=== PATIENT | male | born 1970 | race Caucasian/White ===

== ENCOUNTER → 2018-07-08 | Outpatient (CLI) | payer MEDICAID ==
--- NOTE | 2018-07-08 12:04 | XR ---
EXAMINATION TYPE: XR knee complete bilateral DATE OF EXAM: 07/08/2018 COMPARISON: NONE HISTORY: Pain TECHNIQUE: Three views are submitted. FINDINGS: Joint spaces are preserved. Osseous structures are intact. No acute fracture seen. IMPRESSION: 1. No acute fracture or dislocation. If symptoms persist consider MRI.
== END ==
LOC: RADXRYALE 11:45
PROVIDERS: ATTEND Family Medicine
DX: M25.561 Pain in right knee (principal); M25.562 Pain in left knee

== ENCOUNTER → 2018-07-22 | Outpatient (CLI) | payer MEDICAID ==
--- NOTE | 2018-07-22 13:27 | US ---
EXAMINATION TYPE: US venous doppler duplex LE LT DATE OF EXAM: 07/22/2018 1:17 PM COMPARISON: NONE CLINICAL HISTORY: M25.562 Pain in left knee. bilat knee strain 2+ weeks ago, h/o varicose vein stripp ing, no h/o dvt SIDE PERFORMED: Left TECHNIQUE: The lower extremity deep venous system is examined utilizing real time linear array sonog alistair with graded compression, doppler sonography and color-flow sonography. VESSELS IMAGED: External Iliac Vein (EIV) Common Femoral Vein Deep Femoral Vein Greater Saphenous Vein * Femoral Vein Popliteal Vein Small Saphenous Vein * Proximal Calf Veins (* superficial vessels) Left Leg: Appears negative for DVT Grayscale, color doppler, spectral doppler imaging performed of the deep veins of the left lower extr emity. There is normal flow, compressibility, vascular waveforms. IMPRESSION: No ultrasound evidence for acute DVT in the left lower extremity.
== END ==
LOC: RADUSWWP 12:49
PROVIDERS: ATTEND Orthopaedic Surgery
DX: M79.662 Pain in left lower leg (principal)

== ENCOUNTER → 2018-08-09 | Outpatient (CLI) | payer MEDICAID ==
--- NOTE | 2018-08-09 14:31 | MR ---
EXAMINATION TYPE: MR knee LT wo con DATE OF EXAM: 08/09/2018 COMPARISON: Bilateral knee x-ray July 08, 2018 HISTORY: Left knee pain, primary osteoarthritis, and effusion all per order. Pain and swelling after running injury 6 weeks ago per patient TECHNIQUE: Multiplanar, multisequence images of the knee is performed without IV contrast. FINDINGS: MEDIAL MENISCUS: Some medial extrusion of medial meniscus is present on coronal images with increased signal not extending to articular surface. LATERAL MENISCUS: Anterior and posterior horns are intact without tear. CRUCIATE LIGAMENTS: The anterior and posterior cruciate ligaments are intact and unremarkable. COLLATERAL LIGAMENTS: The medial collateral ligament and lateral collateral ligament complex are inta ct . Mild to moderate fluid signal surrounds the distal aspect of medial collateral ligament complex paracoronal image 18. EXTENSOR MECHANISM: Visualized quadriceps and patellar tendons are intact. EFFUSION: No significant suprapatellar joint effusion. POPLITEAL CYST: No popliteal/wong cyst. TRICOMPARTMENT SPACES: There is mild tricompartment joint space loss most prominent medial tibiofemor al compartment and mild spurring most prominent patellofemoral compartment. CARTILAGE: Some thinning of articular cartilage along posterior patellar pole consistent with chondra l malacia patella is present. No full-thickness loss is seen. BONE MARROW SIGNAL: There is focal area of diminished T1 signal measuring 2.6 cm transversely by 2.6 cm AP diameter sagittal image 23 and coronal image 18 with surrounding T2 hyperintensity consistent w ith nondisplaced transverse fracture and associated edema centered in the medial tibial plateau. Surr ounding edema measures roughly 4 cm transversely. OTHER: No additional significant abnormality is appreciated. IMPRESSION: 1. Acute nondisplaced transverse or stress fracture proximal tibial epiphysis with surrounding osseou s contusion. 2. Suspect intrasubstance tear of medial meniscus, no full-thickness meniscal tear. 3. Mild to moderate distal MCL sprain injury. 4. Background mild to borderline moderate osteoarthritic changes.
== END ==
LOC: RADMRIMAIN 13:16
PROVIDERS: ATTEND Orthopaedic Surgery
DX: S83.412A Sprain of medial collateral ligament of left knee, initial encounter (principal); M17.12 Unilateral primary osteoarthritis, left knee

== ENCOUNTER 2019-02-19 16:15 | Inpatient (IN) | payer MEDICAID ==
[2019-02-19] MEDS ORDERED: SODIUM CHLORIDE 0.9% 1,000 ML IV STA (17:43)
--- NOTE | 2019-02-19 18:14 | ED ---
General Adult HPI - General Chief complaint: Extremity Problem,Nontraumatic Stated complaint: Leg infection Time Seen by Provider: 02/19/19 17:10 Source: patient, RN notes reviewed, old records reviewed Mode of arrival: ambulatory Limitations: no limitations - History of Present Illness Initial comments: 48-year-old male patient past medical history of lower extremity venous insufficiency, chronic venous incision and ulceration bilaterally, this ED for e valuation of possible infection of lower extremity. Patient reports that yesterday he had some redness extending into his left posterior calf as well as some pain in the region. Patient also reports that he had an episode where he felt feverish, nauseous, with a headache yesterday which lasted approximately 5 minutes. Patient does report that this does feel similar to his panic attacks he has had in the past. Patient presented to his primary care physician for evaluation of this today, was recommended, to the emergency room. Patient denies any current nausea vomiting diarrhea, fevers or chills, headache, changes in vision, chest pain, shortness of breath. Patient does have pain in his left lower extremity. Patient does see the wound clinic on a weekly basis for his venous insufficiency ulcerations. Systemic: Pt denies fatigue, fever/chills, rash. Pt denies weakness, night sweats, weight loss. Neuro: Pt denies headache, visual disturbances, syncope or pre-syncope. HEENT: Pt denies ocular discharge or irritation, otalgia, rhinorrhea, pharyngitis or notable lymphadenopathy. Cardiopulmonary: Pt denies chest pain, SOB, heart palpitations, dyspnea on exertion. Abdominal/GI: Pt denies abdominal pain, n/v/d. : Pt denies dysuria, burning w/ urination, frequency/urgency. Denies new onset urinary or bowel incontinence. MSK: Pt denies loss of strength or function in extremities. Neuro: Pt denies new onset weakness, paresthesias. - Related Data Home Medications Medication Instructions Recorded Confirmed Citalopram Hydrobromide [CeleXA] 40 mg PO DAILY 10/01/18 02/19/19 Furosemide [Lasix] 20 mg PO BID 10/01/18 02/19/19 Testosterone Cypionate 100 mg IM WEEKLY 10/01/18 02/19/19 [Depo-Testosterone] Ciclopirox Olamine [Ciclopirox 1 applic TOPICAL BID 02/19/19 02/19/19 0.77% Topical Susp.] HYDROcodone/APAP 7.5-325MG [Nathalie 1 tab PO BID 02/19/19 02/19/19 7.5-325] Ibuprofen [Motrin] 800 mg PO Q8H 02/19/19 02/19/19 Pregabalin [Lyrica] 75 mg PO BID 02/19/19 02/19/19 clonazePAM [KlonoPIN] 1 - 2 tab PO DAILY PRN 02/19/19 02/19/19 Allergies Allergy/AdvReac Type Severity Reaction Status Date / Time acetaminophen [From Lortab] Allergy Itching Verified 02/19/19 16:49 hydrocodone [From Lortab] Allergy Itching Verified 02/19/19 18:16 Review of Systems ROS Statement: Those systems with pertinent positive or pertinent negative responses have been documented in the HPI. ROS Other: All systems not noted in ROS Statement are negative. Past Medical History Past Medical History: Skin Disorder, Sleep Apnea/CPAP/BIPAP, Vascular Disorder Additional Past Medical History / Comment(s): has cpap, wound cristiano legs- goes to wound center History of Any Multi-Drug Resistant Organisms: MRSA Date of last positivie culture/infection: 01/14/19 MDRO Source:: left leg Past Surgical History: Tonsillectomy Additional Past Surgical History / Comment(s): radio ablations cristiano legs, deviated septum repair Past Anesthesia/Blood Transfusion Reactions: Previous Problems w/ Anesthesia, Family History of Problems w/ Anesthesia Additional Past Anesthesia/Blood Transfusion Reaction / Comment(s): difficult intubation d/t small airway per pt. mother also difficult airway Past Psychological History: Anxiety Smoking Status: Never smoker Past Alcohol Use History: Occasional Past Drug Use History: None Reported - Past Family History Mother Family Medical History: Asthma Father Family Medical History: Dementia, Hypertension General Exam - General Exam Comments Initial Comments: Constitutional: NAD, AOX3, Pt has pleasant affect. HEENT: NC/AT, trachea midline, neck supple, no lymphadenopathy. Posterior p harynx non erythematous, without exudates. External ears appear normal, without discharge. Mucous membranes moist. Eyes PERRLA, EOM intact. There is no scleral icterus. No pallor noted. Cardiopulmonary: RRR, no murmurs, rubs or gallops, no JVD noted. Lungs CTAB in anterior and posterior mckeon. No peripheral edema. Abdominal exam: Abdomen soft and non-distended. Abdomen non-tender to palpation in all 4 quadrants. Bowel sounds active in LLQ. No hepatosplenomegaly. No ecchymosis Neuro: CN II-XII grossly intact. No nuchal rigidity. MSK: Chronic hyperpigmentation at ankles noted bilatearlly. Venous stasis ulcer noted at medial aspect of ankles bilatearlly. Mild amount of erythema streaking noted into posterior calf in LLE. No posterior calf tenderness bilaterally, homans sign negative bilaterally. Posterior tibialis and radial pulse +2 bilaterally. Sensation intact in upper and lower extremities. Full active ROM in upper and lower extremities, 5/5 stregnth. Limitations: no limitations Course Vital Signs 02/19/19 02/19/19 16:45 20:38 Temperature 97.8 F Pulse Rate 81 88 Respiratory 20 20 Rate Blood Pressure 112/65 101/84 O2 Sat by Pulse 97 99 Oximetry Medical Decision Making - Medical Decision Making 48-year-old male patient past medical history of lower extremity venous insufficiency, chronic venous incision and ulceration bilaterally, this ED for evaluation of possible infection of lower extremity. Patient reports that yesterday he had some redness extending into his left posterior calf as well as some pain in the region. Patient also reports that he had an episode where he felt feverish, nauseous, with a headache yesterday which lasted approximately 5 minutes. Patient does report that this does feel similar to his panic attacks he has had in the past. Patient presented to his primary care physician for evaluation of this today, was recommended, to the emergency room. Patient denies any current nausea vomiting diarrhea, fevers or chills, headache, changes in vision, chest pain, shortness of breath. Patient does have pain in his left lower extremity. Patient does see the wound clinic on a weekly basis for his ve nous insufficiency ulcerations. Pt VSS, afebrile. Physical exam displayed: Chronic hyperpigmentation at ankles noted bilatearlly. Venous stasis ulcer noted at medial aspect of ankles bilatearlly. Mild amount of erythema streaking noted into posterior calf in LLE. No posterior calf tenderness bilaterally, homans sign negative bilaterally. Posterior tibialis and radial pulse +2 bilaterally. Sensation intact in upper and lower extremities. Full active ROM in upper and lower extremities, 5/5 stregnth. Plain film of tibia/fibula and ankle displayed no acute osseous process. Subcutaneous edema around left calf. Left lower extremity ultrasound displayed no evidence of DVT, enlarged left inguinal lymph node. Laboratory Investigations revealed mildly increased creatinine. Otherwise nonimpressive. Patient administered 1 g Rocephin ED. Pt will be admitted for IV ABX and further evaluation. Pt admitted to Dr. Thacker. Case discussed with Dr. Ghosh. - Lab Data Result diagrams: 02/19/19 18:30 02/19/19 18:30 Lab Results 02/19/19 02/19/19 02/19/19 Range/Units 18:30 18:30 18:30 WBC 9.3 (3.8-10.6) k/uL RBC 5.20 (4.30-5.90) m/uL Hgb 15.6 (13.0-17.5) gm/dL Hct 44.7 (39.0-53.0) % MCV 86.0 (80.0-100.0) fL MCH 30.0 (25.0-35.0) pg MCHC 34.9 (31.0-37.0) g/dL RDW 13.6 (11.5-15.5) % Plt Count 135 L (150-450) k/uL Neutrophils % 93 % Lymphocytes % 3 % Monocytes % 2 % Eosinophils % 2 % Basophils % 0 % Neutrophils # 8.6 H (1.3-7.7) k/uL Lymphocytes # 0.3 L (1.0-4.8) k/uL Monocytes # 0.2 (0-1.0) k/uL Eosinophils # 0.2 (0-0.7) k/uL Basophils # 0.0 (0-0.2) k/uL Sodium 136 L (137-145) mmol/L Potassium 3.5 (3.5-5.1) mmol/L Chloride 99 (98-107) mmol/L Carbon Dioxide 26 (22-30) mmol/L Anion Gap 11 mmol/L BUN 29 H (9-20) mg/dL Creatinine 1.73 H (0.66-1.25) mg/dL Est GFR (CKD-EPI)AfAm 52 (>60 ml/min/1.73 sqM) Est GFR (CKD-EPI)NonAf 45 (>60 ml/min/1.73 sqM) Glucose 100 H (74-99) mg/dL Plasma Lactic Acid Alonzo 1.7 (0.7-2.0) mmol/L Calcium 9.2 (8.4-10.2) mg/dL Total Bilirubin 2.5 H (0.2-1.3) mg/dL AST 32 (17-59) U/L ALT 34 (21-72) U/L Alkaline Phosphatase 85 (38-126) U/L Total Protein 7.9 (6.3-8.2) g/dL Albumin 4.3 (3.5-5.0) g/dL Urine Color Urine Appearance (Clear) Urine pH (5.0-8.0) Ur Specific Maddock (1.001-1.035) Urine Protein (Negative) Urine Glucose (UA) (Negative) Urine Ketones (Negative) Urine Blood (Negative) Urine Nitrite (Negative) Urine Bilirubin (Negative) Urine Urobilinogen (<2.0) mg/dL Ur Leukocyte Esterase (Negative) Urine RBC (0-5) /hpf Urine WBC (0-5) /hpf Ur Squamous Epith Cells (0-4) /hpf Granular Casts (0) /lpf Urine Mucus (None) /hpf Influenza Type A RNA (Not Detectd) Influenza Type B (PCR) (Not Detectd) 02/19/19 02/19/19 Range/Units 18:30 18:30 WBC (3.8-10.6) k/uL RBC (4.30-5.90) m/uL Hgb (13.0-17.5) gm/dL Hct (39.0-53.0) % MCV (80.0-100.0) fL MCH (25.0-35.0) pg MCHC (31.0-37.0) g/dL RDW (11.5-15.5) % Plt Count (150-450) k/uL Neutrophils % % Lymphocytes % % Monocytes % % Eosinophils % % Basophils % % Neutrophils # (1.3-7.7) k/uL Lymphocytes # (1.0-4.8) k/uL Monocytes # (0-1.0) k/uL Eosinophils # (0-0.7) k/uL Basophils # (0-0.2) k/uL Sodium (137-145) mmol/L Potassium (3.5-5.1) mmol/L Chloride (98-107) mmol/L Carbon Dioxide (22-30) mmol/L Anion Gap mmol/L BUN (9-20) mg/dL Creatinine (0.66-1.25) mg/dL Est GFR (CKD-EPI)AfAm (>60 ml/min/1.73 sqM) Est GFR (CKD-EPI)NonAf (>60 ml/min/1.73 sqM) Glucose (74-99) mg/dL Plasma Lactic Acid Alonzo (0.7-2.0) mmol/L Calcium (8.4-10.2) mg/dL Total Bilirubin (0.2-1.3) mg/dL AST (17-59) U/L ALT (21-72) U/L Alkaline Phosphatase (38-126) U/L Total Protein (6.3-8.2) g/dL Albumin (3.5-5.0) g/dL Urine Color Yellow Urine Appearance Clear (Clear) Urine pH 5.5 (5.0-8.0) Ur Specific Maddock 1.011 (1.001-1.035) Urine Protein Trace H (Negative) Urine Glucose (UA) Negative (Negative) Urine Ketones Negative (Negative) Urine Blood Moderate H (Negative) Urine Nitrite Negative (Negative) Urine Bilirubin Negative (Negative) Urine Urobilinogen 2.0 (<2.0) mg/dL Ur Leukocyte Esterase Negative (Negative) Urine RBC 8 H (0-5) /hpf Urine WBC 4 (0-5) /hpf Ur Squamous Epith Cells 1 (0-4) /hpf Granular Casts 3 (0) /lpf Urine Mucus Rare H (None) /hpf Influenza Type A RNA Not Detected (Not Detectd) Influenza Type B (PCR) Not Detected (Not Detectd) Disposition Clinical Impression: Cellulitis, Venous stasis ulcer Disposition: ADMITTED IP TO THIS HOSP Condition: Serious Instructions (If sedation given, give patient instructions): Cellulitis (ED) Additional Instructions: Patient to adhere to previously discussed treatment plan and will take medication(s) as directed. Patient to follow up with PCP in 1-2 days. Patient to return to ED if symptoms do not improve. Please take medications as directed. Please return to ER if condition worsens in any way. Please follow-up with primary care provider as well as wound clinic in 1-2 days. Is patient prescribed a controlled substance at d/c from ED?: No Referrals: Jd Peng DO [Primary Care Provider] - 1-2 days
[2019-02-19 18:50] LABS: Basophils % (A) 0 %; Eosinophils # (A) 0.2 k/uL (0-0.7); Eosinophils % (A) 2 %; HCT 44.7 % (39.0-53.0); HGB 15.6 gm/dL (13.0-17.5); Lymphocytes # (A) 0.3 k/uL (1.0-4.8); Lymphocytes % (A) 3 %; MCHC 34.9 g/dL (31.0-37.0); Mean Platelet Volume 7.8; Monocytes # (A) 0.2 k/uL (0-1.0); Monocytes % (A) 2 %; Neutrophils # (A) 8.6 k/uL (1.3-7.7); Neutrophils % (A) 93 %; Platelet Count 135 k/uL (150-450); RDW 13.6 % (11.5-15.5); WBC 9.3 k/uL (3.8-10.6)
[2019-02-19 18:58] LABS: Albumin 4.3 g/dL (3.5-5.0); Calcium 9.2 mg/dL (8.4-10.2); Potassium 3.5 mmol/L (3.5-5.1); Total Bilirubin 2.5 mg/dL (0.2-1.3); Total Protein 7.9 g/dL (6.3-8.2)
[2019-02-19 18:59] LABS: Appearance,Urine Clear (Clear); Bilirubin,Urine Negative (Negative); Blood,Urine Moderate (Negative); Color,Urine Yellow; Glucose,Urine (UA) Negative (Negative); Granular Casts,Urine 3 /lpf (0); Ketones,Urine Negative (Negative); Leukocyte Esterase,Urine Negative (Negative); Mucus,Urine Rare /hpf; Nitrite,Urine Negative (Negative); PH, Urine 5.5 (5.0-8.0); Protein,Urine Trace (Negative); RBC,Urine 8 /hpf (0-5); Specific Gravity,Urine 1.011 (1.001-1.035); Squamous Epithelial Cell,Urine 1 /hpf (0-4); WBC,Urine 4 /hpf (0-5)
--- NOTE | 2019-02-19 19:16 | US ---
EXAMINATION TYPE: US venous doppler duplex LE BI DATE OF EXAM: 02/19/2019 7:08 PM COMPARISON: NONE CLINICAL HISTORY: Pain. Pain had ablation done on both legs. Patient currently going to wound center for open wound on left leg. SIDE PERFORMED: Bilateral TECHNIQUE: The lower extremity deep venous system is examined utilizing real time linear array sonog alistair with graded compression, doppler sonography and color-flow sonography. VESSELS IMAGED: External Iliac Vein (EIV) Common Femoral Vein Deep Femoral Vein Greater Saphenous Vein * Femoral Vein Popliteal Vein Small Saphenous Vein * Proximal Calf Veins (* superficial vessels) Right Leg: Negative for DVT Left Leg: Negative for DVT Multiple hypoechoic area seen left groin largest measures 4.9cm. IMPRESSION: No evidence of deep venous thrombosis in both legs. There is enlarged left inguinal lymph nodes.
--- NOTE | 2019-02-19 19:23 | XR ---
EXAMINATION TYPE: XR ankle complete LT DATE OF EXAM: 02/19/2019 COMPARISON: NONE HISTORY: Pain TECHNIQUE: 3 views FINDINGS: There is soft tissue swelling around the ankle joint. I see no fracture nor dislocation. Th ere is an Achilles calcaneal spur. Ankle mortise is anatomic. IMPRESSION: Soft tissue swelling. No fracture seen.
--- NOTE | 2019-02-19 19:25 | XR ---
EXAMINATION TYPE: XR tibia fibula LT DATE OF EXAM: 02/19/2019 COMPARISON: NONE HISTORY: Nonhealing wound TECHNIQUE: 4 views FINDINGS: Tibia and fibula appear intact. I see no fracture nor dislocation. There is subcutaneous ed zaire around the calf. Knee joint and ankle joint appear intact. IMPRESSION: Subcutaneous edema around the calf. No fracture.
[2019-02-19] MEDS ORDERED: CEPHALEXIN 500MG STARTER PACK 4 CAP BTL PO STA (20:44)
[2019-02-19] MEDS ORDERED: NALOXONE 0.4 MG/ML 1 ML VIAL IV PRN (20:57)
[2019-02-19] MEDS ORDERED: SODIUM CHLORIDE 0.9% 1,000 ML IV SCH (21:00)
[2019-02-19] MEDS ORDERED: VANCOMYCIN IV PER PHARMACY 1 EACH MISC MISCELLANE PRN (21:07)
[2019-02-19] MEDS ORDERED: VANCOMYCIN 2,500 MG in SODIUM CHLORIDE 0.9% 500 ML 500 ML IVPB STA (21:15)
[2019-02-19] MEDS ORDERED: ACETAMINOPHEN TAB 325 MG TAB PO PRN (23:48)
[2019-02-19] MEDS ORDERED: IBUPROFEN 800 MG TAB PO PRN ×2 (23:49→23:51)
[2019-02-20] MEDS ORDERED: HYDROcodone/APAP 7.5-325MG 1 EACH TAB PO ONE (00:52)
[2019-02-20] MEDS: ACETAMINOPHEN TAB 325 MG TAB PO SCH ×4 (00:56→16:14)
[2019-02-20 08:06] LABS: Basophils % (A) 1 %; Eosinophils # (A) 0.1 k/uL (0-0.7); Eosinophils % (A) 1 %; HCT 46.1 % (39.0-53.0); HGB 15.8 gm/dL (13.0-17.5); Lymphocytes # (A) 0.3 k/uL (1.0-4.8); Lymphocytes % (A) 4 %; MCH 30.2 pg (25.0-35.0); MCHC 34.2 g/dL (31.0-37.0); MCV 88.3 fL (80.0-100.0); Mean Platelet Volume 8.5; Monocytes # (A) 0.3 k/uL (0-1.0); Monocytes % (A) 4 %; Neutrophils # (A) 7.1 k/uL (1.3-7.7); Neutrophils % (A) 90 %; Platelet Count 122 k/uL (150-450); RBC 5.22 m/uL (4.30-5.90); RDW 13.8 % (11.5-15.5); WBC 7.9 k/uL (3.8-10.6)
[2019-02-20 08:21] LABS: Calcium 8.6 mg/dL (8.4-10.2); Potassium 3.9 mmol/L (3.5-5.1)
[2019-02-20] MEDS: MAG HYDROX/AL HYDROX/SIMETH 30 ML CUP PO PRN ×2 (09:58→16:14)
--- NOTE | 2019-02-20 12:28 | P.HPIM ---
History of Present Illness Chief Complaint: Left lower extremity redness This very pleasant 48-year-old gentleman with a past medical history significant for venous insufficiency in his lower extremities, chronic ulcer in the right lower extremity, comes in to the ER with above-mentioned complaints. The patient says that she has an ulcer in his left lower extremity which has not been healing or very slowly healing for the past 2 years. 2 days ago he started noticing that his left lower extremity starting to get red and the redness was worsening and extending up to involve his thighs. 2 days ago he also notices that he's been having more altered level of consciousness and is having some dizziness. He says that he was also having blurry vision. He felt feverish and was having Reiger's as well. He did not take his temperature home. He does came into the ER for further admission and management. Patient initially was complaining of chest heaviness probably due to anxiety and was also having difficulty breathing. He otherwise did not complain of any abdominal pain, nausea and vomiting, or diarrhea constipation, no itch no rash. ER course-temperature 98.2 pulse 66 respiration 18 blood pressure 113/67. Labwork was done yesterday showed WAC 9.3 hemoglobin 15.6 platelets 135 sodium 136 potassium 3.5 bun 29 creatinine 1.73 lactic acid 1.7. Urinalysis was negative, influenza A and B was negative x-ray of the left leg showed subcutaneous edema around the cough no fracture. Ultrasound of the bilateral lower extremity does not show any evidence of DVT. Patient was started given Rocephin and vancomycin and admitted to the hospitalist service a further management. Since admission his creatinine has bumped up to 2.17. Review of Systems All systems: negative Past Medical History Past Medical History: Skin Disorder, Sleep Apnea/CPAP/BIPAP, Vascular Disorder Additional Past Medical History / Comment(s): has cpap, wound cristiano legs- goes to wound center History of Any Multi-Drug Resistant Organisms: MRSA Date of last positivie culture/infection: 01/14/19 MDRO Source:: left leg Past Surgical History: Tonsillectomy Additional Past Surgical History / Comment(s): radio ablations cristiano legs, dev iated septum repair Past Anesthesia/Blood Transfusion Reactions: Previous Problems w/ Anesthesia, Family History of Problems w/ Anesthesia Additional Past Anesthesia/Blood Transfusion Reaction / Comment(s): difficult intubation d/t small airway per pt. mother also difficult airway Past Psychological History: Anxiety Smoking Status: Never smoker Past Alcohol Use History: Occasional Past Drug Use History: None Reported - Past Family History Mother Family Medical History: Asthma Father Family Medical History: Dementia, Hypertension Medications and Allergies Home Medications Medication Instructions Recorded Confirmed Type Citalopram Hydrobromide [CeleXA] 40 mg PO DAILY 10/01/18 02/19/19 History Furosemide [Lasix] 20 mg PO BID 10/01/18 02/19/19 History Testosterone Cypionate 100 mg IM WEEKLY 10/01/18 02/19/19 History [Depo-Testosterone] Ciclopirox Olamine [Ciclopirox 1 applic TOPICAL BID 02/19/19 02/19/19 History 0.77% Topical Susp.] HYDROcodone/APAP 7.5-325MG [Cidra 1 tab PO BID 02/19/19 02/19/19 History 7.5-325] Ibuprofen [Motrin] 800 mg PO Q8H 02/19/19 02/19/19 History Pregabalin [Lyrica] 75 mg PO BID 02/19/19 02/19/19 History clonazePAM [KlonoPIN] 1 - 2 tab PO DAILY PRN 02/19/19 02/19/19 History Allergies Allergy/AdvReac Type Severity Reaction Status Date / Time acetaminophen [From Lortab] Allergy Itching Verified 02/19/19 16:49 hydrocodone [From Lortab] Allergy Itching Verified 02/19/19 18:16 Physical Exam Vitals: Vital Signs Temp Pulse Pulse Resp BP BP Pulse Ox 02/20/19 07:00 98.2 F 66 18 113/67 95 02/20/19 03:39 92 124/77 02/20/19 02:40 98.3 F 65 20 90/66 96 02/20/19 00:19 98.2 F 87 20 109/68 96 02/19/19 23:45 100.9 F H 88 20 116/56 99 02/19/19 22:00 99.7 F H 91 20 118/80 96 02/19/19 20:38 88 20 101/84 99 02/19/19 16:45 97.8 F 81 20 112/65 97 Intake and Output 02/19/19 02/20/19 02/20/19 22:59 06:59 14:59 Other: # Voids 1 Weight 146.964 kg On exam, alert and oriented x3. HEENT: Conjunctivae normal. eyes normal. NECK: No JVD. No thyroid enlargement. No LNs CARDIOVASCULAR: S1, S2 muffled. No murmur RESPIRATION: Breath sounds diminished in the bases. No rhonchi or crackles. No bronchial breathing. ABDOMEN: Soft, nontender . No guarding. no masses palpable. No ascites, No hepatosplenomegaly.Bowel sounds heard. LEGS: Patient has hyperpigmentation due to status dermatitis in bilateral lower extremity. His left lower extremity has an ulcer just below the midline in the anterior garnett more towards the medial side. The inferior part of the ulcer is open. Patient has surrounding erythema and redness all over his lower extremities extending to the thigh in the form of striae. NERVOUS SYSTEM: Cranial N 2-12 grossly normal. Moves all 4 limbs. No focal deficits. No sensory deficit. No signs of cerebellar dysfucntion. Skin: no ulcer no rash Results CBC & Chem 7: 02/20/19 07:10 02/20/19 07:10 Labs: Abnormal Lab Results - Last 24 Hours (Table) 02/19/19 02/19/19 02/19/19 Range/Units 18:30 18:30 18:30 Plt Count 135 L (150-450) k/uL Neutrophils # 8.6 H (1.3-7.7) k/uL Lymphocytes # 0.3 L (1.0-4.8) k/uL Sodium 136 L (137-145) mmol/L BUN 29 H (9-20) mg/dL Creatinine 1.73 H (0.66-1.25) mg/dL Glucose 100 H (74-99) mg/dL Total Bilirubin 2.5 H (0.2-1.3) mg/dL Urine Protein Trace H (Negative) Urine Blood Moderate H (Negative) Urine RBC 8 H (0-5) /hpf Urine Mucus Rare H (None) /hpf 02/20/19 02/20/19 Range/Units 07:10 07:10 Plt Count 122 L (150-450) k/uL Neutrophils # (1.3-7.7) k/uL Lymphocytes # 0.3 L (1.0-4.8) k/uL Sodium (137-145) mmol/L BUN 33 H (9-20) mg/dL Creatinine 2.16 H (0.66-1.25) mg/dL Glucose 102 H (74-99) mg/dL Total Bilirubin (0.2-1.3) mg/dL Urine Protein (Negative) Urine Blood (Negative) Urine RBC (0-5) /hpf Urine Mucus (None) /hpf Thrombosis Risk Factor Assmnt - Choose All That Apply Any of the Below Risk Factors Present?: Yes Each Factor Represents 1 point: Age 41-60 years, Obesity (BMI >25), Swollen legs (current) Other Risk Factors: No Other congenital or acquired thrombophilia - If yes, enter type in comment: No Thrombosis Risk Factor Assessment Total Risk Factor Score: 3 Thrombosis Risk Factor Assessment Level: Moderate Risk Assessment and Plan Assessment: - Left lower extremity cellulitis - AK I - History of venous insufficiency - History of chronic 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 - We'll put on telemetry - Patient is on vancomycin. Will add cefepime - We'll consult infectious disease - Patient's creatinine has bumped up to 2.16. We'll start him on IV fluids and also order for serum osmolarity urine osmolality and urinary lites. We'll hold on the patient's Lasix - If the patient's kidney functions don't improve, nephrology will be consulted - We'll resume rest the patient's home medications - DVT and GI prophylaxis - We'll order for lab work in the morning - Expected length of stay is more than 2 midnights - Patient is full code Time with Patient: Greater than 30
[2019-02-20] MEDS: SODIUM CHLORIDE 0.9% 1,000 ML IV SCH (12:41)
[2019-02-20] MEDS ORDERED: CEFEPIME 2 GM in SODIUM CHLORIDE 0.9% 100 ML IVPB SCH (13:00)
[2019-02-20] MEDS: HYDROcodone/APAP 7.5-325MG 1 EACH TAB PO SCH (21:38)
[2019-02-20] MEDS: PREGABALIN 75 MG CAP PO SCH (21:38)
[2019-02-20] MEDS: CLOTRIMAZOLE 1% CREAM 15 GM TUBE TOPICAL SCH (21:39)
[2019-02-20] MEDS ORDERED: VANCOMYCIN 2,500 MG in SODIUM CHLORIDE 0.9% 500 ML 500 ML IVPB SCH (22:00)
--- NOTE | 2019-02-20 22:37 | P.CONS ---
History of Present Illness - Reason for Consult Consult date: 02/20/19 Left leg wound and cellulitis Requesting physician: Yovany Kelly - Chief Complaint Left leg swelling and redness x few days - History of Present Illness Patient is a 48-year-old male with a past medical history significant for chronic left leg venous stasis ulcer for almost a year now with the patient follows at [facility] care center patient is presenting to the ER at [facility] yesterday with a chief complaints of increasing swelling and redness to the left leg that has been going on for the last few days the patient be complaining of throbbing pain to the leg with intensity of almost 7-8 out of 10 and no radiation with redness spreading to the upper thigh area patient wound on the left anterior leg and do have a necrotic base there is no foul-smelling drainage the patient has been complaining of fever with rigors and chills on p resentation to the hospital the patient did have fever of 100.9F, patient did have lower extremity venous tablet dose was negative for DVT however did shows evidence of left inguinal lymphadenopathy x-rays did not show any bony changes the patient was started on cefepime and vancomycin and infectious disease was consulted for further recommendation regarding antibiotic therapy, Review of Systems CONSTITUTIONAL: Positive for weakness. Fever EYES: No complaint. ENT:No complaint. RESPIRATORY: No complaint. CARDIOVASCULAR: No complaint. GENITOURINARY: No complaint. GASTROINTESTINAL: No complaint. MUSCULOSKELETAL: As per history of present. INTEGUMENTARY: As per history of present illness. PSYCHOLOGICAL: No complaint. ENDOCRINE: No complaint. NEUROLOGIC: No complaint. Past Medical History Past Medical History: Skin Disorder, Sleep Apnea/CPAP/BIPAP, Vascular Disorder Additional Past Medical History / Comment(s): has cpap, wound cristiano legs- goes to wound center History of Any Multi-Drug Resistant Organisms: MRSA Year Discovered:: 01/14/19 MDRO Source:: left leg Past Surgical History: Tonsillectomy Additional Past Surgical History / Comment(s): radio ablations cristiano legs, deviated septum repair Past Anesthesia/Blood Transfusion Reactions: Previous Problems w/ Anesthesia, Family History of Problems w/ Anesthesia Additional Past Anesthesia/Blood Transfusion Reaction / Comm: difficult intubation d/t small airway per pt. mother also difficult airway Past Psychological History: Anxiety Smoking Status: Never smoker Past Alcohol Use History: Occasional Past Drug Use History: None Reported - Past Family History Mother Family Medical History: Asthma Father Family Medical History: Dementia, Hypertension Medications and Allergies Home Medications Medication Instructions Recorded Confirmed Type Citalopram Hydrobromide [CeleXA] 40 mg PO DAILY 10/01/18 02/19/19 History Furosemide [Lasix] 20 mg PO BID 10/01/18 02/19/19 History Testosterone Cypionate 100 mg IM WEEKLY 10/01/18 02/19/19 History [Depo-Testosterone] Ciclopirox Olamine [Ciclopirox 1 applic TOPICAL BID 02/19/19 02/19/19 History 0.77% Topical Susp.] HYDROcodone/APAP 7.5-325MG [[place] 1 tab PO BID 02/19/19 02/19/19 History 7.5-325] Ibuprofen [Motrin] 800 mg PO Q8H 02/19/19 02/19/19 History Pregabalin [Lyrica] 75 mg PO BID 02/19/19 02/19/19 History clonazePAM [KlonoPIN] 1 - 2 tab PO DAILY PRN 02/19/19 02/19/19 History Allergies Allergy/AdvReac Type Severity Reaction Status Date / Time acetaminophen [From Lortab] Allergy Itching Verified 02/19/19 16:49 hydrocodone [From Lortab] Allergy Itching Verified 02/19/19 18:16 Physical Exam Vitals: Vital Signs Temp Pulse Pulse Resp BP BP Pulse Ox 02/20/19 07:00 98.2 F 66 18 113/67 95 02/20/19 03:39 92 124/77 02/20/19 02:40 98.3 F 65 20 90/66 96 02/20/19 00:19 98.2 F 87 20 109/68 96 02/19/19 23:45 100.9 F H 88 20 116/56 99 02/19/19 22:00 99.7 F H 91 20 118/80 96 02/19/19 20:38 88 20 101/84 99 02/19/19 16:45 97.8 F 81 20 112/65 97 Intake and Output 02/19/19 02/20/19 02/20/19 22:59 06:59 14:59 Other: # Voids 1 Weight 146.964 kg General: The patient is awake and alert, in no distress. Skin: Left anterior leg with a wound with a necrotic base patient did have swelling and redness extending all over to the mid thigh area no foul-smelling drainage Eye: Pupils are equal, round, there is normal conjunctiva bilaterally. Ears, nose, mouth and throat: There are moist mucous membranes and no oral lesions. Neck: The neck is supple, there is no thyromegaly. Cardiovascular: S1-S2 regular rate and rhythm. No murmur. Respiratory: Unlabored breathing clear to auscultation bilaterally Gastrointestinal: Soft, non-distended, non-tender abdomen without masses or organomegaly noted. Neurological: There are no obvious motor or sensory deficits. Coordination appears grossly intact. Speech is normal. Psychiatric: Patient is awake and alert and oriented 3, appropriate mood & affect, normal judgment. Results CBC & Chem 7: 02/20/19 07:10 02/20/19 07:10 Labs: Abnormal Lab Results - Last 24 Hours (Table) 02/19/19 02/19/19 02/19/19 Range/Units 18:30 18:30 18:30 Plt Count 135 L (150-450) k/uL Neutrophils # 8.6 H (1.3-7.7) k/uL Lymphocytes # 0.3 L (1.0-4.8) k/uL Sodium 136 L (137-145) mmol/L BUN 29 H (9-20) mg/dL Creatinine 1.73 H (0.66-1.25) mg/dL Glucose 100 H (74-99) mg/dL Total Bilirubin 2.5 H (0.2-1.3) mg/dL Urine Protein Trace H (Negative) Urine Blood Moderate H (Negative) Urine RBC 8 H (0-5) /hpf Urine Mucus Rare H (None) /hpf 02/20/19 02/20/19 Range/Units 07:10 07:10 Plt Count 122 L (150-450) k/uL Neutrophils # (1.3-7.7) k/uL Lymphocytes # 0.3 L (1.0-4.8) k/uL Sodium (137-145) mmol/L BUN 33 H (9-20) mg/dL Creatinine 2.16 H (0.66-1.25) mg/dL Glucose 102 H (74-99) mg/dL Total Bilirubin (0.2-1.3) mg/dL Urine Protein (Negative) Urine Blood (Negative) Urine RBC (0-5) /hpf Urine Mucus (None) /hpf Assessment and Plan Assessment: 1-patient to the hospital with a left lower extremity cellulitis in this patient who did have a chronic nonhealing wound to the left anterior leg area with the patient has for more than a year now the likely organism need to cover will be gram-positive skin vijay underlying gram-negative infection not entirely excluded. 2-patient did have borderline kidney function and will need to monitor closely for any nephrotoxicity (1) Cellulitis Current Visit: Yes Status: Acute Code(s): L03.90 - CELLULITIS, UNSPECIFIED SNOMED Code(s): 154311274 (2) Venous stasis ulcer Current Visit: Yes Status: Acute Code(s): I83.009 - VARICOSE VEINS OF UNSP LOWER EXTREMITY W ULCER OF UNSP SITE; L97.909 - NON-PRS CHRONIC ULC UNSP PRT OF UNSP LOW LEG W UNSP SEVERITY SNOMED Code(s): 443808092 Plan: 1-we will request consult with vascular surgery for debridement of the wound and deep cultures 2-vancomycin pharmacy to dose target trough of 15 while watching his kidney function and Vanco trough closely 3-marked the area of the redness left leg We will follow-up on his clinical condition and cultures to further adjust medication if needed Thank you for this consultation will follow this patient along with you Time with Patient: Greater than 30
[2019-02-20] MEDS: diphenhydrAMINE 50 MG/ML 1 ML VIAL IVP PRN (23:27)
[2019-02-21] MEDS: ACETAMINOPHEN TAB 325 MG TAB PO SCH ×4 (00:19→17:40)
[2019-02-21] MEDS: SODIUM CHLORIDE 0.9% 1,000 ML IV SCH ×3 (02:04→17:41)
--- NOTE | 2019-02-21 06:59 | CONS ---
CONSULTATION This is a 48-year-old gentleman who came with redness and cellulitis of the left lower extremity with some redness and patch distribution of the anterior aspect of the thigh. The patient has history of chronic venous hypertension and he has been coming to the wound clinic for local wound care. The patient had a endovenous laser ablation of both greater saphenous veins at [facility] by Dr. Carrillo. No history of diabetes. Patient has history of obesity. PHYSICAL EXAMINATION: On examination, neck is supple. Chest is clear. Abdomen is soft, protuberant. Femorals are 1+. The patient has a venous wound chronic left lower extremity at the anterior aspect of the leg 3 x 4 cm and mild cellulitis and upper thigh has some patchy distribution of the most likely a skin reaction with some slight tenderness. PLAN: We will use Santyl cream for the ulcer on the left lower extremity. Patient on IV antibiotic. We will follow with you. DIANE / DONNAN: [id number] /
[2019-02-21] MEDS: CITALOPRAM HYDROBROMIDE 20 MG TAB PO SCH (07:13)
[2019-02-21] MEDS: PREGABALIN 75 MG CAP PO SCH ×2 (07:14→20:09)
[2019-02-21] MEDS: HYDROcodone/APAP 7.5-325MG 1 EACH TAB PO SCH ×2 (07:14→20:09)
[2019-02-21] MEDS: CLOTRIMAZOLE 1% CREAM 15 GM TUBE TOPICAL SCH ×2 (07:20→20:42)
[2019-02-21] MEDS ORDERED: CEFEPIME 2 GM in SODIUM CHLORIDE 0.9% 100 ML IVPB SCH (09:00)
[2019-02-21 09:19] LABS: HCT 44.2 % (39.0-53.0); HGB 15.1 gm/dL (13.0-17.5); MCH 30.2 pg (25.0-35.0); MCV 88.8 fL (80.0-100.0); Mean Platelet Volume 9.6; Platelet Count 131 k/uL (150-450); RBC 4.98 m/uL (4.30-5.90); WBC 10.4 k/uL (3.8-10.6)
[2019-02-21 09:31] LABS: Calcium 8.7 mg/dL (8.4-10.2); Potassium 3.6 mmol/L (3.5-5.1)
--- NOTE | 2019-02-21 14:03 | P.PN ---
Subjective Patient says that last name enlargement,, his whole-body turned red. He is very scared to add vancomycin again. I tried to explain to him that it's a side effect probably not an ALLERGIC reaction and is probably due to him getting her ankle infusion at a faster rate. Patient still scared Patient's lower extremity redness is worsening. He is not having any fevers still A chest pain or racing heart, no cough no shortness of breath Objective - Vital Signs Vital signs: Vital Signs Temp 97.5 F L 02/21/19 07:00 Pulse 95 02/21/19 07:15 Resp 16 02/21/19 07:15 BP 120/56 02/21/19 07:00 Pulse Ox 98 02/21/19 07:00 Intake & Output 02/20/19 02/21/19 02/21/19 18:59 06:59 18:59 Intake Total 1400 500 Balance 1400 500 Intake: IV 1400 500 Cefepime 2 gm In Sodium 100 Chloride 0.9% 100 ml @ 200 mls/hr IVPB DAILY S[facility] Rx#:[id number] Sodium Chloride 0.9% 1, 800 000 ml @ 100 mls/hr IV . Q10H S[facility] Rx#:[id number] Vancomycin 2,500 mg In 500 500 Sodium Chloride 0.9% 500 ml 500 ml @ 167 mls/hr IVPB Q24H S[facility] Rx#: [id number] Other: # Voids 1 - Exam On exam, alert and oriented x3. HEENT: Conjunctivae normal. eyes normal. NECK: No JVD. No thyroid enlargement. No LNs CARDIOVASCULAR: S1, S2 positive RESPIRATION: Breath sounds diminished in the bases. No rhonchi or crackles. No bronchial breathing. ABDOMEN: Soft, nontender . No guarding. no masses palpable. No ascites, No hepatosplenomegaly.Bowel sounds heard. LEGS: Left lower extremity is red worse than yesterday. Is also having shaking erythema going down to his medial thigh NERVOUS SYSTEM: Cranial N 2-12 grossly normal. Moves all 4 limbs. No focal deficits. No sensory deficit. No signs of cerebellar dysfucntion. Skin: no ulcer no rash - Labs CBC & Chem 7: 02/21/19 09:04 02/21/19 09:04 Labs: Abnormal Lab Results - Last 24 Hours (Table) 02/21/19 02/21/19 Range/Units 09:04 09:04 Plt Count 131 L (150-450) k/uL Sodium 135 L (137-145) mmol/L BUN 26 H (9-20) mg/dL Creatinine 1.72 H (0.66-1.25) mg/dL Glucose 149 H (74-99) mg/dL Microbiology - Last 24 Hours (Table) 02/19/19 18:30 Blood Culture - Preliminary Blood No Growth after 24 hours Assessment and Plan Assessment: - Left lower extremity cellulitis - AK I - History of venous insufficiency - History of chronic nonhealing ulcer in the left lower extremity - History of sleep apnea and CPAP - History of anxiety Plan - Patient was on vancomycin and cefepime - Patient doesn't want to be on vancomycin as he had redness of his body. The patient was scheduled. We will put him on Zyvox until infectious disease sees him - His kidney functions are improving. We'll continue the IV fluids and we'll continue to hold Lasix for now - We'll follow the patient Time with Patient: Greater than 30
[2019-02-21] MEDS ORDERED: SODIUM CHLORIDE 0.9% IVPB SCH (16:00)
[2019-02-21] MEDS ORDERED: DAPTOMYCIN IVPB SCH (16:00)
--- NOTE | 2019-02-21 16:46 | PN ---
PROGRESS NOTE DATE OF SERVICE: 02/21/2019 REASON FOR FOLLOWUP: Left lower extremity weakness as well as secondary cellulitis. 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 That has been discontinued. The patient has been complaining of more swelling to his left leg compared to yesterday. He did have a dull aching pain, 4 to 5 out of 10, and no radiation. The patient denies having any chest pain or shortness of breath or cough. No abdominal pain. No nausea, vomiting or diarrhea. REVIEW OF SYSTEMS: Positive points have been mentioned in the HPI. Other systems negative. Past medical and surgical reviewed. Change in medication reviewed. PHYSICAL EXAMINATION: Blood pressure 120/56 with a pulse of 95, temperature 97.5. He is 98% on room air. General description is a middle-aged male up in the bed in no distress. HEENT EXAMINATION: No pallor or scleral icterus. Oral mucosa membrane is dry. LUNGS: Unlabored breathing. Clear to auscultation. HEART: S1, S2. Regular rate and rhythm. ABDOMEN: Soft. No tenderness. Left leg wound which has opened up. The wound was clean. Culture has been obtained. Still has some cellulitis in the left middle leg area which is warm to touch. Neurologically the patient is awake, alert, oriented x3. Mood and affect normal. LABS: BUN of 26, creatinine 1.72. Hemoglobin is 15.1, hematocrit 10.4. Blood culture has been negative so far. DIAGNOSTIC IMPRESSION AND PLAN: Patient with acute left lower extremity cellulitis with a chronic venostasis ulcer to the left anterior leg, likely secondary to a gram-positive, with previous history of MRSA; could be the same pathogen. Now the patient developing Mariah syndrome. He apparently has been refusing further IV vancomycin. At this time we did obtain cultures and will discuss further with Vascular Surgery for possible further debridement of this wound. Antibiotic currently covered with cefepime, dose to be adjusted up to 2 grams q.12 in view of the patient being on Celexa. That will currently contraindicate the use of the linezolid with risk of serotonin syndrome. Antibiotic will be switched over to daptomycin, adjusting antibiotic further on the basis of the culture report. Local wound care with [facility]. Continue with supportive care. MMODL / IJN: [id number] /
[2019-02-21] MEDS ORDERED: LINEZOLID 600 MG in DEXTROSE/WATER 1 300ML.BAG IVPB SCH (18:00)
[2019-02-21] MEDS: CEFEPIME 2 GM in SODIUM CHLORIDE 0.9% 100 ML IVPB SCH (20:10)
[2019-02-21] MEDS: MAG HYDROX/AL HYDROX/SIMETH 30 ML CUP PO PRN (20:14)
[2019-02-21] MEDS ORDERED: ACETAMINOPHEN TAB 325 MG TAB PO STA (21:22)
[2019-02-22] MEDS: ACETAMINOPHEN TAB 325 MG TAB PO SCH ×4 (00:43→17:25)
[2019-02-22] MEDS: clonazePAM 0.5 MG TAB PO PRN (00:43)
[2019-02-22] MEDS: SODIUM CHLORIDE 0.9% 1,000 ML IV SCH ×2 (04:05→15:54)
[2019-02-22 08:18] LABS: HCT 43.3 % (39.0-53.0); HGB 14.2 gm/dL (13.0-17.5); MCH 29.4 pg (25.0-35.0); MCHC 32.7 g/dL (31.0-37.0); MCV 89.8 fL (80.0-100.0); Mean Platelet Volume 9.1; Platelet Count 146 k/uL (150-450); RBC 4.82 m/uL (4.30-5.90); RDW 14.3 % (11.5-15.5); WBC 10.5 k/uL (3.8-10.6)
[2019-02-22 08:30] LABS: Calcium 8.5 mg/dL (8.4-10.2); Potassium 3.5 mmol/L (3.5-5.1)
[2019-02-22] MEDS: HYDROcodone/APAP 7.5-325MG 1 EACH TAB PO SCH ×2 (10:12→22:52)
[2019-02-22] MEDS: PREGABALIN 75 MG CAP PO SCH ×2 (10:12→22:53)
[2019-02-22] MEDS: CITALOPRAM HYDROBROMIDE 20 MG TAB PO SCH (10:12)
[2019-02-22] MEDS: CEFEPIME 2 GM in SODIUM CHLORIDE 0.9% 100 ML IVPB SCH (10:13)
[2019-02-22] MEDS: CLOTRIMAZOLE 1% CREAM 15 GM TUBE TOPICAL SCH ×2 (13:23→22:53)
[2019-02-22] MEDS: BUTALB/APAP/CAFF 50-325-40MG TAB PO PRN ×2 (13:51→17:24)
--- NOTE | 2019-02-22 15:07 | PN ---
PROGRESS NOTE DATE OF SERVICE: 02/22/2019. REASON FOR FOLLOWUP: Left leg wound venous stasis ulcer secondary to cellulitis. INTERVAL HISTORY: The patient did spike a fever 102.5 degrees last night. The patient is afebrile significant swelling and tenderness to the thigh area. The patient denies having any chest pain or shortness of breath or cough. Abdominal pain. No diarrhea. PHYSICAL EXAMINATION: Blood pressure 112/58 with a pulse of 90, temperature 98.5. He is 97% on room air. General description is a middle-aged male lying in bed in no distress. Respiratory system: Unlabored breathing. Clear to auscultation anteriorly. Heart S1, S2. Regular rate and rhythm. Abdomen soft, no tenderness. Left thigh remains to be swollen and red and warm to touch. LABS: BUN of 24, creatinine 1.57, hemoglobin is 14.1, white count 10.5. DIAGNOSTIC IMPRESSION AND PLAN: Patient with acute left lower extremity cellulitis, possible secondary to gram-positive for this patient has previously grown MRSA despite being on daptomycin. The patient not showing that much clinical improvement as would been have been suspected. The patient daptomycin will be continued. However add clindamycin for possible coverage for double coverage for the Staphylococcus which may be playing a role and re- evaluate the patient tomorrow. Continue supportive care. MMODL / IJN: [id number] /
--- NOTE | 2019-02-22 15:11 | P.PN ---
Subjective Patient is admitted for left anterior garnett ulcer with infection with cellulitis extending up to the left thigh area. Patient is is alert his extending up wound. Vascular surgery valid patient infectious disease evaluate the patient patient is presently on daptomycin and cefepime midthigh. Wound cultures are not available yet. Patient is comparing of severe pain and headache for which I am ordering Fioricet as well as tramadol for pain patient is on [place] presently. Constitutional: Denied any fatigue denied any fever. Cardio vascular: denied any chest pain, palpitations Gastrointestinal denied any nausea vomiting Pulmonary: Denied any shortness of breath cough Neurologic denied any new focal deficits All inpatient medications were reviewed and appropriate changes in these medications as dictated in the interval history and assessment and plan. Objective - Vital Signs Vital signs: Vital Signs Temp 98.3 F 02/22/19 15:00 Pulse 99 02/22/19 15:00 Resp 16 02/22/19 15:00 BP 127/58 02/22/19 15:00 Pulse Ox 95 02/22/19 15:00 Intake & Output 02/21/19 02/22/19 02/22/19 18:59 06:59 18:59 Intake Total 400 500 Output Total 3 475 Balance -3 -75 500 Intake: IV 400 500 Cefepime 2 gm In Sodium 100 100 Chloride 0.9% 100 ml @ 200 mls/hr IVPB DAILY [facility] Rx#:[id number] Sodium Chloride 0.9% 1, 300 400 000 ml @ 100 mls/hr IV . Q10H [facility] Rx#:[id number] Output: Urine 3 475 Other: # Voids 2 # Bowel Movements 1 - Exam PHYSICAL EXAMINATION: GENERAL: The patient is alert and oriented x3, not in any acute distress. Well developed, well nourished. Patient is obese HEENT: Pupils are round and equally reacting to light. EOMI. No scleral icterus. No conjunctival pallor. Normocephalic, atraumatic. No pharyngeal erythema. No thyromegaly. CARDIOVASCULAR: S1 and S2 present. No murmurs, rubs, or gallops. PULMONARY: Chest is clear to auscultation, no wheezing or crackles. ABDOMEN: Soft, nontender, nondistended, normoactive bowel sounds. No palpable organomegaly. MUSCULOSKELETAL: No joint swelling or deformity. EXTREMITIES: No cyanosis, clubbing, or pedal edema. NEUROLOGICAL: Gross neurological examination did not reveal any focal deficits. SKIN: Ulcer and cellulitis as mentioned in the interval history - Labs CBC & Chem 7: 02/22/19 07:11 02/22/19 07:11 Labs: Abnormal Lab Results - Last 24 Hours (Table) 02/22/19 02/22/19 Range/Units 07:11 07:11 Plt Count 146 L (150-450) k/uL Sodium 136 L (137-145) mmol/L BUN 24 H (9-20) mg/dL Creatinine 1.57 H (0.66-1.25) mg/dL Microbiology - Last 24 Hours (Table) 02/21/19 15:00 Gram Stain - Preliminary Leg - Left Wound Culture - Preliminary 02/19/19 18:30 Blood Culture - Preliminary Blood No Growth after 48 hours Assessment and Plan Plan: - Left lower extremity cellulitis along with the infected venous ulcer, status post debridement and patient is on daptomycin and and clindamycin now, D appears stated primary is discontinued now - AK I multifactorial and secondary to nonsteroidal anti-inflammatory his diuretics which are being held at this time and patient is on IV fluids which will be continued. -There is possibility of chronic kidney disease secondary to hypertensive nephrosclerosis although I cannot stage C Sharon at -Chronic venous insufficiency - History of chronic nonhealing ulcer in the left lower extremity - History of sleep apnea and CPAP patient will need pharmacologic GI and DVT prophylaxis -Generalized deconditioning PT or OT consultation
[2019-02-22] MEDS: traMADol 50 MG TAB PO PRN (16:09)
[2019-02-22] MEDS: CLINDAMYCIN 900 MG in DEXTROSE 5% IN WATER 50 ML IVPB SCH ×2 (16:09)
[2019-02-22] MEDS: HEPARIN SODIUM,PORCINE 5,000 UNIT/ML 1 ML VIAL SQ SCH (17:25)
[2019-02-22] MEDS: FAMOTIDINE 20 MG TAB PO SCH (22:53)
[2019-02-23] MEDS: diphenhydrAMINE 50 MG/ML 1 ML VIAL IVP PRN (00:07)
[2019-02-23] MEDS: HEPARIN SODIUM,PORCINE 5,000 UNIT/ML 1 ML VIAL SQ SCH ×3 (00:07→16:53)
[2019-02-23] MEDS: ACETAMINOPHEN TAB 325 MG TAB PO SCH ×4 (00:08→18:17)
[2019-02-23] MEDS: CLINDAMYCIN 900 MG in DEXTROSE 5% IN WATER 50 ML IVPB SCH ×6 (01:45→17:59)
[2019-02-23 07:53] LABS: Calcium 8.3 mg/dL (8.4-10.2); Potassium 3.4 mmol/L (3.5-5.1)
[2019-02-23] MEDS: PREGABALIN 75 MG CAP PO SCH ×2 (09:06→20:08)
[2019-02-23] MEDS: CITALOPRAM HYDROBROMIDE 20 MG TAB PO SCH (09:06)
[2019-02-23] MEDS: HYDROcodone/APAP 7.5-325MG 1 EACH TAB PO SCH ×2 (09:06→20:08)
[2019-02-23] MEDS: CLOTRIMAZOLE 1% CREAM 15 GM TUBE TOPICAL SCH ×2 (09:06→20:10)
[2019-02-23] MEDS: FAMOTIDINE 20 MG TAB PO SCH ×2 (09:06→20:08)
[2019-02-23] MEDS: SODIUM CHLORIDE 0.9% 1,000 ML IV SCH ×2 (09:07→15:32)
--- NOTE | 2019-02-23 12:33 | P.PN ---
Subjective Patient is admitted for left anterior garnett ulcer with infection with cellulitis extending up to the left thigh area. Patient is is alert his extending up wound. Vascular surgery valid patient infectious disease evaluate the patient patient is presently on daptomycin and cefepime midthigh. Wound cultures are not available yet. Patient is comparing of severe pain and headache for which I am ordering Fioricet as well as tramadol for pain patient is on [place] presently. 02/23/2019 Patient's redness since the late is improved patient has significant swelling in the left leg will use [place] bandages. Patient will be continued on IV fluids. Patient's serum creatinine is 1.5 baseline creatinine is around the 1 from September of last year Constitutional: Denied any fatigue denied any fever. Cardio vascular: denied any chest pain, palpitations Gastrointestinal denied any nausea vomiting Pulmonary: Denied any shortness of breath cough Neurologic denied any new focal deficits All inpatient medications were reviewed and appropriate changes in these medications as dictated in the interval history and assessment and plan. Objective - Vital Signs Vital signs: Vital Signs Temp 99.4 F 02/23/19 07:00 Pulse 122 H 02/23/19 07:00 Resp 16 02/23/19 07:00 BP 134/72 02/23/19 07:00 Pulse Ox 98 02/23/19 07:00 Intake & Output 02/22/19 02/23/19 02/23/19 18:59 06:59 18:59 Intake Total 500 650 Output Total 200 Balance 500 450 Intake: IV 500 Cefepime 2 gm In Sodium 100 Chloride 0.9% 100 ml @ 200 mls/hr IVPB DAILY [facility] Rx#:[id number] Sodium Chloride 0.9% 1, 400 000 ml @ 100 mls/hr IV . Q10H [facility] Rx#:[id number] Intake, IV Titration 50 Amount Clindamycin 900 mg In 50 Dextrose 5% in Water 50 ml @ 50 mls/hr IVPB Q8HR [facility] Rx#:[id number] Oral 600 Output: Urine 200 Other: Voiding Method Urinal # Voids 3 - Exam PHYSICAL EXAMINATION: GENERAL: The patient is alert and oriented x3, not in any acute distress. Well developed, well nourished. Patient is obese HEENT: Pupils are round and equally reacting to light. EOMI. No scleral icterus. No conjunctival pallor. Normocephalic, atraumatic. No pharyngeal erythema. No thyromegaly. CARDIOVASCULAR: S1 and S2 present. No murmurs, rubs, or gallops. PULMONARY: Chest is clear to auscultation, no wheezing or crackles. ABDOMEN: Soft, nontender, nondistended, normoactive bowel sounds. No palpable organomegaly. MUSCULOSKELETAL: No joint swelling or deformity. EXTREMITIES: No cyanosis, clubbing, or pedal edema. NEUROLOGICAL: Gross neurological examination did not reveal any focal deficits. SKIN: Ulcer and cellulitis as mentioned in the interval history redness did improve and swelling in the left leg did improve - Labs CBC & Chem 7: 02/22/19 07:11 02/23/19 07:28 Labs: Abnormal Lab Results - Last 24 Hours (Table) 02/23/19 Range/Units 07:28 Sodium 135 L (137-145) mmol/L Potassium 3.4 L (3.5-5.1) mmol/L BUN 28 H (9-20) mg/dL Creatinine 1.56 H (0.66-1.25) mg/dL Glucose 117 H (74-99) mg/dL Calcium 8.3 L (8.4-10.2) mg/dL Microbiology - Last 24 Hours (Table) 02/21/19 21:48 Blood Culture - Preliminary Blood No Growth after 24 hours 02/21/19 21:10 Blood Culture - Preliminary Blood No Growth after 24 hours 02/19/19 18:30 Blood Culture - Preliminary Blood No Growth after 72 hours 02/21/19 15:00 Gram Stain - Preliminary Leg - Left Wound Culture - Preliminary Presumptive MRSA Strep pyogenes (grp a) Assessment and Plan Plan: - Left lower extremity cellulitis along with the infected venous ulcer, status post debridement and patient is on daptomycin and and clindamycin now, - AK I multifactorial and secondary to nonsteroidal anti-inflammatory his diuretics which are being held at this time and patient is on IV fluids which will be continued. Baseline creatinine around 1 -There is possibility of chronic kidney disease secondary to hypertensive nephrosclerosis although I cannot stage CKD -Chronic venous insufficiency - History of chronic nonhealing ulcer in the left lower extremity - History of sleep apnea and CPAP patient will need pharmacologic GI and DVT prophylaxis -Generalized deconditioning PT or OT consultation
[2019-02-23 13:25] LABS: T4, Free (Free Thyroxine) 2.03 ng/dL (0.78-2.19)
[2019-02-23] MEDS: BUTALB/APAP/CAFF 50-325-40MG TAB PO PRN ×2 (13:53→18:15)
--- NOTE | 2019-02-23 22:34 | PN ---
PROGRESS NOTE DATE OF SERVICE: 02/23/2019. REASON FOR FOLLOWUP: Left lower extremity venous stasis ulcer secondary to cellulitis. INTERVAL HISTORY: The patient is currently afebrile. The patient left leg swelling and redness seems to have improved compared to yesterday. Denies any chest pain. No shortness of breath or cough. No abdominal pain. No diarrhea. PHYSICAL EXAMINATION: Blood pressure is 108/57, pulse of 85, temperature 97.9. He is 96% on room air. General description is a middle-aged male lying in bed in no distress. Respiratory system: Unlabored breathing. Clear to auscultation anteriorly. Heart S1, S2. Regular rate and rhythm. Abdomen soft, no tenderness. The left leg swelling has slightly decreased. No drainage. LABS: BUN of 22, creatinine 1.56. Wound culture showing MRSA and group B strep. Blood culture has been negative. DIAGNOSTIC IMPRESSION AND PLAN: Patient with left lower extremity cellulitis with venous stasis ulcer. In view of his borderline kidney function, patient is not a candidate for oral Bactrim. We will check his outpatient IV antibiotic coverage for daptomycin for which a midline should be placed. Continue supportive care. MMODL / IJN: [id number] /
[2019-02-24] MEDS: HEPARIN SODIUM,PORCINE 5,000 UNIT/ML 1 ML VIAL SQ SCH ×3 (00:05→18:24)
[2019-02-24] MEDS: CLINDAMYCIN 900 MG in DEXTROSE 5% IN WATER 50 ML IVPB SCH ×6 (00:05→18:23)
[2019-02-24] MEDS: BUTALB/APAP/CAFF 50-325-40MG TAB PO PRN ×2 (00:05→11:31)
[2019-02-24] MEDS: ACETAMINOPHEN TAB 325 MG TAB PO SCH ×4 (00:06→18:28)
[2019-02-24] MEDS: HYDROcodone/APAP 7.5-325MG 1 EACH TAB PO SCH ×2 (07:26→22:08)
[2019-02-24] MEDS: FAMOTIDINE 20 MG TAB PO SCH ×2 (07:27→22:08)
[2019-02-24] MEDS: PREGABALIN 75 MG CAP PO SCH ×2 (07:27→22:08)
[2019-02-24] MEDS: CITALOPRAM HYDROBROMIDE 20 MG TAB PO SCH (07:27)
[2019-02-24] MEDS: SODIUM CHLORIDE 0.9% 1,000 ML IV SCH ×2 (07:28→11:11)
[2019-02-24 08:37] LABS: Calcium 8.4 mg/dL (8.4-10.2); Potassium 3.4 mmol/L (3.5-5.1)
[2019-02-24] MEDS: CLOTRIMAZOLE 1% CREAM 15 GM TUBE TOPICAL SCH ×2 (11:36→22:08)
--- NOTE | 2019-02-24 15:30 | P.PN ---
Subjective Patient is admitted for left anterior garnett ulcer with infection with cellulitis extending up to the left thigh area. Patient is is alert his extending up wound. Vascular surgery valid patient infectious disease evaluate the patient patient is presently on daptomycin and cefepime midthigh. Wound cultures are not available yet. Patient is comparing of severe pain and headache for which I am ordering Fioricet as well as tramadol for pain patient is on [place] presently. 02/23/2019 Patient's redness since the late is improved patient has significant swelling in the left leg will use Carmelo bandages. Patient will be continued on IV fluids. Patient's serum creatinine is 1.5 baseline creatinine is around the 1 from September of last year 02/24/2019 No overnight events patient will be discharged to subacute rehabilitation most probably hopefully tomorrow IV fluids will be discontinued there is no in Coumadin creatinine patient appears to chronic kidney disease stage III Constitutional: Denied any fatigue denied any fever. Cardio vascular: denied any chest pain, palpitations Gastrointestinal denied any nausea vomiting Pulmonary: Denied any shortness of breath cough Neurologic denied any new focal deficits All inpatient medications were reviewed and appropriate changes in these medications as dictated in the interval history and assessment and plan. Objective - Vital Signs Vital signs: Vital Signs Temp 98.7 F 02/24/19 14:49 Pulse 142 H 02/24/19 14:49 Resp 14 02/24/19 14:49 BP 108/60 02/24/19 14:49 Pulse Ox 98 02/24/19 14:49 Intake & Output 02/23/19 02/24/19 02/24/19 18:59 06:59 18:59 Intake Total 670 1200 750 Output Total 400 700 Balance 670 800 50 Intake: IV 600 Sodium Chloride 0.9% 1, 600 000 ml @ 75 mls/hr IV . [id number] SRAVANI Rx#:[id number] Intake, IV Titration 550 50 750 Amount Clindamycin 900 mg In 50 50 50 Dextrose 5% in Water 50 ml @ 50 mls/hr IVPB Q8HR SRAVANI Rx#:[id number] DAPTOmycin 600 mg In 100 Sodium Chloride 0.9% 50 ml @ 100 mls/hr IVPB Q24H SRAVANI Rx#:[id number] Sodium Chloride 0.9% 1, 500 600 000 ml @ 75 mls/hr IV . [id number] SRAVANI Rx#:[id number] Oral 120 550 Output: Urine 400 700 Other: Voiding Method Urinal # Voids 4 - Exam PHYSICAL EXAMINATION: GENERAL: The patient is alert and oriented x3, not in any acute distress. Well developed, well nourished. Patient is obese HEENT: Pupils are round and equally reacting to light. EOMI. No scleral icterus. No conjunctival pallor. Normocephalic, atraumatic. No pharyngeal erythema. No thyromegaly. CARDIOVASCULAR: S1 and S2 present. No murmurs, rubs, or gallops. PULMONARY: Chest is clear to auscultation, no wheezing or crackles. ABDOMEN: Soft, nontender, nondistended, normoactive bowel sounds. No palpable organomegaly. MUSCULOSKELETAL: No joint swelling or deformity. EXTREMITIES: No cyanosis, clubbing, or pedal edema. NEUROLOGICAL: Gross neurological examination did not reveal any focal deficits. SKIN: Ulcer and cellulitis as mentioned in the interval history redness did improve compared to yesterday - Labs CBC & Chem 7: 02/22/19 07:11 02/24/19 07:44 Labs: Abnormal Lab Results - Last 24 Hours (Table) 02/24/19 Range/Units 07:44 Sodium 136 L (137-145) mmol/L Potassium 3.4 L (3.5-5.1) mmol/L BUN 26 H (9-20) mg/dL Creatinine 1.56 H (0.66-1.25) mg/dL Glucose 115 H (74-99) mg/dL Microbiology - Last 24 Hours (Table) 02/21/19 21:48 Blood Culture - Preliminary Blood No Growth after 48 hours 02/21/19 15:00 Gram Stain - Final Leg - Left Wound Culture - Final Methicillin resist S. aureus Strep pyogenes (grp a) 02/21/19 21:10 Blood Culture - Preliminary Blood No Growth after 48 hours 02/19/19 18:30 Blood Culture - Preliminary Blood No Growth after 96 hours Assessment and Plan Plan: - Left lower extremity cellulitis along with the infected venous ulcer, status post debridement and patient is on daptomycin and and clindamycin now, - AK I multifactorial and secondary to nonsteroidal anti-inflammatory his diuretics which are being held at this time and patient is on IV fluids which will be continued. Baseline creatinine around 1 chronic kidney disease stage III -Chronic venous insufficiency - History of chronic nonhealing ulcer in the left lower extremity - History of sleep apnea and CPAP patient will need pharmacologic GI and DVT prophylaxis -Generalized deconditioning PT or OT evaluated the patient patient will be disch arged to subacute rehabilitation awaiting insurance authorization.
--- NOTE | 2019-02-24 23:26 | PN ---
PROGRESS NOTE DATE OF SERVICE: 02/24/2019 REASON FOR FOLLOWUP: Left leg venostasis ulcer with cellulitis. INTERVAL HISTORY: The patient is currently afebrile. The patient has been breathing comfortably. Denies having any chest pain or any cough. No abdominal pain. The left leg swelling has improved. PHYSICAL EXAMINATION: Blood pressure 114/69 with a pulse of 103, temperature 98.1, he is 97% on room air. General description is a middle-aged male, lying in bed in no distress. RESPIRATORY SYSTEM: Unlabored breathing. Clear to auscultation anteriorly. HEART: S1, S2. Regular rate and rhythm. ABDOMEN: Soft, nontender. Left leg swelling and redness has decreased, no drainage. LABS: BUN of 26, creatinine 1.56. DIAGNOSTIC IMPRESSION AND PLAN: Patient with left leg venostasis ulcer significant with culture positive group B strep and methicillin-resistant Staphylococcus aureus. Patient currently responding to the daptomycin and will continue for now. Patient did get . Will continue on vancomycin at current dose for another 10 days. Local wound care with Santyl. Continue supportive care. MMODL / IJN: [id number] /
[2019-02-25] MEDS: CLINDAMYCIN 900 MG in DEXTROSE 5% IN WATER 50 ML IVPB SCH ×6 (00:36→19:19)
[2019-02-25] MEDS: HEPARIN SODIUM,PORCINE 5,000 UNIT/ML 1 ML VIAL SQ SCH ×3 (00:36→15:32)
[2019-02-25] MEDS: BUTALB/APAP/CAFF 50-325-40MG TAB PO PRN ×2 (02:40→20:39)
[2019-02-25] MEDS: ACETAMINOPHEN TAB 325 MG TAB PO SCH ×4 (06:38→18:07)
[2019-02-25 08:31] LABS: Calcium 8.1 mg/dL (8.4-10.2); Potassium 3.4 mmol/L (3.5-5.1)
[2019-02-25] MEDS: PREGABALIN 75 MG CAP PO SCH ×2 (09:45→20:39)
[2019-02-25] MEDS: HYDROcodone/APAP 7.5-325MG 1 EACH TAB PO SCH ×2 (09:45→20:39)
[2019-02-25] MEDS: CITALOPRAM HYDROBROMIDE 20 MG TAB PO SCH (09:46)
[2019-02-25] MEDS: FAMOTIDINE 20 MG TAB PO SCH ×2 (09:46→20:39)
[2019-02-25] MEDS: CLOTRIMAZOLE 1% CREAM 15 GM TUBE TOPICAL SCH ×2 (09:46→20:40)
--- NOTE | 2019-02-25 12:33 | P.DS ---
Providers Date of admission: 02/20/19 14:13 Attending physician: Nancy Thacker Consults: 02/20/19 12:14 Consult Physician Urgent Consulting Provider: Nabor Nagy Consult Reason/Comments: cellulitis Do you want consulting provider notified?: Yes 02/20/19 17:27 Consult Physician Routine Consulting Provider: Mike Ho Consult Reason/Comments: left leg wound for debridment and deep cultures Do you want consulting provider notified?: Yes [facility] Course: Patient is admitted for left anterior garnett ulcer with infection with cellulitis extending up to the left thigh area. Patient is is alert his extending up wound. Vascular surgery valid patient infectious disease evaluate the patient patient is presently on daptomycin and cefepime midthigh. Wound cultures are not available yet. Patient is comparing of severe pain and headache for which I am ordering Fioricet as well as tramadol for pain patient is on [place] presently. 02/23/2019 Patient's redness since the late is improved patient has significant swelling in the left leg will use Carmelo bandages. Patient will be continued on IV fluids. Patient's serum creatinine is 1.5 baseline creatinine is around the 1 from September of last year 02/24/2019 No overnight events patient will be discharged to subacute rehabilitation most probably hopefully tomorrow IV fluids will be discontinued there is no in Coumadin creatinine patient appears to chronic kidney disease stage III 02/25/2019 Patient is clinically doing well will be discharged today on 10 days of daptomycin to subacute rehabilitation. Patient's creatinine remained stable appears to have some chronic renal dysfunction stage II chronic kidney disease, avoid nonsteroidal anti-inflammatory medications. Patient will be discharged on tramadol and [place] for pain to subacute rehab. PHYSICAL EXAMINATION: GENERAL: The patient is alert and oriented x3, not in any acute distress. Well developed, well nourished. Patient is obese HEENT: Pupils are round and equally reacting to light. EOMI. No scleral icterus. No conjunctival pallor. Normocephalic, atraumatic. No pharyngeal erythema. No thyromegaly. CARDIOVASCULAR: S1 and S2 present. No murmurs, rubs, or gallops. PULMONARY: Chest is clear to auscultation, no wheezing or crackles. ABDOMEN: Soft, nontender, nondistended, normoactive bowel sounds. No palpable organomegaly. MUSCULOSKELETAL: No joint swelling or deformity. EXTREMITIES: No cyanosis, clubbing, or pedal edema. NEUROLOGICAL: Gross neurological examination did not reveal any focal deficits. SKIN: Ulcer and cellulitis as mentioned in the interval history redness did improve compared to yesterday Assessment and Plan Plan: - Left lower extremity cellulitis along with the infected venous ulcer, status post debridement and patient will be discharged on daptomycin - AK I multifactorial and secondary to nonsteroidal anti-inflammatory patient may have CKD 3 -Chronic venous insufficiency - History of chronic nonhealing ulcer in the left lower extremity - History of sleep apnea and CPAP Patient Condition at Discharge: Serious Plan - Discharge Summary Discharge Rx Participant: No New Discharge Prescriptions: New traMADol HCl [Ultram] 50 mg PO QID PRN #14 tab PRN Reason: Pain/Discomfort DAPTOmycin [Cubicin] 600 mg IV DAILY #10 bag Continue Furosemide [Lasix] 20 mg PO BID Citalopram Hydrobromide [CeleXA] 40 mg PO DAILY Testosterone Cypionate [Depo-Testosterone] 100 mg IM WEEKLY Pregabalin [Lyrica] 75 mg PO BID Ciclopirox Olamine [Ciclopirox 0.77% Topical Susp.] 1 applic TOPICAL BID clonazePAM [KlonoPIN] 1 - 2 tab PO DAILY PRN #7 tablet PRN Reason: Severe Anxiety Changed HYDROcodone/APAP 7.5-325MG [[place] 7.5-325] 1 tab PO TID PRN #12 tab PRN Reason: Pain Discontinued Ibuprofen [Motrin] 800 mg PO Q8H Discharge Medication List Citalopram Hydrobromide [CeleXA] 40 mg PO DAILY 10/01/18 [History] Furosemide [Lasix] 20 mg PO BID 10/01/18 [History] Testosterone Cypionate [Depo-Testosterone] 100 mg IM WEEKLY 10/01/18 [History] Ciclopirox Olamine [Ciclopirox 0.77% Topical Susp.] 1 applic TOPICAL BID 02/19/19 [History] Pregabalin [Lyrica] 75 mg PO BID 02/19/19 [History] DAPTOmycin [Cubicin] 600 mg IV DAILY #10 bag 02/25/19 [Rx] HYDROcodone/APAP 7.5-325MG [[place] 7.5-325] 1 tab PO TID PRN #12 tab 02/25/19 [Rx] clonazePAM [KlonoPIN] 1 - 2 tab PO DAILY PRN #7 tablet 02/25/19 [Rx] traMADol HCl [Ultram] 50 mg PO QID PRN #14 tab 02/25/19 [Rx] Follow up Appointment(s)/Referral(s): [facility], [NON-STAFF] - Jd Peng DO [Primary Care Provider] - 02/27/19 10:20 am (with Evi) Nabor Nagy MD [STAFF PHYSICIAN] - 1 Week Patient Instructions/Handouts: Cellulitis (ED) Activity/Diet/Wound Care/Special Instructions: Patient to adhere to previously discussed treatment plan and will take medication(s) as directed. Patient to follow up with PCP in 1-2 days. Patient to return to ED if symptoms do not improve. Please take medications as directed. Please return to ER if condition worsens in any way. Please follow-up with primary care provider as well as wound clinic in 1-2 days. Discharge Disposition: TRANSFER TO SNF/ECF
--- NOTE | 2019-02-25 15:22 | PN ---
PROGRESS NOTE DATE OF SERVICE: 02/25/2019. REASON FOR FOLLOWUP: Left leg pain and also secondary cellulitis with MRSA. INTERVAL HISTORY: The patient is currently afebrile. Patient has been breathing comfortably. Denies having any chest pain or cough. No abdominal pain or any worsening pain to the left leg area. PHYSICAL EXAMINATION: Blood pressure 120/70 with a pulse of 110, temperature 97.9, he is 97% on room air. General description is a middle-aged male, lying in bed in no distress. RESPIRATORY SYSTEM: Unlabored breathing, clear to auscultation anteriorly. HEART: S1, S2. Regular rate and rhythm. ABDOMEN: Soft. Left leg swelling has decreased. LABS: BUN of 26, creatinine 1.46. DIAGNOSTIC IMPRESSION AND PLAN: Patient with left lower extremity cellulitis. The patient at this time is to continue with daptomycin 600 daily for another 10 days. Local wound care with Santyl and close outpatient followup. Continue supportive care. MMODL / IJN: [id number] /
[2019-02-25] MEDS: traMADol 50 MG TAB PO PRN ×2 (15:33→22:36)
[2019-02-25] MEDS: diphenhydrAMINE 25 MG CAP PO PRN (22:35)
[2019-02-26] MEDS: HEPARIN SODIUM,PORCINE 5,000 UNIT/ML 1 ML VIAL SQ SCH ×2 (00:19→07:06)
[2019-02-26] MEDS: CLINDAMYCIN 900 MG in DEXTROSE 5% IN WATER 50 ML IVPB SCH ×8 (00:19→23:46)
[2019-02-26] MEDS: ACETAMINOPHEN TAB 325 MG TAB PO SCH ×5 (00:28→23:47)
[2019-02-26] MEDS: traMADol 50 MG TAB PO PRN ×2 (04:48→13:53)
[2019-02-26] MEDS: CITALOPRAM HYDROBROMIDE 20 MG TAB PO SCH (07:05)
[2019-02-26] MEDS: PREGABALIN 75 MG CAP PO SCH ×2 (07:06→21:05)
[2019-02-26] MEDS: CLOTRIMAZOLE 1% CREAM 15 GM TUBE TOPICAL SCH ×2 (07:06→23:48)
[2019-02-26] MEDS: FAMOTIDINE 20 MG TAB PO SCH ×2 (07:06→21:05)
[2019-02-26] MEDS: clonazePAM 0.5 MG TAB PO PRN (07:55)
[2019-02-26] MEDS: HYDROcodone/APAP 7.5-325MG 1 EACH TAB PO SCH ×2 (07:56→21:01)
[2019-02-26] MEDS ORDERED: SODIUM CHLORIDE 0.9% 500 ML 250 ML IV ONE (08:34)
[2019-02-26 08:47] LABS: Glucose,Whole Blood 143 mg/dL (75-99)
[2019-02-26] MEDS ORDERED: DEXTROSE 5% IN WATER 100 ML with AMIODARONE 150 MG IV ONE (09:20)
[2019-02-26] MEDS ORDERED: HEPARIN SODIUM,PORCINE 5,000 UNIT/ML 1 ML VIAL IV ONE (09:21)
[2019-02-26] MEDS ORDERED: AMIODARONE 360 MG in DEXTROSE 5% IN WATER 200 ML IV ONE ×2 (09:21)
[2019-02-26 09:23] LABS: Calcium 7.9 mg/dL (8.4-10.2); Magnesium 1.8 mg/dL (1.6-2.3); Potassium 3.5 mmol/L (3.5-5.1)
[2019-02-26 09:31] LABS: HGB 13.1 gm/dL (13.0-17.5); MCH 29.2 pg (25.0-35.0); MCHC 32.9 g/dL (31.0-37.0); MCV 88.7 fL (80.0-100.0); WBC 12.8 k/uL (3.8-10.6)
[2019-02-26 09:34] LABS: Platelet Count 305 k/uL (150-450)
[2019-02-26] MEDS: HEPARIN SOD,PORK IN 0.45% NACL 25,000 UNIT in 0.45% NACL 1 250ML.BAG IV SCH (09:57)
--- NOTE | 2019-02-26 10:06 | P.CRDCN ---
History of Present Illness Consult date: 02/26/19 Requesting physician: Fredrick E Sheet Consult reason: atrial flutter Chief complaint: Left leg swelling and redness History of present illness: This is a 48-year-old gentleman with history of sleep apnea, occasional EtOH use on the weekends, no hypertension, no diabetes, no hyperlipidemia, who initially presented to the hospital because of redness swelling and discomfort in his left lower extremity. According to the patient, he had hit his leg on something, had an open area which developed an ulcer, since then he's been noticing significant swelling, and worsening redness all the way up into his thigh area. Patient also states he's been experiencing some symptoms of dizziness and blurring of vision, he also notices at times it feels as though his heart racing fast and like he's having an anxiety attack. Patient states he was feeling feverish at home although he did not take his temperature there, was experiencing chest heaviness with this anxious feeling and came to the emergency room for all of the above reasons. Patient had a venous duplex study done of bilateral lower extremities which was negative for DVT. He had been seen in consultation by ID and initiated on antibiotics. This morning, and 18 was called and the patient because he became extremely short of breath, his heart rate was in the 130s to 150s range. An EKG was performed which showed atrial flutter with a rapid ventricular response. She did see it feels some heaviness in his chest, and felt as though his heart was pounding fast. He was seen and evaluated on the medical surgical unit, blood pressure was 94/64 with a heart rate of 150, afebrile, 96% on 2 L of oxygen. White blood cell count 12.8, hemoglobin 13.1, platelet count 305. Sodium 136, potassium 3.5, BUN 25, creatinine 1.2. Magnesium 1.8. I did order a TSH level which came back at 2.399 with free T4 2.03. Patient was quite short of breath at the time of my examination. Stat echocardiogram with Doppler study has been requested. We'll start the patient on IV amiodarone, IV heparin, and transferred to cardiac unit. Past Medical History Past Medical History: Skin Disorder, Sleep Apnea/CPAP/BIPAP, Vascular Disorder Additional Past Medical History / Comment(s): has cpap, wound cristiano legs- goes to wound center History of Any Multi-Drug Resistant Organisms: MRSA Date of last positivie culture/infection: 02/21/19 MDRO Source:: left leg Past Surgical History: Tonsillectomy Additional Past Surgical History / Comment(s): radio ablations cristiano legs, deviated septum repair Past Anesthesia/Blood Transfusion Reactions: Previous Problems w/ Anesthesia, Family History of Problems w/ Anesthesia Additional Past Anesthesia/Blood Transfusion Reaction / Comment(s): difficult intubation d/t small airway per pt. mother also difficult airway Past Psychological History: Anxiety Smoking Status: Never smoker Past Alcohol Use History: Occasional Past Drug Use History: None Reported - Past Family History Mother Family Medical History: Asthma Father Family Medical History: Dementia, Hypertension Medications and Allergies Home Medications Medication Instructions Recorded Confirmed Type Citalopram Hydrobromide [CeleXA] 40 mg PO DAILY 10/01/18 02/19/19 History Furosemide [Lasix] 20 mg PO BID 10/01/18 02/19/19 History Testosterone Cypionate 100 mg IM WEEKLY 10/01/18 02/19/19 History [Depo-Testosterone] Ciclopirox Olamine [Ciclopirox 1 applic TOPICAL BID 02/19/19 02/19/19 History 0.77% Topical Susp.] DAPTOmycin [Cubicin] 600 mg IV DAILY #10 bag 02/25/19 Rx HYDROcodone/APAP 7.5-325MG [[place] 1 tab PO TID PRN #12 tab 02/25/19 Rx 7.5-325] Pregabalin [Lyrica] 75 mg PO BID #14 cap 02/25/19 Rx clonazePAM [KlonoPIN] 0.5 - 1 mg PO DAILY PRN #7 tab 02/25/19 Rx traMADol HCl [Ultram] 50 mg PO QID PRN #14 tab 02/25/19 Rx Allergies Allergy/AdvReac Type Severity Reaction Status Date / Time acetaminophen [From Lortab] Allergy Itching Verified 02/19/19 16:49 hydrocodone [From Lortab] Allergy Itching Verified 02/19/19 18:16 vancomycin Allergy Itching Verified 02/21/19 02:03 Physical Exam Vitals: Vital Signs Temp Pulse Pulse Pulse Pulse Resp BP 02/26/19 09:42 147 H 20 02/26/19 08:51 145 H 02/26/19 08:37 146 H 20 02/26/19 07:59 141 H 02/26/19 07:58 98.4 F 120 H 145 H 16 02/26/19 07:52 122 H 120 H 02/26/19 02:16 98.4 F 104 H 20 94/63 02/25/19 19:10 98.2 F 85 15 02/25/19 16:00 15 02/25/19 14:56 97.4 F L 96 15 BP Pulse Ox 02/26/19 09:42 93/66 02/26/19 08:51 114/79 02/26/19 08:37 94/64 96 02/26/19 07:59 02/26/19 07:58 126/80 96 02/26/19 07:52 02/26/19 02:16 94 L 02/25/19 19:10 124/67 98 02/25/19 16:00 02/25/19 14:56 109/79 97 Intake and Output 02/25/19 02/26/19 02/26/19 22:59 06:59 14:59 Intake Total 236 Output Total 300 1000 800 Balance -300 -1000 -564 Intake: Oral 236 Output: Urine 300 1000 800 Other: Voiding Method Urinal PHYSICAL EXAMINATION: GENERAL: 48-year-old gentleman in mild respiratory distress at the time of my examination HEENT: Head is atraumatic, normocephalic. Pupils equal, round. Sclera anicteric. Conjunctiva are clear. Mucous membranes of the mouth are moist. Neck is supple. There is elevated jugular venous pressure. No carotid bruit is heard. HEART EXAMINATION: Heart S1 and S2 tachycardic CHEST EXAMINATION: Lungs are clear with diminished air entry to bilateral bases ABDOMEN: Soft, obese, nontender. Bowel sounds are heard. No organomegaly noted. EXTREMITIES:[ 2+ peripheral pulses with 1-2+ evidence of peripheral edema , left anterior leg has a wound with a necrotic base, significant redness NEUROLOGIC patient is awake, alert and oriented 3 . . Results 02/26/19 09:00 02/26/19 08:37 CBC 02/26/19 Range/Units 09:00 WBC 12.8 H (3.8-10.6) k/uL RBC 4.50 (4.30-5.90) m/uL Hgb 13.1 (13.0-17.5) gm/dL Hct 40.0 (39.0-53.0) % Plt Count 305 D (150-450) k/uL Comprehensive Metabolic Panel 02/26/19 Range/Units 08:37 Sodium 136 L (137-145) mmol/L Potassium 3.5 (3.5-5.1) mmol/L Chloride 100 (98-107) mmol/L Carbon Dioxide 27 (22-30) mmol/L BUN 25 H (9-20) mg/dL Creatinine 1.22 (0.66-1.25) mg/dL Glucose 141 H (74-99) mg/dL Calcium 7.9 L (8.4-10.2) mg/dL Current Medications Generic Name Dose Route Start Last Admin Trade Name Freq PRN Reason Stop Dose Admin Acetaminophen 650 mg 02/20/19 00:00 02/26/19 06:54 Tylenol Tab PO Not Given Q6HR SRAVANI Acetaminophen/Butalbital/Caffeine 1 each 02/22/19 13:08 02/25/19 20:39 Fioricet 50-325-40 PO 1 each Q4HR PRN Administration Headache Hydrocodone Bitart/Acetaminophen 1 each 02/20/19 21:00 02/26/19 07:56 [place] 7.5-325 PO 1 each BID SRAVANI Administration Al Hydroxide/Mg Hydroxide 30 ml 02/20/19 09:52 02/21/19 20:14 Maalox PO 30 ml Q4HR PRN Administration GI Upset Citalopram Hydrobromide 40 mg 02/21/19 09:00 02/26/19 07:05 Celexa PO 40 mg DAILY SRAVANI Administration Clonazepam 0.5 - 1 mg 02/20/19 12:15 02/26/19 07:55 Klonopin PO 1 mg DAILY PRN Administration Moderate-Severe Anxiety Clotrimazole 1 applic 02/20/19 21:00 02/26/19 07:06 Lotrimin Cream TOPICAL Not Given BID SRAVANI Diphenhydramine HCl 25 mg 02/25/19 11:07 02/25/19 22:35 Benadryl PO 25 mg BID PRN Administration Allergy Symptoms Famotidine 20 mg 02/22/19 21:00 02/26/19 07:06 Pepcid PO 20 mg BID SRAVANI Administration Heparin Sodium (Porcine) 0 unit 02/26/19 09:21 Heparin IV PER PROTOCOL PRN Low PTT Protocol Daptomycin 600 mg/ Sodium 50 mls @ 100 mls/hr 02/21/19 16:00 02/25/19 18:07 Chloride IVPB 100 mls/hr Q24H SRAVANI Administration Protocol Clindamycin Phosphate 900 mg/ 56 mls @ 50 mls/hr 02/22/19 16:00 02/26/19 07:05 Dextrose/Water IVPB 50 mls/hr Q8HR SRAVANI Administration Amiodarone HCl 360 mg/ 200 mls @ 33.333 mls/hr 02/26/19 09:21 02/26/19 09:49 Dextrose/Water IV 02/26/19 15:20 1 mg/min .Q6H ONE 33.333 mls/hr Administration Protocol 1 MG/MIN Amiodarone HCl 300 mg/ 250 mls @ 25 mls/hr 02/26/19 09:30 Dextrose/Water IV 02/27/19 03:29 .Q10H SRAVANI Protocol 0.5 MG/MIN Heparin Sodium/Sodium Chloride 250 mls @ 9.999 mls/hr 02/26/19 09:30 25,000 unit/ Sodium Chloride IV .Q24H SRAVANI Protocol 6.804 UNITS/KG/HR Naloxone HCl 0.2 mg 02/19/19 20:57 Narcan IV Q2M PRN Opioid Reversal Pregabalin 75 mg 02/20/19 21:00 02/26/19 07:06 Lyrica PO 75 mg BID SRAVANI Administration Tramadol HCl 50 mg 02/22/19 13:09 02/26/19 04:48 Ultram PO 50 mg QID PRN Administration Pain/Discomfort Intake and Output 02/25/19 02/26/19 02/26/19 22:59 06:59 14:59 Intake Total 236 Output Total 300 1000 800 Balance -300 -1000 -564 Intake: Oral 236 Output: Urine 300 1000 800 Other: Voiding Method Urinal 02/26/19 09:00 02/26/19 08:37 EKG Interpretations (text) EKG shows atrial flutter with a rapid ventricular response Assessment and Plan Plan: Assessment and plan #1 left lower extremity cellulitis #2 atrial flutter, typical, rapid ventricular response, TSH 0.399 #3 history of sleep apnea #4 history of venous insufficiency #4 hypokalemia #5 renal insufficiency, resolved Plan We will obtain a stat echocardiogram with Doppler study, transfer the patient to the cardiac unit. Start the patient on IV heparin and IV amiodarone. Replace potassium and magnesium. Further recommendations to follow. DNP note has been reviewed, I agree with a documented findings and plan of care. Patient was seen and examined.
[2019-02-26 10:21] LABS: Partial Thromboplastin Time 27.4 sec (22.0-30.0); Prothrombin Time 11.1 sec (9.0-12.0)
--- NOTE | 2019-02-26 10:39 | ECHOF ---
Referral Reason:tachycardia MEASUREMENTS -------- HEIGHT: 182.9 cm WEIGHT: 147.0 kg BP: 94/64 RVIDd: 2.9 cm (< 3.3) IVSd: 1.4 cm (0.6 - 1.1) LVIDd: 4.8 cm (3.9 - 5.3) LVPWd: 1.6 cm (0.6 - 1.1) IVSs: 1.8 cm LVIDs: 3.5 cm LVPWs: 2.1 cm Ao Diam: 3.4 cm (2.0 - 3.7) AV Cusp: 2.0 cm (1.5 - 2.6) LA Diam: 4.0 cm (2.7 - 3.8) RAP: 5.00 mmHg RVSP: 28.25 mmHg FINDINGS -------- The rhythm appears to be atrial flutter. This was a technically difficult study with suboptimal views. The left ventricular size is normal. There is moderate concentric left ventricular hypertrophy. O verall left ventricular systolic function is low-normal with, an EF between 50 - 55 %. The right ventricle is normal in size. The left atrial size is normal. The right atrial size is normal. Lumason used The aortic valve is trileaflet and appears structurally normal. There is trace mitral regurgitation. Trace tricuspid regurgitation present. The right ventricular systolic pressure, as measured by Dopp ler, is 28.25mmHg. There is no pulmonic regurgitation present. The aortic root size is normal. IVC Not well visulized. There is no pericardial effusion. CONCLUSIONS -------- 1. The rhythm appears to be atrial flutter. 2. This was a technically difficult study with suboptimal views. 3. The left ventricular size is normal. 4. There is moderate concentric left ventricular hypertrophy. 5. Overall left ventricular systolic function is low-normal with, an EF between 50 - 55 %. 6. The right ventricle is normal in size. 7. The left atrial size is normal. 8. The right atrial size is normal. 9. Lumason used 10. The aortic valve is trileaflet and appears structurally normal. 11. There is trace mitral regurgitation. 12. Trace tricuspid regurgitation present. 13. The right ventricular systolic pressure, as measured by Doppler, is 28.25mmHg. 14. There is no pulmonic regurgitation present. 15. The aortic root size is normal. 16. IVC Not well visulized. 17. There is no pericardial effusion. COUNSELING AIDE: Anny Hughes RDCS
[2019-02-26] MEDS: AMIODARONE 300 MG in DEXTROSE 5% IN WATER 250 ML IV SCH ×4 (10:47→16:28)
[2019-02-26] MEDS: MAGNESIUM SULFATE-D5W PMX 1 GM in DEXTROSE/WATER 1 100ML.BAG IVPB SCH ×2 (11:45→13:48)
[2019-02-26] MEDS: POTASSIUM CHLORIDE ER 20 MEQ TAB.ER PO SCH ×3 (12:11→17:06)
[2019-02-26 12:30] LABS: Glucose,Whole Blood 105 mg/dL (75-99)
[2019-02-26] MEDS: HEPARIN SODIUM,PORCINE 5,000 UNIT/ML 1 ML VIAL IV PRN (17:13)
--- NOTE | 2019-02-26 23:47 | PN ---
PROGRESS NOTE DATE OF SERVICE: 02/26/2019 REASON FOR FOLLOWUP: Left lower extremity venostasis ulcer with secondary cellulitis. INTERVAL HISTORY: The patient for which the patient will be transferred . The patient denies having any chest pain, shortness of breath. No nausea, no vomiting. No abdominal pain or worsening pain in the left leg area. PHYSICAL EXAMINATION: Blood pressure 121/52 with a pulse of 89, temperature 97.8. He is 97% on room air. General description is a middle-aged male lying in bed in no distress. RESPIRATORY SYSTEM: Unlabored breathing. Clear to auscultation. HEART: S1, S2. Regular rate and rhythm. ABDOMEN: Soft. Left leg swelling and redness have improved. LABS: Hemoglobin is 13.1, white count 12.8. DIAGNOSTIC IMPRESSION AND PLAN: Patient with acute left lower extremity venostasis ulcer and secondary cellulitis; culture positive for methicillin-resistant Staphylococcus aeruginosa and streptococcus. The patient is currently on daptomycin and clindamycin. To continue with daptomycin in the outpatient setting. Plan is to finish a course of therapy. Continue with supportive care. MMODL / IJN: [id number] /
--- NOTE | 2019-02-26 23:48 | P.PN ---
Subjective Progress Note Date: 02/26/19 Principal diagnosis: Left lower extremities cellulitis New onset atrial flutter Patient is admitted for left anterior garnett ulcer with infection with cellulitis extending up to the left thigh area. Patient is is alert his extending up wound. Vascular surgery valid patient infectious disease evaluate the patient patient is presently on daptomycin and cefepime midthigh. Wound cultures are not available yet. Patient is comparing of severe pain and headache for which I am ordering Fioricet as well as tramadol for pain patient is on [place] presently. 02/23/2019 Patient's redness since the late is improved patient has significant swelling in the left leg will use Carmelo bandages. Patient will be continued on IV fluids. Patient's serum creatinine is 1.5 baseline creatinine is around the 1 from September of last year 02/24/2019 No overnight events patient will be discharged to subacute rehabilitation most probably hopefully tomorrow IV fluids will be discontinued there is no in Coumadin creatinine patient appears to chronic kidney disease stage III 02/26/2019 Patient was transferred to telemetry unit due to new onset atrial flutter. Currently patient is on amiodarone drip and heparin drip. Cardiology is following. Patient otherwise denied any complaints of chest pain or shortness of breath currently. Patient felt like panic attack yesterday which he gets on and off while at home as well. No commerce of headache or dizziness or lightheadedness. Cardiology is following. Left lower extremity redness is improving. Still having segments swelling. Patient is being continued on IV antibiotics. No fever no chills. No nausea vomiting or abdominal pain. No diarrhea. Current medications reviewed. Objective - Vital Signs Vital signs: Vital Signs Temp 98.4 F 02/26/19 07:58 Pulse 114 H 02/26/19 12:00 Resp 20 02/26/19 12:00 BP 103/44 02/26/19 12:00 Pulse Ox 94 L 02/26/19 12:00 Intake & Output 02/25/19 02/26/19 02/26/19 18:59 06:59 18:59 Intake Total 237 236 Output Total 1100 1300 800 Balance -863 -1300 -564 Weight 146.964 kg Intake: Oral 237 236 Output: Urine 1100 1300 800 Other: Voiding Method Urinal Urinal # Voids 1 - Exam PHYSICAL EXAMINATION: GENERAL: The patient is alert and oriented x3, not in any acute distress. Well developed, well nourished. Patient is obese HEENT: Pupils are round and equally reacting to light. EOMI. No scleral icterus. No conjunctival pallor. Normocephalic, atraumatic. No pharyngeal erythema. No thyromegaly. CARDIOVASCULAR: S1 and S2 present. No murmurs, rubs, or gallops. PULMONARY: Chest is clear to auscultation, no wheezing or crackles. ABDOMEN: Soft, nontender, nondistended, normoactive bowel sounds. No palpable organomegaly. MUSCULOSKELETAL: No joint swelling or deformity. EXTREMITIES: No cyanosis, clubbing, or pedal edema. NEUROLOGICAL: Gross neurological examination did not reveal any focal deficits. SKIN: Ulcer and cellulitis as mentioned in the interval history redness did improve compared to yesterday - Labs CBC & Chem 7: 02/26/19 09:00 02/26/19 08:37 Labs: Abnormal Lab Results - Last 24 Hours (Table) 02/26/19 02/26/19 02/26/19 Range/Units 08:35 08:37 09:00 WBC 12.8 H (3.8-10.6) k/uL Sodium 136 L (137-145) mmol/L BUN 25 H (9-20) mg/dL Glucose 141 H (74-99) mg/dL POC Glucose (mg/dL) 143 H (75-99) mg/dL Calcium 7.9 L (8.4-10.2) mg/dL 02/26/19 Range/Units 12:27 WBC (3.8-10.6) k/uL Sodium (137-145) mmol/L BUN (9-20) mg/dL Glucose (74-99) mg/dL POC Glucose (mg/dL) 105 H (75-99) mg/dL Calcium (8.4-10.2) mg/dL Microbiology - Last 24 Hours (Table) 02/21/19 21:48 Blood Culture - Preliminary Blood No Growth after 96 hours 02/21/19 21:10 Blood Culture - Preliminary Blood No Growth after 96 hours 02/19/19 18:30 Blood Culture - Final Blood No Growth after 144 hours Assessment and Plan Assessment: -New onset atrial flutter with rapid ventricular rate. Currently on amiodarone and heparin drips. Follow-up 2-D echocardiogram. - Left lower extremity cellulitis along with the infected venous ulcer, status post debridement and patient is on daptomycin and and clindamycin now, - AK I multifactorial and secondary to nonsteroidal anti-inflammatory his diuretics which are being held at this time and patient is on IV fluids which will be continued. 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 Time with Patient: Greater than 30
[2019-02-27] MEDS: HEPARIN SOD,PORK IN 0.45% NACL 25,000 UNIT in 0.45% NACL 1 250ML.BAG IV SCH (04:34)
[2019-02-27] MEDS: ACETAMINOPHEN TAB 325 MG TAB PO SCH ×4 (06:00→23:34)
[2019-02-27 07:19] LABS: Basophils % (A) 0 %; Eosinophils # (A) 0.1 k/uL (0-0.7); Eosinophils % (A) 1 %; HCT 38.5 % (39.0-53.0); HGB 12.5 gm/dL (13.0-17.5); Lymphocytes # (A) 1.2 k/uL (1.0-4.8); Lymphocytes % (A) 14 %; MCH 29.6 pg (25.0-35.0); MCHC 32.5 g/dL (31.0-37.0); MCV 91.2 fL (80.0-100.0); Mean Platelet Volume 8.5; Monocytes # (A) 0.3 k/uL (0-1.0); Monocytes % (A) 3 %; Neutrophils # (A) 6.7 k/uL (1.3-7.7); Neutrophils % (A) 79 %; Platelet Count 299 k/uL (150-450); RBC 4.22 m/uL (4.30-5.90); RDW 14.7 % (11.5-15.5); WBC 8.4 k/uL (3.8-10.6)
[2019-02-27 07:23] LABS: Calcium 8.2 mg/dL (8.4-10.2); Potassium 3.9 mmol/L (3.5-5.1)
[2019-02-27] MEDS: AMIODARONE 300 MG in DEXTROSE 5% IN WATER 250 ML IV SCH ×4 (08:14→18:04)
[2019-02-27] MEDS: PREGABALIN 75 MG CAP PO SCH ×2 (08:18→20:20)
[2019-02-27] MEDS: CLINDAMYCIN 900 MG in DEXTROSE 5% IN WATER 50 ML IVPB SCH ×6 (08:18→23:34)
[2019-02-27] MEDS: HYDROcodone/APAP 7.5-325MG 1 EACH TAB PO SCH ×2 (08:18→20:20)
[2019-02-27] MEDS: CITALOPRAM HYDROBROMIDE 20 MG TAB PO SCH (08:18)
[2019-02-27] MEDS: FAMOTIDINE 20 MG TAB PO SCH ×2 (08:18→20:20)
[2019-02-27] MEDS: HEPARIN SODIUM,PORCINE 5,000 UNIT/ML 1 ML VIAL IV PRN (08:18)
[2019-02-27] MEDS: CLOTRIMAZOLE 1% CREAM 15 GM TUBE TOPICAL SCH ×2 (08:20→20:21)
[2019-02-27] MEDS ORDERED: METOPROLOL TARTRATE 25 MG TAB PO SCH (09:00)
[2019-02-27] MEDS: APIXABAN 5 MG TAB PO SCH ×2 (09:26→20:20)
--- NOTE | 2019-02-27 14:55 | PN ---
PROGRESS NOTE DATE OF SERVICE: 02/27/2019 REASON FOR FOLLOWUP: Left leg venostasis ulcer with secondary cellulitis. INTERVAL HISTORY: The patient is currently afebrile. Patient has been breathing comfortably. Denies having any chest pain or any cough. No abdominal pain. Still has swelling in the leg, resolved redness and the pain has improved. PHYSICAL EXAMINATION: Blood pressure is 116/66 with a pulse of 100, temperature 98.4. He is 97% on room air. General description is a middle-aged male, lying in bed in no distress. RESPIRATORY SYSTEM: Unlabored breathing, clear to auscultation anteriorly. HEART: S1, S2. Regular rate and rhythm. ABDOMEN: Soft, nontender. Left leg with swelling, redness is resolved. Wound with no drainage. LABS: Hemoglobin is 12.5, white count 8.4, BUN of 22, creatinine 1.28. DIAGNOSTIC IMPRESSION AND PLAN: Patient with acute left lower extremity, venous stasis ulcer. Culture positive for MRSA. This patient did have problem with vancomycin, currently covered with daptomycin. Will be continued for another 7-10 days and [place] to be discontinued when discharged. Continue supportive care. MMODL / IJN: [id number] /
--- NOTE | 2019-02-27 15:45 | P.PN ---
Subjective Progress Note Date: 02/27/19 This is a 48-year-old gentleman with history of sleep apnea, occasional EtOH use on the weekends, no hypertension, no diabetes, no hyperlipidemia, who initially presented to the hospital because of redness swelling and discomfort in his left lower extremity. According to the patient, he had hit his leg on something, had an open area which developed an ulcer, since then he's been noticing significant swelling, and worsening redness all the way up into his thigh area. Patient also states he's been experiencing some symptoms of dizziness and blurring of vision, he also notices at times it feels as though his heart racing fast and like he's having an anxiety attack. Patient states he was feeling feverish at home although he did not take his temperature there, was experiencing chest heaviness with this anxious feeling and came to the emergency room for all of the above reasons. Patient had a venous duplex study done of bilateral lower extremities which was negative for DVT. He had been seen in consultation by ID and initiated on antibiotics. This morning, and 18 was called and the patient because he became extremely short of breath, his heart rate was in the 130s to 150s range. An EKG was performed which showed atrial flutter with a rapid ventricular response. She did see it feels some heaviness in his chest, and felt as though his heart was pounding fast. He was seen and evaluated on the medical surgical unit, blood pressure was 94/64 with a heart rate of 150, afebrile, 96% on 2 L of oxygen. White blood cell count 12.8, hemoglobin 13.1, platelet count 305. Sodium 136, potassium 3.5, BUN 25, creatinine 1.2. Magnesium 1.8. I did order a TSH level which came back at 2.399 with free T4 2.03. Patient was quite short of breath at the time of my examination. Stat echocardiogram with Doppler study has been requested. We'll start the patient on IV amiodarone, IV heparin, and transferred to cardiac unit. 02/27/2019 Patient seen and examined today on the cardiac unit. Continues to be in atrial flutter with a heart rate in the 70s to 80s. Echocardiogram with Doppler study revealed an ejection fraction of 50-55%. This was however performed when the patient's heart rate was fast we will repeat an limited echo tomorrow. Patient feels significantly better overall. Blood pressure 116/60 with a heart rate of 90, 97% on room air. White blood cell count is normal, hemoglobin 12.5, platelet count 299. Sodium 139, potassium 3.9, BUN 22 and creatinine 1.2. TSH normal Objective - Vital Signs Vital signs: Vital Signs Temp 98.4 F 02/27/19 12:00 Pulse 100 02/27/19 12:00 Resp 20 02/27/19 12:00 BP 116/66 02/27/19 12:00 Pulse Ox 97 02/27/19 12:00 Intake & Output 02/26/19 02/27/19 02/27/19 18:59 06:59 18:59 Intake Total 547.66 718.340 329.309 Output Total 1700 1475 500 Balance -1152.34 -756.660 -170.691 Weight 146.964 kg 152 kg Intake: Intake, IV Titration 71.66 178.340 69.309 Amount Heparin Sod,Pork in 0.45% 71.66 178.340 69.309 NaCl 25,000 unit In 0.45 % NaCl 1 250ml.bag @ 6. 804 UNITS/KG/HR 9.999 mls /hr IV .Q24H [facility] Rx#: [id number] Oral 476 540 260 Output: Urine 1700 1475 500 Other: Voiding Method Urinal Urinal # Voids 1 2 1 - Exam PHYSICAL EXAMINATION: GENERAL: 48-year-old gentleman in mild respiratory distress at the time of my examination HEENT: Head is atraumatic, normocephalic. Pupils equal, round. Sclera anicteric. Conjunctiva are clear. Mucous membranes of the mouth are moist. Neck is supple. There is elevated jugular venous pressure. No carotid bruit is heard. HEART EXAMINATION: Heart S1 and S2 tachycardic CHEST EXAMINATION: Lungs are clear to auscultation ABDOMEN: Soft, obese, nontender. Bowel sounds are heard. No organomegaly noted. EXTREMITIES:[ 2+ peripheral pulses with 1-2+ evidence of peripheral edema , left anterior leg has a wound with a necrotic base, significant redness NEUROLOGIC patient is awake, alert and oriented 3 . . - Labs CBC & Chem 7: 02/27/19 06:36 02/27/19 06:36 Labs: Abnormal Lab Results - Last 24 Hours (Table) 02/26/19 02/27/19 02/27/19 Range/Units 21:14 06:36 06:36 RBC 4.22 L (4.30-5.90) m/uL Hgb 12.5 L (13.0-17.5) gm/dL Hct 38.5 L (39.0-53.0) % APTT 33.3 H 33.6 H (22.0-30.0) sec BUN (9-20) mg/dL Creatinine (0.66-1.25) mg/dL Glucose (74-99) mg/dL Calcium (8.4-10.2) mg/dL 02/27/19 Range/Units 06:36 RBC (4.30-5.90) m/uL Hgb (13.0-17.5) gm/dL Hct (39.0-53.0) % APTT (22.0-30.0) sec BUN 22 H (9-20) mg/dL Creatinine 1.28 H (0.66-1.25) mg/dL Glucose 104 H (74-99) mg/dL Calcium 8.2 L (8.4-10.2) mg/dL Microbiology - Last 24 Hours (Table) 02/26/19 08:37 Blood Culture - Preliminary Blood No Growth after 24 hours 02/21/19 21:48 Blood Culture - Preliminary Blood No Growth after 120 hours 02/21/19 21:10 Blood Culture - Preliminary Blood No Growth after 120 hours Assessment and Plan Plan: Assessment and plan #1 left lower extremity cellulitis #2 atrial flutter, typical, rapid ventricular response, TSH 0.399 #3 history of sleep apnea #4 history of venous insufficiency #4 hypokalemia #5 renal insufficiency, resolved Plan Echocardiogram with Doppler study was performed which revealed a normal left ventricular systolic function, patient's heart rate was quite fast at the time his echo was performed so we will perform a limited echo tomorrow. Discontinue IV heparin and start the patient on Eliquis for anticoagulation. Once the IV amiodarone was infused we will start the patient on oral amiodarone. DNP note has been reviewed, I agree with a documented findings and plan of care. Patient was seen and examined.
[2019-02-27] MEDS ORDERED: METOPROLOL TARTRATE 25 MG TAB PO STA (16:04)
[2019-02-27] MEDS: traMADol 50 MG TAB PO PRN (18:06)
[2019-02-27] MEDS: AMIODARONE 200 MG TAB PO SCH (20:19)
[2019-02-27] MEDS: METOPROLOL TARTRATE 50 MG TAB PO SCH (20:20)
--- NOTE | 2019-02-28 00:37 | P.PN ---
Subjective Progress Note Date: 02/27/19 Principal diagnosis: Left lower extremities cellulitis New onset atrial flutter Patient is admitted for left anterior garnett ulcer with infection with cellulitis extending up to the left thigh area. Patient is is alert his extending up wound. Vascular surgery valid patient infectious disease evaluate the patient patient is presently on daptomycin and cefepime midthigh. Wound cultures are not available yet. Patient is comparing of severe pain and headache for which I am ordering Fioricet as well as tramadol for pain patient is on [place] presently. 02/23/2019 Patient's redness since the late is improved patient has significant swelling in the left leg will use Carmelo bandages. Patient will be continued on IV fluids. Patient's serum creatinine is 1.5 baseline creatinine is around the 1 from September of last year 02/24/2019 No overnight events patient will be discharged to subacute rehabilitation most probably hopefully tomorrow IV fluids will be discontinued there is no in Coumadin creatinine patient appears to chronic kidney disease stage III 02/26/2019 Patient was transferred to telemetry unit due to new onset atrial flutter. Currently patient is on amiodarone drip and heparin drip. Cardiology is following. Patient otherwise denied any complaints of chest pain or shortness of breath currently. Patient felt like panic attack yesterday which he gets on and off while at home as well. No commerce of headache or dizziness or lightheadedness. Cardiology is following. Left lower extremity redness is improving. Still having segments swelling. Patient is being continued on IV antibiotics. No fever no chills. No nausea vomiting or abdominal pain. No diarrhea. 02/27/2019 Patient denied any complaints of chest pain or worsening shortness of breath. Patient is currently atrial flutter with heart rate is controlled. Neck and 2-D echo cardiac exam showed his ejection fraction 50-55%. Otherwise patient is being continued on antibiotics for left leg cellulitis which is improving. Cardiology and ID is following. Creatinine 1.28 Current medications reviewed. Objective - Vital Signs Vital signs: Vital Signs Temp 98.2 F 02/27/19 19:25 Pulse 96 02/27/19 19:25 Resp 18 02/27/19 19:25 BP 132/62 02/27/19 19:25 Pulse Ox 96 02/27/19 19:25 Intake & Output 02/27/19 02/27/19 02/28/19 06:59 18:59 06:59 Intake Total 718.340 909.309 Output Total 1475 500 Balance -756.660 409.309 Weight 152 kg Intake: Intake, IV Titration 178.340 69.309 Amount Heparin Sod,Pork in 0.45% 178.340 69.309 NaCl 25,000 unit In 0.45 % NaCl 1 250ml.bag @ 6. 804 UNITS/KG/HR 9.999 mls /hr IV .Q24H [facility] Rx#: [id number] Oral 540 840 Output: Urine 1475 500 Other: Voiding Method Urinal # Voids 2 1 - Exam PHYSICAL EXAMINATION: GENERAL: The patient is alert and oriented x3, not in any acute distress. Well developed, well nourished. Patient is obese HEENT: Pupils are round and equally reacting to light. EOMI. No scleral icterus. No conjunctival pallor. Normocephalic, atraumatic. No pharyngeal erythema. No thyromegaly. CARDIOVASCULAR: S1 and S2 present. No murmurs, rubs, or gallops. PULMONARY: Chest is clear to auscultation, no wheezing or crackles. ABDOMEN: Soft, nontender, nondistended, normoactive bowel sounds. No palpable or ganomegaly. MUSCULOSKELETAL: No joint swelling or deformity. EXTREMITIES: No cyanosis, clubbing, or pedal edema. NEUROLOGICAL: Gross neurological examination did not reveal any focal deficits. SKIN: Ulcer and cellulitis as mentioned in the interval history redness did improve compared to yesterday - Labs CBC & Chem 7: 02/27/19 06:36 02/27/19 06:36 Labs: Abnormal Lab Results - Last 24 Hours (Table) 02/26/19 02/27/19 02/27/19 Range/Units 21:14 06:36 06:36 RBC 4.22 L (4.30-5.90) m/uL Hgb 12.5 L (13.0-17.5) gm/dL Hct 38.5 L (39.0-53.0) % APTT 33.3 H 33.6 H (22.0-30.0) sec BUN (9-20) mg/dL Creatinine (0.66-1.25) mg/dL Glucose (74-99) mg/dL Calcium (8.4-10.2) mg/dL 02/27/19 Range/Units 06:36 RBC (4.30-5.90) m/uL Hgb (13.0-17.5) gm/dL Hct (39.0-53.0) % APTT (22.0-30.0) sec BUN 22 H (9-20) mg/dL Creatinine 1.28 H (0.66-1.25) mg/dL Glucose 104 H (74-99) mg/dL Calcium 8.2 L (8.4-10.2) mg/dL Microbiology - Last 24 Hours (Table) 02/26/19 08:37 Blood Culture - Preliminary Blood No Growth after 24 hours 02/21/19 21:48 Blood Culture - Preliminary Blood No Growth after 120 hours 02/21/19 21:10 Blood Culture - Preliminary Blood No Growth after 120 hours Assessment and Plan Assessment: -New onset atrial flutter with rapid ventricular rate. Currently on amiodarone and heparin drips. 2-D echocardiogram showed normal ejection fraction.. - Left lower extremity cellulitis along with the infected venous ulcer, status post debridement and patient is on daptomycin and and clindamycin now, - AK I multifactorial and secondary to nonsteroidal anti-inflammatory his diuretics which are being held at this time and patient is on IV fluids which will be continued. 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 Time with Patient: Greater than 30
[2019-02-28] MEDS: diphenhydrAMINE 25 MG CAP PO PRN (02:03)
[2019-02-28] MEDS: ACETAMINOPHEN TAB 325 MG TAB PO SCH ×3 (06:01→18:23)
[2019-02-28] MEDS: FAMOTIDINE 20 MG TAB PO SCH ×2 (08:39→20:23)
[2019-02-28] MEDS: AMIODARONE 200 MG TAB PO SCH ×2 (08:39→20:23)
[2019-02-28] MEDS: APIXABAN 5 MG TAB PO SCH ×2 (08:39→20:22)
[2019-02-28] MEDS: CLINDAMYCIN 900 MG in DEXTROSE 5% IN WATER 50 ML IVPB SCH ×2 (08:39)
[2019-02-28] MEDS: CITALOPRAM HYDROBROMIDE 20 MG TAB PO SCH (08:39)
[2019-02-28] MEDS: METOPROLOL TARTRATE 50 MG TAB PO SCH ×2 (08:39→20:23)
[2019-02-28] MEDS: HYDROcodone/APAP 7.5-325MG 1 EACH TAB PO SCH ×2 (08:40→20:23)
[2019-02-28] MEDS: CLOTRIMAZOLE 1% CREAM 15 GM TUBE TOPICAL SCH ×2 (08:40→20:25)
[2019-02-28] MEDS: PREGABALIN 75 MG CAP PO SCH ×2 (08:40→20:22)
--- NOTE | 2019-02-28 10:51 | ECHOF ---
Referral Reason:limited to assess lvf MEASUREMENTS -------- HEIGHT: 182.9 cm WEIGHT: 144.7 kg BP: IVSd: 1.3 cm (0.6 - 1.1) LVIDd: 5.0 cm (3.9 - 5.3) LVPWd: 1.6 cm (0.6 - 1.1) IVSs: 2.4 cm LVIDs: 2.4 cm LVPWs: 1.8 cm FINDINGS -------- The rhythm appears to be atrial flutter. Limited Study There is moderate concentric left ventricular hypertrophy. Overall left ventricular systolic functi on is normal with, an EF between 55 - 60 %. Lumason used CONCLUSIONS -------- 1. The rhythm appears to be atrial flutter. 2. Limited Study 3. There is moderate concentric left ventricular hypertrophy. 4. Overall left ventricular systolic function is normal with, an EF between 55 - 60 %. 5. Lumason used CHIEF MEDICAL TECHNOLOGIST: Anny Hughes [facility]
--- NOTE | 2019-02-28 12:48 | P.PN ---
Subjective Progress Note Date: 02/28/19 This is a 48-year-old gentleman with history of sleep apnea, occasional EtOH use on the weekends, no hypertension, no diabetes, no hyperlipidemia, who initially presented to the hospital because of redness swelling and discomfort in his left lower extremity. According to the patient, he had hit his leg on something, had an open area which developed an ulcer, since then he's been noticing significant swelling, and worsening redness all the way up into his thigh area. Patient also states he's been experiencing some symptoms of dizziness and blurring of vision, he also notices at times it feels as though his heart racing fast and like he's having an anxiety attack. Patient states he was feeling feverish at home although he did not take his temperature there, was experiencing chest heaviness with this anxious feeling and came to the emergency room for all of the above reasons. Patient had a venous duplex study done of bilateral lower extremities which was negative for DVT. He had been seen in consultation by ID and initiated on antibiotics. This morning, and 18 was called and the patient because he became extremely short of breath, his heart rate was in the 130s to 150s range. An EKG was performed which showed atrial flutter with a rapid ventricular response. She did see it feels some heaviness in his chest, and felt as though his heart was pounding fast. He was seen and evaluated on the medical surgical unit, blood pressure was 94/64 with a heart rate of 150, afebrile, 96% on 2 L of oxygen. White blood cell count 12.8, hemoglobin 13.1, platelet count 305. Sodium 136, potassium 3.5, BUN 25, creatinine 1.2. Magnesium 1.8. I did order a TSH level which came back at 2.399 with free T4 2.03. Patient was quite short of breath at the time of my examination. Stat echocardiogram with Doppler study has been requested. We'll start the patient on IV amiodarone, IV heparin, and transferred to cardiac unit. 02/27/2019 Patient seen and examined today on the cardiac unit. Continues to be in atrial flutter with a heart rate in the 70s to 80s. Echocardiogram with Doppler study revealed an ejection fraction of 50-55%. This was however performed when the patient's heart rate was fast we will repeat an limited echo tomorrow. Patient feels significantly better overall. Blood pressure 116/60 with a heart rate of 90, 97% on room air. White blood cell count is normal, hemoglobin 12.5, platelet count 299. Sodium 139, potassium 3.9, BUN 22 and creatinine 1.2. TSH normal. 02/28/2019 Patient seen and examined today, continues to be in atrial flutter, heart rate this morning again up in the 120 range. We did have a discussion with the patient regarding cardioversion this morning, we will schedule him for a SEMAJ and cardioversion today. The risks and the benefits of the procedure were explained to the patient in detail and he is willing to proceed. Objective - Vital Signs Vital signs: Vital Signs Temp 98.8 F 02/28/19 08:00 Pulse 121 H 02/28/19 08:00 Resp 19 02/28/19 08:00 BP 150/73 02/28/19 08:00 Pulse Ox 98 02/28/19 08:00 Intake & Output 02/27/19 02/28/19 02/28/19 18:59 06:59 18:59 Intake Total 909.309 480 Output Total 500 450 Balance 409.309 -450 480 Weight 144.7 kg Intake: Intake, IV Titration 69.309 Amount Heparin Sod,Pork in 0.45% 69.309 NaCl 25,000 unit In 0.45 % NaCl 1 250ml.bag @ 6. 804 UNITS/KG/HR 9.999 mls /hr IV .Q24H [facility], [facility]–1983 Rx#: [id number] Oral 840 480 Output: Urine 500 450 Other: Voiding Method Urinal # Voids 1 - Exam PHYSICAL EXAMINATION: GENERAL: 48-year-old gentleman in mild respiratory distress at the time of my examination HEENT: Head is atraumatic, normocephalic. Pupils equal, round. Sclera anicteric. Conjunctiva are clear. Mucous membranes of the mouth are moist. Neck is supple. There is elevated jugular venous pressure. No carotid bruit is heard. HEART EXAMINATION: Heart S1 and S2 tachycardic CHEST EXAMINATION: Lungs are clear to auscultation ABDOMEN: Soft, obese, nontender. Bowel sounds are heard. No organomegaly noted. EXTREMITIES:[ 2+ peripheral pulses with 1-2+ evidence of peripheral edema , left anterior leg has a wound with a necrotic base, significant redness NEUROLOGIC patient is awake, alert and oriented 3 . . - Labs CBC & Chem 7: 02/27/19 06:36 02/27/19 06:36 Labs: Microbiology - Last 24 Hours (Table) 02/26/19 08:37 Blood Culture - Preliminary Blood No Growth after 48 hours 02/21/19 21:48 Blood Culture - Final Blood No Growth after 144 hours 02/21/19 21:10 Blood Culture - Final Blood No Growth after 144 hours Assessment and Plan Plan: Assessment and plan #1 left lower extremity cellulitis #2 atrial flutter, typical, rapid ventricular response, TSH 0.399 #3 history of sleep apnea #4 history of venous insufficiency #4 hypokalemia #5 renal insufficiency, resolved Plan Patient will be scheduled today to undergo transesophageal echocardiographic study and subsequent cardioversion. The benefits were explained to the patient in detail and he is willing to proceed. DNP note has been reviewed, I agree with a documented findings and plan of care. Patient was seen and examined.
[2019-02-28] MEDS: SODIUM CHLORIDE 0.9% 1,000 ML IV SCH (13:13)
--- NOTE | 2019-02-28 14:12 | PN ---
PROGRESS NOTE DATE OF SERVICE: 02/28/2019 REASON FOR FOLLOWUP: Left lower extremity venostasis also secondary to cellulitis. INTERVAL HISTORY: The patient is currently afebrile. The patient is breathing comfortably. Denies having any chest pain or cough. Main symptom has been swelling to the left leg and no diarrhea. PHYSICAL EXAMINATION: Blood pressure is 150/73 with a pulse of 71, temperature 98.2, he is 98% on room air. General description is a middle-aged male, lying in bed in no distress. RESPIRATORY SYSTEM: Unlabored breathing, clear to auscultation anteriorly. HEART: S1, S2. Regular rate and rhythm. ABDOMEN: Soft, no tenderness. Left leg with swelling. The redness has improved, no drainage on the dressing. LABS: Hemoglobin is 12.5, white count 8.4, BUN of 22, creatinine 1.28. DIAGNOSTIC IMPRESSION AND PLAN: Patient with acute left lower extremity cellulitis, underlying venostasis ulcer. Patient is currently on daptomycin and [place] because of problem with the IV vancomycin, clindamycin will be discontinued. Continue with daptomycin for a week to finish a course of therapy. Local wound care to continue as ordered. Continue with supportive care. MMODL / IJN: [id number] /
[2019-02-28] MEDS: BUTALB/APAP/CAFF 50-325-40MG TAB PO PRN (15:31)
[2019-02-28] MEDS: clonazePAM 0.5 MG TAB PO PRN (21:31)
--- NOTE | 2019-03-01 00:45 | P.PN ---
Subjective Progress Note Date: 02/28/19 Principal diagnosis: Left lower extremities cellulitis New onset atrial flutter Patient is admitted for left anterior garnett ulcer with infection with cellulitis extending up to the left thigh area. Patient is is alert his extending up wound. Vascular surgery valid patient infectious disease evaluate the patient patient is presently on daptomycin and cefepime midthigh. Wound cultures are not available yet. Patient is comparing of severe pain and headache for which I am ordering Fioricet as well as tramadol for pain patient is on [place] presently. 02/23/2019 Patient's redness since the late is improved patient has significant swelling in the left leg will use Carmelo bandages. Patient will be continued on IV fluids. Patient's serum creatinine is 1.5 baseline creatinine is around the 1 from September of last year 02/24/2019 No overnight events patient will be discharged to subacute rehabilitation most probably hopefully tomorrow IV fluids will be discontinued there is no in Coumadin creatinine patient appears to chronic kidney disease stage III 02/26/2019 Patient was transferred to telemetry unit due to new onset atrial flutter. Currently patient is on amiodarone drip and heparin drip. Cardiology is following. Patient otherwise denied any complaints of chest pain or shortness of breath currently. Patient felt like panic attack yesterday which he gets on and off while at home as well. No commerce of headache or dizziness or lightheadedness. Cardiology is following. Left lower extremity redness is improving. Still having segments swelling. Patient is being continued on IV antibiotics. No fever no chills. No nausea vomiting or abdominal pain. No diarrhea. 02/27/2019 Patient denied any complaints of chest pain or worsening shortness of breath. Patient is currently atrial flutter with heart rate is controlled. Neck and 2-D echo cardiac exam showed his ejection fraction 50-55%. Otherwise patient is being continued on antibiotics for left leg cellulitis which is improving. Cardiology and ID is following. Creatinine 1.28 02/28/2019 Patient denied any complains of chest pain or shortness of breath. Patient remained in atrial flutter with heparin Rate. Cardiology is planning for SEMAJ with cardioversion. Otherwise left lower activity swelling about the wound is still present. Redness is improving. No purulent drainage. Patient is being continued on antibiotics in the form of daptomycin. No fever no chills. No nausea vomiting or abdominal pain. No diarrhea. Tolerating oral diet. Cardiology and ID is following Current medications reviewed. Objective - Vital Signs Vital signs: Vital Signs Temp 98.8 F 02/28/19 08:00 Pulse 130 H 02/28/19 15:42 Resp 14 02/28/19 15:42 BP 146/85 02/28/19 15:42 Pulse Ox 97 02/28/19 15:42 Intake & Output 02/27/19 02/28/19 02/28/19 18:59 06:59 18:59 Intake Total 909.309 480 Output Total 500 450 Balance 409.309 -450 480 Weight 144.7 kg Intake: Intake, IV Titration 69.309 Amount Heparin Sod,Pork in 0.45% 69.309 NaCl 25,000 unit In 0.45 % NaCl 1 250ml.bag @ 6. 804 UNITS/KG/HR 9.999 mls /hr IV .Q24H [facility] Rx#: [id number] Oral 840 480 Output: Urine 500 450 Other: Voiding Method Urinal Urinal # Voids 1 2 # Bowel Movements 1 - Exam PHYSICAL EXAMINATION: GENERAL: The patient is alert and oriented x3, not in any acute distress. Well developed, well nourished. Patient is obese HEENT: Pupils are round and equally reacting to light. EOMI. No scleral icterus. No conjunctival pallor. Normocephalic, atraumatic. No pharyngeal erythema. No thyromegaly. CARDIOVASCULAR: S1 and S2 present. No murmurs, atrial flutter.. PULMONARY: Chest is clear to auscultation, no wheezing or crackles. ABDOMEN: Soft, nontender, nondistended, normoactive bowel sounds. No palpable organomegaly. MUSCULOSKELETAL: No joint swelling or deformity. EXTREMITIES: No cyanosis, clubbing, or pedal edema. Left lower extremities cellulitis with wound over the anterior garnett . No purulent drainage. NEUROLOGICAL: Gross neurological examination did not reveal any focal deficits. SKIN: Ulcer and cellulitis as mentioned in the interval history redness did improve compared to yesterday - Labs CBC & Chem 7: 02/27/19 06:36 02/27/19 06:36 Labs: Microbiology - Last 24 Hours (Table) 02/26/19 08:37 Blood Culture - Preliminary Blood No Growth after 48 hours 02/21/19 21:48 Blood Culture - Final Blood No Growth after 144 hours 02/21/19 21:10 Blood Culture - Final Blood No Growth after 144 hours Assessment and Plan Assessment: -New onset atrial flutter with rapid ventricular rate. Currently on amiodarone and heparin drips. 2-D echocardiogram showed normal ejection fraction.. Cardiology is planning For SEMAJ with cardioversion today. - Left lower extremity cellulitis along with the infected venous ulcer, status post debridement and patient is on daptomycin and and clindamycin now, - AK I multifactorial and secondary to nonsteroidal anti-inflammatory his diuretics which are being held at this time. 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 Time with Patient: Greater than 30
[2019-03-01] MEDS: ACETAMINOPHEN TAB 325 MG TAB PO SCH ×5 (01:35→23:46)
[2019-03-01] MEDS: FAMOTIDINE 20 MG TAB PO SCH ×2 (08:16→20:15)
[2019-03-01] MEDS: HYDROcodone/APAP 7.5-325MG 1 EACH TAB PO SCH ×2 (08:16→20:15)
[2019-03-01] MEDS: AMIODARONE 200 MG TAB PO SCH ×2 (08:16→20:16)
[2019-03-01] MEDS: METOPROLOL TARTRATE 50 MG TAB PO SCH ×2 (08:16→20:16)
[2019-03-01] MEDS: CITALOPRAM HYDROBROMIDE 20 MG TAB PO SCH (08:16)
[2019-03-01] MEDS: APIXABAN 5 MG TAB PO SCH ×2 (08:16→20:16)
[2019-03-01] MEDS: PREGABALIN 75 MG CAP PO SCH ×2 (08:16→20:15)
[2019-03-01] MEDS: CLOTRIMAZOLE 1% CREAM 15 GM TUBE TOPICAL SCH ×2 (08:18→20:16)
--- NOTE | 2019-03-01 10:14 | P.PN ---
Subjective Progress Note Date: 03/01/19 Principal diagnosis: Paroxysmal atrial fibrillation This is a pleasant 48-year-old gentleman who was admitted to the hospital with bilateral lower extremity cellulitis and was found to be in atrial flutter which was uncontrolled on maximize medical treatment. Currently he is on oral anticoagulation. The plan is to proceed with a SEMAJ and cardioversion later on today. Objective - Vital Signs Vital signs: Vital Signs Temp 100.6 F H 03/01/19 08:00 Pulse 143 H 03/01/19 08:00 Resp 18 03/01/19 08:00 BP 136/71 03/01/19 08:00 Pulse Ox 95 03/01/19 08:00 Intake & Output 02/28/19 03/01/19 03/01/19 18:59 06:59 18:59 Intake Total 480 Output Total 1800 Balance 480 -1800 Weight 141.7 kg Intake: Oral 480 Output: Urine 1800 Other: Voiding Method Urinal Urinal # Voids 2 # Bowel Movements 1 - Constitutional General appearance: Present: no acute distress - Labs CBC & Chem 7: 02/27/19 06:36 02/27/19 06:36 Labs: Microbiology - Last 24 Hours (Table) 02/26/19 08:37 Blood Culture - Preliminary Blood No Growth after 48 hours Assessment and Plan Assessment: Assessment #1 bilateral lower extremity cellulitis #2 atrial flutter with uncontrolled heart rate #3 multiple comorbid conditions Plan #1 continue the current medical regimen including metoprolol, amiodarone, and oral anticoagulation #2 proceed with a SEMAJ and cardioversion later on today
[2019-03-01] MEDS ORDERED: BENZOCAINE SPRAY 1 CAN TOPICAL ONE (10:28)
[2019-03-01] MEDS ORDERED: fentaNYL (PF) 50 MCG/ML 2 ML AMP ONE (10:32)
[2019-03-01] MEDS ORDERED: PROPOFOL 10 MG/ML 20 ML VIAL IV ONE (10:32)
[2019-03-01] MEDS ORDERED: MIDAZOLAM 2 MG/2 ML VIAL ONE (10:32)
[2019-03-01] MEDS ORDERED: LACTATED RINGERS 1,000 ML IV ONE (10:37)
--- NOTE | 2019-03-01 13:30 | P.PN ---
Subjective Left lower extremities cellulitis New onset atrial flutter Patient is admitted for left anterior garnett ulcer with infection with cellulitis extending up to the left thigh area. Patient is is alert his extending up wound. Vascular surgery valid patient infectious disease evaluate the patient patient is presently on daptomycin and cefepime midthigh. Wound cultures are not available yet. Patient is comparing of severe pain and headache for which I am ordering Fioricet as well as tramadol for pain patient is on [place] presently. 02/23/2019 Patient's redness since the late is improved patient has significant swelling in the left leg will use Carmelo bandages. Patient will be continued on IV fluids. Patient's serum creatinine is 1.5 baseline creatinine is around the 1 from September of last year 02/24/2019 No overnight events patient will be discharged to subacute rehabilitation most probably hopefully tomorrow IV fluids will be discontinued there is no in Coumadin creatinine patient appears to chronic kidney disease stage III 02/26/2019 Patient was transferred to telemetry unit due to new onset atrial flutter. Currently patient is on amiodarone drip and heparin drip. Cardiology is following. Patient otherwise denied any complaints of chest pain or shortness of breath currently. Patient felt like panic attack yesterday which he gets on and off while at home as well. No commerce of headache or dizziness or lightheadedness. Cardiology is following. Left lower extremity redness is improving. Still having segments swelling. Patient is being continued on IV antibiotics. No fever no chills. No nausea vomiting or abdominal pain. No diarrhea. 02/27/2019 Patient denied any complaints of chest pain or worsening shortness of breath. Patient is currently atrial flutter with heart rate is controlled. Neck and 2-D echo cardiac exam showed his ejection fraction 50-55%. Otherwise patient is being continued on antibiotics for left leg cellulitis which is improving. Cardiology and ID is following. Creatinine 1.28 02/28/2019 Patient denied any complains of chest pain or shortness of breath. Patient remained in atrial flutter with heparin Rate. Cardiology is planning for SEMAJ with cardioversion. Otherwise left lower activity swelling about the wound is still present. Redness is improving. No purulent drainage. Patient is being continued on antibiotics in the form of daptomycin. No fever no chills. No nausea vomiting or abdominal pain. No diarrhea. Tolerating oral diet. Cardiology and ID is following 02/28/2019 Patient still has fever of 100.6. No leukocytosis. Creatinine 1.2 which is improvement from admission of 1.7 and 2.1. Patient remains on daptomycin for her left leg cellulitis. Infectious disease R following. She is currently on Eliquis and beta richard with heart rate is better controlled. He is a status post cardioversion this morning, and his heart rate is improved significantly from 140s down to 70. Objective - Vital Signs Vital signs: Vital Signs Temp 99.7 F H 03/01/19 12:00 Pulse 75 03/01/19 12:00 Resp 18 03/01/19 12:00 BP 110/57 03/01/19 12:00 Pulse Ox 96 03/01/19 12:00 Intake & Output 02/28/19 03/01/19 03/01/19 18:59 06:59 18:59 Intake Total 480 20 Output Total 1800 Balance 480 -1800 20 Weight 141.7 kg Intake: IV 20 Oral 480 Output: Urine 1800 Other: Voiding Method Urinal Urinal Urinal # Voids 2 # Bowel Movements 1 - Exam GENERAL: The patient is alert and oriented x3, not in any acute distress. Well developed, well nourished. Patient is obese HEENT: Pupils are round and equally reacting to light. EOMI. No scleral icterus. No conjunctival pallor. Normocephalic, atraumatic. No pharyngeal erythema. No thyromegaly. CARDIOVASCULAR: S1 and S2 present. No murmurs, atrial flutter.. PULMONARY: Chest is clear to auscultation, no wheezing or crackles. ABDOMEN: Soft, nontender, nondistended, normoactive bowel sounds. No palpable organomegaly. MUSCULOSKELETAL: No joint swelling or deformity. EXTREMITIES: No cyanosis, clubbing, or pedal edema. Left leg is warm, swollen and tender. Dressing is present on the lower part of the leg. . No purulent drainage. NEUROLOGICAL: Gross neurological examination did not reveal any focal deficits. SKIN: Ulcer and cellulitis as mentioned in the interval history redness did improve compared to yesterday - Labs CBC & Chem 7: 02/27/19 06:36 02/27/19 06:36 Labs: Microbiology - Last 24 Hours (Table) 02/26/19 08:37 Blood Culture - Preliminary Blood No Growth after 72 hours Assessment and Plan Plan: -New onset atrial flutter with rapid ventricular rate. Currently on amiodarone and heparin drips. 2-D echocardiogram showed normal ejection fraction.. Status post cardioversion. Heart rate is improved - Left lower extremity cellulitis along with the infected venous ulcer, status post debridement and patient is on daptomycin and and clindamycin now, - AK I multifactorial and secondary to nonsteroidal anti-inflammatory his diuretics which are being held at this time. 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
[2019-03-01] MEDS: traMADol 50 MG TAB PO PRN (15:18)
--- NOTE | 2019-03-01 16:23 | ECHOT ---
TRANSESOPHAGEAL ECHOCARDIOGRAM DATE OF SERVICE: 03/01/2019 PERFORMING PHYSICIAN: Stewart Pelaez MD, power ballast machine operator. PROCEDURE PERFORMED: Transesophageal echocardiogram. INDICATION: This is a 48-year-old gentleman who was admitted to the hospital with bilateral lower extremity cellulitis and was found to be in atrial flutter, which was uncontrolled on maximized medical treatment. Because of that, he was brought today to undergo a transesophageal echocardiogram to rule out any intracardiac thrombus before cardioversion. COMPLICATION: None. LEVEL OF SEDATION: Deep sedation was performed using propofol. PROCEDURE DESCRIPTION: After obtaining an informed consent, explaining the procedure, benefits, risks, complications and alternatives, the patient was brought to the transesophageal echocardiogram suite. A pulse oximetry and heart rate monitors were attached to the patient prior to the procedure. The patient's throat was sprayed using lidocaine locally. Following that, the patient was turned into left lateral position. A bite guard was placed and the patient was then sedated with the above doses of Versed and fentanyl in divided doses. Following that, the transesophageal echocardiogram probe was advanced through the bite guard into the mid esophagus where 2-D echocardiogram images as well as color Doppler images of various cardiac structures were obtained. We evaluated the interatrial septum using 2-D echocardiogram, color Doppler, and contrast study. The procedure was completed. There were no complications. FINDINGS: The left ventricular dimension and systolic function appeared to be within normal limits with ejection fraction around 50%. The right ventricle appeared to be mildly dilated. The left atrium and right atrium are mildly dilated. The interatrial septum appeared to be intact without any evidence of shunt. The left atrial appendage appeared to be free from any thrombus. The aortic valve is trileaflet valve and appeared to be thickened and calcified without stenosis or regurgitation. The mitral valve seems to be mildly thickened with moderate MR. There was moderate tricuspid regurgitation was seen. CONCLUSION: 1. Normal left atrial appendage without any evidence of thrombus. 2. Intact interatrial septum without any evidence of shunt. 3. Low normal left ventricular systolic function with EF of 50%. 4. Mildly dilated right ventricle with normal function. 5. Moderate biatrial enlargement. 6. Aortic sclerosis without stenosis and without insufficiency. 7. Thickened mitral valve leaflets with moderate mitral regurgitation. 8. Moderate tricuspid regurgitation. 9. No evidence of pericardial effusion. MMODL / IJN: [id number] /
--- NOTE | 2019-03-01 16:29 | CE ---
CARDIAC ELECTROPHYSIOLOGY REPORT DATE OF SERVICE: 03/01/2019 PERFORMING PHYSICIAN: Stewart Pelaez MD. PROCEDURE PERFORMED: Cardioversion. INDICATION: Atrial flutter, was uncontrolled on maximized medical treatment. PROCEDURE DESCRIPTION: After transesophageal echocardiogram was performed, and after intracardiac thrombus was ruled out, we did perform cardioversion of atrial flutter to normal sinus mechanism using 100 joules on first attempt. CONCLUSION: Successful cardioversion of atrial flutter to normal sinus mechanism using 100 joules on first attempt. MMODL / IJN: [id number] /
[2019-03-01] MEDS: SODIUM CHLORIDE 0.9% 1,000 ML IV SCH (18:00)
[2019-03-02] MEDS: BUTALB/APAP/CAFF 50-325-40MG TAB PO PRN (02:42)
[2019-03-02] MEDS: ACETAMINOPHEN TAB 325 MG TAB PO SCH ×4 (05:07→23:30)
[2019-03-02 06:59] LABS: Albumin 3.3 g/dL (3.5-5.0); Calcium 8.6 mg/dL (8.4-10.2); Magnesium 1.9 mg/dL (1.6-2.3); Potassium 5.2 mmol/L (3.5-5.1); Total Bilirubin 1.2 mg/dL (0.2-1.3); Total Protein 7.3 g/dL (6.3-8.2)
[2019-03-02 07:02] LABS: HCT 35.9 % (39.0-53.0); HGB 11.8 gm/dL (13.0-17.5); MCH 30.2 pg (25.0-35.0); MCV 91.7 fL (80.0-100.0); Mean Platelet Volume 8.2; Platelet Count 409 k/uL (150-450); RBC 3.91 m/uL (4.30-5.90); RDW 14.5 % (11.5-15.5); WBC 4.7 k/uL (3.8-10.6)
[2019-03-02] MEDS: HYDROcodone/APAP 7.5-325MG 1 EACH TAB PO SCH ×2 (08:36→21:25)
[2019-03-02] MEDS: CLOTRIMAZOLE 1% CREAM 15 GM TUBE TOPICAL SCH ×2 (08:37→20:09)
[2019-03-02] MEDS: APIXABAN 5 MG TAB PO SCH ×2 (08:37→20:04)
[2019-03-02] MEDS: CITALOPRAM HYDROBROMIDE 20 MG TAB PO SCH (08:37)
[2019-03-02] MEDS: PREGABALIN 75 MG CAP PO SCH ×2 (08:37→20:04)
[2019-03-02] MEDS: METOPROLOL TARTRATE 50 MG TAB PO SCH ×2 (08:37→20:04)
[2019-03-02] MEDS: FAMOTIDINE 20 MG TAB PO SCH ×2 (08:37→20:04)
[2019-03-02] MEDS: AMIODARONE 200 MG TAB PO SCH ×2 (08:55→20:04)
--- NOTE | 2019-03-02 09:58 | P.PN ---
Subjective Progress Note Date: 03/02/19 Principal diagnosis: Paroxysmal atrial fibrillation This is a pleasant 48-year-old gentleman who was admitted to the hospital with bilateral lower extremity cellulitis and was found to be in atrial flutter which was uncontrolled on [facility] medical treatment. He underwent a SEMAJ and cardioversion yesterday. On follow-up with the patient today, March 022018, the patient is feeling overall better. He is in normal sinus mechanism. He is on amiodarone as well as metoprolol as well as oral anticoagulation. Objective - Vital Signs Vital signs: Vital Signs Temp 99.1 F 03/02/19 08:00 Pulse 68 03/02/19 08:00 Resp 20 03/02/19 08:00 BP 119/73 03/02/19 08:00 Pulse Ox 99 03/02/19 08:00 Intake & Output 03/01/19 03/02/19 03/02/19 18:59 06:59 18:59 Intake Total 250 Output Total 2200 800 Balance -1950 -800 Weight 141.8 kg Intake: IV 20 Oral 230 Output: Urine 2200 800 Other: Voiding Method Urinal Urinal Urinal # Voids 1 # Bowel Movements 1 - Constitutional General appearance: Present: no acute distress - Respiratory Respiratory: bilateral: diminished - Cardiovascular Rhythm: regular Heart sounds: normal: S1, S2 - Labs CBC & Chem 7: 03/02/19 05:54 03/02/19 05:54 Labs: Abnormal Lab Results - Last 24 Hours (Table) 03/02/19 03/02/19 Range/Units 05:54 05:54 RBC 3.91 L (4.30-5.90) m/uL Hgb 11.8 L (13.0-17.5) gm/dL Hct 35.9 L (39.0-53.0) % Potassium 5.2 H (3.5-5.1) mmol/L Creatinine 1.35 H (0.66-1.25) mg/dL AST 236 H (17-59) U/L ALT 234 H (21-72) U/L Alkaline Phosphatase 138 H (38-126) U/L Albumin 3.3 L (3.5-5.0) g/dL Microbiology - Last 24 Hours (Table) 02/26/19 08:37 Blood Culture - Preliminary Blood No Growth after 72 hours Assessment and Plan Assessment: Assessment #1 bilateral lower extremity cellulitis #2 atrial flutter with uncontrolled heart rate. Currently the patient is in normal sinus mechanism #3 multiple comorbid conditions Plan #1 continue the current medical regimen #2 possible discharge in the next 24 hours
[2019-03-02] MEDS: traMADol 50 MG TAB PO PRN ×3 (11:08→23:28)
--- NOTE | 2019-03-02 11:25 | P.PN ---
Subjective Left lower extremities cellulitis New onset atrial flutter Patient is admitted for left anterior garnett ulcer with infection with cellulitis extending up to the left thigh area. Patient is is alert his extending up wound. Vascular surgery valid patient infectious disease evaluate the patient patient is presently on daptomycin and cefepime midthigh. Wound cultures are not available yet. Patient is comparing of severe pain and headache for which I am ordering Fioricet as well as tramadol for pain patient is on [place] presently. 02/23/2019 Patient's redness since the late is improved patient has significant swelling in the left leg will use Carmelo bandages. Patient will be continued on IV fluids. Patient's serum creatinine is 1.5 baseline creatinine is around the 1 from September of last year 02/24/2019 No overnight events patient will be discharged to subacute rehabilitation most probably hopefully tomorrow IV fluids will be discontinued there is no in Coumadin creatinine patient appears to chronic kidney disease stage III 02/26/2019 Patient was transferred to telemetry unit due to new onset atrial flutter. Currently patient is on amiodarone drip and heparin drip. Cardiology is following. Patient otherwise denied any complaints of chest pain or shortness of breath currently. Patient felt like panic attack yesterday which he gets on and off while at home as well. No commerce of headache or dizziness or lightheadedness. Cardiology is following. Left lower extremity redness is improving. Still having segments swelling. Patient is being continued on IV antibiotics. No fever no chills. No nausea vomiting or abdominal pain. No diarrhea. 02/27/2019 Patient denied any complaints of chest pain or worsening shortness of breath. Patient is currently atrial flutter with heart rate is controlled. Neck and 2-D echo cardiac exam showed his ejection fraction 50-55%. Otherwise patient is being continued on antibiotics for left leg cellulitis which is improving. Cardiology and ID is following. Creatinine 1.28 02/28/2019 Patient denied any complains of chest pain or shortness of breath. Patient remained in atrial flutter with heparin Rate. Cardiology is planning for SEMAJ with cardioversion. Otherwise left lower activity swelling about the wound is still present. Redness is improving. No purulent drainage. Patient is being continued on antibiotics in the form of daptomycin. No fever no chills. No nausea vomiting or abdominal pain. No diarrhea. Tolerating oral diet. Cardiology and ID is following 03/01/2019 Patient still has fever of 100.6. No leukocytosis. Creatinine 1.2 which is improvement from admission of 1.7 and 2.1. Patient remains on daptomycin for her left leg cellulitis. Infectious disease R following. She is currently on Eliquis and beta richard with heart rate is better controlled. He is a status post cardioversion this morning, and his heart rate is improved significantly from 140s down to 70. 03/02/2019 Patient has no fever since yesterday. He still having significant left leg cellulitis, with a swelling warmth and tenderness. Dressing is in place. Risks of Vitas looks stable. No chest pain or dyspnea after the cardioversion done for him yesterday. No leukocytosis, his creatinine 1.35 today and potassium 5.2. Liver enzymes slightly elevated with normal bilirubin. Cardiology follow- up is appreciated. And the recommended to continue with amiodarone, metoprolol and oral anticoagulation. Objective - Vital Signs Vital signs: Vital Signs Temp 97.8 F 03/02/19 11:13 Pulse 63 03/02/19 11:13 Resp 20 03/02/19 11:13 BP 101/67 03/02/19 11:13 Pulse Ox 96 03/02/19 11:13 Intake & Output 03/01/19 03/02/19 03/02/19 18:59 06:59 18:59 Intake Total 250 Output Total 2200 800 650 Balance -1950 -800 -650 Weight 141.8 kg Intake: IV 20 Oral 230 Output: Urine 2200 800 650 Other: Voiding Method Urinal Urinal Urinal # Voids 1 # Bowel Movements 1 - Exam GENERAL: The patient is alert and oriented x3, not in any acute distress. Well developed, well nourished. Patient is obese HEENT: Pupils are round and equally reacting to light. EOMI. No scleral icterus. No conjunctival pallor. Normocephalic, atraumatic. No pharyngeal erythema. No thyromegaly. CARDIOVASCULAR: S1 and S2 present. No murmurs, atrial flutter.. PULMONARY: Chest is clear to auscultation, no wheezing or crackles. ABDOMEN: Soft, nontender, nondistended, normoactive bowel sounds. No palpable organomegaly. MUSCULOSKELETAL: No joint swelling or deformity. EXTREMITIES: No cyanosis, clubbing, or pedal edema. Left leg is warm, swollen and tender. Dressing is present on the lower part of the leg. . No purulent drainage. NEUROLOGICAL: Gross neurological examination did not reveal any focal deficits. SKIN: Ulcer and cellulitis as mentioned in the interval history redness did improve compared to yesterday - Labs CBC & Chem 7: 03/02/19 05:54 03/02/19 05:54 Labs: Abnormal Lab Results - Last 24 Hours (Table) 03/02/19 03/02/19 Range/Units 05:54 05:54 RBC 3.91 L (4.30-5.90) m/uL Hgb 11.8 L (13.0-17.5) gm/dL Hct 35.9 L (39.0-53.0) % Potassium 5.2 H (3.5-5.1) mmol/L Creatinine 1.35 H (0.66-1.25) mg/dL AST 236 H (17-59) U/L ALT 234 H (21-72) U/L Alkaline Phosphatase 138 H (38-126) U/L Albumin 3.3 L (3.5-5.0) g/dL Microbiology - Last 24 Hours (Table) 02/26/19 08:37 Blood Culture - Preliminary Blood No Growth after 72 hours Assessment and Plan Plan: -New onset atrial flutter with rapid ventricular rate. Currently on amiodarone and heparin drips. 2-D echocardiogram showed normal ejection fraction.. Status post cardioversion. Heart rate is improved - Left lower extremity cellulitis along with the infected venous ulcer, status post debridement and patient is on daptomycin and and clindamycin now, - AK I multifactorial and secondary to nonsteroidal anti-inflammatory his diuretics which are being held at this time. 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
[2019-03-02] MEDS: SODIUM CHLORIDE 0.9% 1,000 ML IV SCH (18:18)
[2019-03-03 03:57] VITALS: RESP 16
[2019-03-03] MEDS: ACETAMINOPHEN TAB 325 MG TAB PO SCH ×3 (05:54→17:17)
[2019-03-03] MEDS: traMADol 50 MG TAB PO PRN ×2 (05:55→20:43)
[2019-03-03 08:11] LABS: Albumin 3.6 g/dL (3.5-5.0); Calcium 9.2 mg/dL (8.4-10.2); Potassium 4.9 mmol/L (3.5-5.1); Total Bilirubin 1.2 mg/dL (0.2-1.3)
[2019-03-03] MEDS: METOPROLOL TARTRATE 50 MG TAB PO SCH ×2 (09:37→20:48)
[2019-03-03] MEDS: FAMOTIDINE 20 MG TAB PO SCH ×2 (09:37→20:48)
[2019-03-03] MEDS: CITALOPRAM HYDROBROMIDE 20 MG TAB PO SCH (09:37)
[2019-03-03] MEDS: AMIODARONE 200 MG TAB PO SCH ×2 (09:37→20:48)
[2019-03-03] MEDS: APIXABAN 5 MG TAB PO SCH ×2 (09:37→20:48)
[2019-03-03] MEDS: HYDROcodone/APAP 7.5-325MG 1 EACH TAB PO SCH ×2 (09:38→20:48)
[2019-03-03] MEDS: PREGABALIN 75 MG CAP PO SCH ×2 (09:38→20:48)
[2019-03-03] MEDS: CLOTRIMAZOLE 1% CREAM 15 GM TUBE TOPICAL SCH ×2 (09:41→23:19)
--- NOTE | 2019-03-03 14:06 | P.PN ---
Subjective Progress Note Date: 03/03/19 This is a 48-year-old gentleman with history of sleep apnea, occasional EtOH use on the weekends, no hypertension, no diabetes, no hyperlipidemia, who initially presented to the hospital because of redness swelling and discomfort in his left lower extremity. According to the patient, he had hit his leg on something, had an open area which developed an ulcer, since then he's been noticing significant swelling, and worsening redness all the way up into his thigh area. Patient also states he's been experiencing some symptoms of dizziness and blurring of vision, he also notices at times it feels as though his heart racing fast and like he's having an anxiety attack. Patient states he was feeling feverish at home although he did not take his temperature there, was experiencing chest heaviness with this anxious feeling and came to the emergency room for all of the above reasons. Patient had a venous duplex study done of bilateral lower extremities which was negative for DVT. He had been seen in consultation by ID and initiated on antibiotics. This morning, and 18 was called and the patient because he became extremely short of breath, his heart rate was in the 130s to 150s range. An EKG was performed which showed atrial flutter with a rapid ventricular response. She did see it feels some heaviness in his chest, and felt as though his heart was pounding fast. He was seen and evaluated on the medical surgical unit, blood pressure was 94/64 with a heart rate of 150, afebrile, 96% on 2 L of oxygen. White blood cell count 12.8, hemoglobin 13.1, platelet count 305. Sodium 136, potassium 3.5, BUN 25, creatinine 1.2. Magnesium 1.8. I did order a TSH level which came back at 2.399 with free T4 2.03. Patient was quite short of breath at the time of my examination. Stat echocardiogram with Doppler study has been requested. We'll start the patient on IV amiodarone, IV heparin, and transferred to cardiac unit. 02/27/2019 Patient seen and examined today on the cardiac unit. Continues to be in atrial flutter with a heart rate in the 70s to 80s. Echocardiogram with Doppler study revealed an ejection fraction of 50-55%. This was however performed when the patient's heart rate was fast we will repeat an limited echo tomorrow. Patient feels significantly better overall. Blood pressure 116/60 with a heart rate of 90, 97% on room air. White blood cell count is normal, hemoglobin 12.5, platelet count 299. Sodium 139, potassium 3.9, BUN 22 and creatinine 1.2. TSH normal. 02/28/2019 Patient seen and examined today, continues to be in atrial flutter, heart rate this morning again up in the 120 range. We did have a discussion with the patient regarding cardioversion this morning, we will schedule him for a SEMAJ and cardioversion today. The risks and the benefits of the procedure were explained to the patient in detail and he is willing to proceed. 03/03/2019 Patient did undergo a cardioversion, and continues to be in a normal sinus rhythm this morning. Hemodynamically stable. Arrangements are being made for him to be discharged home today. We'll make him a follow-up appointment in the office with Dr. Lovelace Objective - Vital Signs Vital signs: Vital Signs Temp 98.4 F 03/03/19 08:00 Pulse 69 03/03/19 08:00 Resp 16 03/03/19 03:52 BP 129/69 03/03/19 08:00 Pulse Ox 96 03/03/19 08:00 Intake & Output 03/02/19 03/03/19 03/03/19 18:59 06:59 18:59 Intake Total 470 230 720 Output Total 2150 750 Balance -1680 -520 720 Weight 140.7 kg Intake: Oral 470 230 720 Output: Urine 2150 750 Other: Voiding Method Urinal Urinal # Voids 1 1 # Bowel Movements 1 - Exam PHYSICAL EXAMINATION: GENERAL: 48-year-old gentleman in mild respiratory distress at the time of my examination HEENT: Head is atraumatic, normocephalic. Pupils equal, round. Sclera an icteric. Conjunctiva are clear. Mucous membranes of the mouth are moist. Neck is supple. There is elevated jugular venous pressure. No carotid bruit is heard. HEART EXAMINATION: Heart S1 and S2 normal CHEST EXAMINATION: Lungs are clear to auscultation ABDOMEN: Soft, obese, nontender. Bowel sounds are heard. No organomegaly noted. EXTREMITIES:[ 2+ peripheral pulses with 1-2+ evidence of peripheral edema , left anterior leg has a wound with a necrotic base, significant redness NEUROLOGIC patient is awake, alert and oriented 3 . . - Labs CBC & Chem 7: 03/02/19 05:54 03/03/19 07:37 Labs: Abnormal Lab Results - Last 24 Hours (Table) 03/03/19 Range/Units 07:37 AST 284 H (17-59) U/L ALT 336 H (21-72) U/L Alkaline Phosphatase 153 H (38-126) U/L Microbiology - Last 24 Hours (Table) 02/26/19 08:37 Blood Culture - Preliminary Blood No Growth after 120 hours Assessment and Plan Plan: Assessment and plan #1 left lower extremity cellulitis #2 atrial flutter, typical, rapid ventricular response, TSH 0.399 status post elective cardioversion, currently in normal sinus rhythm. #3 history of sleep apnea #4 history of venous insufficiency #4 hypokalemia #5 renal insufficiency, resolved Plan Cardiology's perspective, patient may be able to be discharged home today. We'll make him a follow-up appointment to see Dr. Lovelace in the office post discharge. DNP note has been reviewed, I agree with a documented findings and plan of care. Patient was seen and examined.
[2019-03-03] MEDS: SODIUM CHLORIDE 0.9% 1,000 ML IV SCH (17:16)
[2019-03-03] MEDS ORDERED: ACETAMINOPHEN TAB 325 MG TAB PO PRN (17:16)
--- NOTE | 2019-03-03 20:02 | P.PN ---
Progress Note - Text Progress Note Date: 03/02/19 DATE OF SERVICE: 03/02/2019 REASON FOR FOLLOWUP: Left lower extremity venostasis ulcer secondary MRSA cellulitis. INTERVAL HISTORY: The patient denies any fever or chills. The patient is breathing comfortably. Denies having any chest pain or cough. The patient denies pain to the left leg area and no diarrhea with antibiotic therapy PHYSICAL EXAMINATION: Blood pressure is 140/75 with a pulse of 70, temperature 98.2, he is 98% on room air. General description is a middle-aged male, lying in bed in no distress. RESPIRATORY SYSTEM: Unlabored breathing, clear to auscultation anteriorly. HEART: S1, S2. Regular rate and rhythm. ABDOMEN: Soft, no tenderness. Left leg with swelling. The redness has improved, wound up with no slough tissue And no foul-smelling drainage. LABS: Reviewed DIAGNOSTIC IMPRESSION AND PLAN: Patient with acute left lower extremity cellulitis, underlying venostasis ulcer. Patient is currently on daptomycin, that'll be transitioned to oral doxycycline On discharge. Local wound care will be switched over to dry Aquacel silver dressing. Continue with supportive care.
--- NOTE | 2019-03-03 20:24 | P.PN ---
Subjective Left lower extremities cellulitis New onset atrial flutter Patient is admitted for left anterior garnett ulcer with infection with cellulitis extending up to the left thigh area. Patient is is alert his extending up wound. Vascular surgery valid patient infectious disease evaluate the patient patient is presently on daptomycin and cefepime midthigh. Wound cultures are not available yet. Patient is comparing of severe pain and headache for which I am ordering Fioricet as well as tramadol for pain patient is on [place] presently. 02/23/2019 Patient's redness since the late is improved patient has significant swelling in the left leg will use Carmelo bandages. Patient will be continued on IV fluids. Patient's serum creatinine is 1.5 baseline creatinine is around the 1 from September of last year 02/24/2019 No overnight events patient will be discharged to subacute rehabilitation most probably hopefully tomorrow IV fluids will be discontinued there is no in Coumadin creatinine patient appears to chronic kidney disease stage III 02/26/2019 Patient was transferred to telemetry unit due to new onset atrial flutter. Currently patient is on amiodarone drip and heparin drip. Cardiology is following. Patient otherwise denied any complaints of chest pain or shortness of breath currently. Patient felt like panic attack yesterday which he gets on and off while at home as well. No commerce of headache or dizziness or lightheadedness. Cardiology is following. Left lower extremity redness is improving. Still having segments swelling. Patient is being continued on IV antibiotics. No fever no chills. No nausea vomiting or abdominal pain. No diarrhea. 02/27/2019 Patient denied any complaints of chest pain or worsening shortness of breath. Patient is currently atrial flutter with heart rate is controlled. Neck and 2-D echo cardiac exam showed his ejection fraction 50-55%. Otherwise patient is being continued on antibiotics for left leg cellulitis which is improving. Cardiology and ID is following. Creatinine 1.28 02/28/2019 Patient denied any complains of chest pain or shortness of breath. Patient remained in atrial flutter with heparin Rate. Cardiology is planning for SEMAJ with cardioversion. Otherwise left lower activity swelling about the wound is still present. Redness is improving. No purulent drainage. Patient is being continued on antibiotics in the form of daptomycin. No fever no chills. No nausea vomiting or abdominal pain. No diarrhea. Tolerating oral diet. Cardiology and ID is following 03/01/2019 Patient still has fever of 100.6. No leukocytosis. Creatinine 1.2 which is improvement from admission of 1.7 and 2.1. Patient remains on daptomycin for her left leg cellulitis. Infectious disease R following. She is currently on Eliquis and beta richard with heart rate is better controlled. He is a status post cardioversion this morning, and his heart rate is improved significantly from 140s down to 70. 03/02/2019 Patient has no fever since yesterday. He still having significant left leg cellulitis, with a swelling warmth and tenderness. Dressing is in place. Risks of Vitas looks stable. No chest pain or dyspnea after the cardioversion done for him yesterday. No leukocytosis, his creatinine 1.35 today and potassium 5.2. Liver enzymes slightly elevated with normal bilirubin. Cardiology follow- up is appreciated. And the recommended to continue with amiodarone, metoprolol and oral anticoagulation. 03/03/2019 pt with no more chest pain or dyspnea since cardioversion for his a flutter, carediology team are following the case and they recommend pt can be discharge home from their prespective however pt is still with lower ext cellulitis especially on the left side with leg is warm and swelling however it is improving, i discussed [facility] case with ID team today and with agree pt will need more parenteral antibiotic for now and monitoring in the hospital . fever is improving . he still has elevated liver enz we will check hepatitis panel and liver US ROS CONSTITUTIONAL: No fever, no malaise, no fatigue. HEENT: No recent visual problems or hearing problems. Denied any sore throat. CARDIOVASCULAR: No orthopnea, PND, no palpitations, no syncope. PULMONARY: no cough, no hemoptysis. GASTROINTESTINAL: No diarrhea, no nausea, no vomiting, no abdominal pain. Normoactive bowel sounds. NEUROLOGICAL: No headaches, no weakness, no numbness. HEMATOLOGICAL: Denies any bleeding or petechiae. GENITOURINARY: Denies any burning micturition, frequency, or urgency. ENDOCRINE: Denies any polyuria or polydipsia. Objective - Vital Signs Vital signs: Vital Signs Temp 98.4 F 03/03/19 08:00 Pulse 64 03/03/19 16:00 Resp 16 03/03/19 03:52 BP 143/80 03/03/19 16:00 Pulse Ox 97 03/03/19 16:00 Intake & Output 03/03/19 03/03/19 03/04/19 06:59 18:59 06:59 Intake Total 230 1080 Output Total 750 525 Balance -520 555 Weight 140.7 kg Intake: Oral 230 1080 Output: Urine 750 525 Other: Voiding Method Urinal # Voids 1 - Exam GENERAL: The patient is alert and oriented x3, not in any acute distress. Well developed, well nourished. Patient is obese HEENT: Pupils are round and equally reacting to light. EOMI. No scleral icterus. No conjunctival pallor. Normocephalic, atraumatic. No pharyngeal erythema. No thyromegaly. CARDIOVASCULAR: S1 and S2 present. No murmurs, atrial flutter.. PULMONARY: Chest is clear to auscultation, no wheezing or crackles. ABDOMEN: Soft, nontender, nondistended, normoactive bowel sounds. No palpable organomegaly. MUSCULOSKELETAL: No joint swelling or deformity. EXTREMITIES: No cyanosis, clubbing, or pedal edema. Left leg is warm, swollen and tender. Dressing is present on the lower part of the leg. . No purulent drainage. NEUROLOGICAL: Gross neurological examination did not reveal any focal deficits. SKIN: Ulcer and cellulitis as mentioned in the interval history redness did improve compared to yesterday - Labs CBC & Chem 7: 03/02/19 05:54 03/03/19 07:37 Labs: Abnormal Lab Results - Last 24 Hours (Table) 03/03/19 Range/Units 07:37 AST 284 H (17-59) U/L ALT 336 H (21-72) U/L Alkaline Phosphatase 153 H (38-126) U/L Microbiology - Last 24 Hours (Table) 02/26/19 08:37 Blood Culture - Preliminary Blood No Growth after 120 hours Assessment and Plan Plan: -New onset atrial flutter with rapid ventricular rate. Currently on amiodarone and eliquis. 2-D echocardiogram showed normal ejection fraction.. Status post cardioversion. Heart rate is improved. cleared by cardio team for discharge - Left lower extremity cellulitis along with the infected venous ulcer, status post debridement and patient is on antibiotic as per ID -elevated liver enz , hapatitis panel, liver us - AK I multifactorial and secondary to nonsteroidal anti-inflammatory his diuretics which are being held at this time. improved - chronic kidney disease stage III - Chronic venous insufficiency - History of chronic nonhealing ulcer in the left lower extremity - History of sleep apnea and CPAP - patient will need pharmacologic GI and DVT prophylaxis - Generalized deconditioning PT or OT evaluated the patient patient will be discharged to subacute rehabilitation.
--- NOTE | 2019-03-04 02:29 | PN ---
PROGRESS NOTE DATE OF SERVICE: 03/03/2019. REASON FOR FOLLOWUP: Left lower extremity venous stasis ulcer with secondary cellulitis. INTERVAL HISTORY: The patient is currently afebrile. Patient has been breathing comfortably. The patient denies having any chest pain or any cough. No abdominal pain. No to the left leg area. PHYSICAL EXAMINATION: Blood pressure is 143/80 with a pulse of 74, temperature 98.4. He is 97% on room air. General description is a middle-aged male lying in bed in no distress. Respiratory system: Unlabored breathing. Clear to auscultation anteriorly. Heart S1, S2. Regular rate and rhythm. Abdomen soft, no tenderness. Left leg wound currently dressed up. No obvious drainage on the dressing. LABS: BUN of 13, creatinine 1.14. DIAGNOSTIC IMPRESSION AND PLAN: Patient with acute left lower extremity cellulitis for which the patient received about 10 days of IV antibiotic therapy. Recommend to switch him over to a short course of oral doxycycline 100 b.i.d. for about a week with close outpatient followup. Local wound care with Aquacel Silver dressing. MMODL / IJN: [id number] /
[2019-03-04 04:14] LABS: Hepatitis A Antibody IgM Non-Reactive (Non-Reactive); Hepatitis B Core IgM Non-Reactive (Non-Reactive)
[2019-03-04] MEDS: traMADol 50 MG TAB PO PRN ×2 (06:21→19:11)
[2019-03-04 07:51] LABS: Albumin 3.5 g/dL (3.5-5.0); Calcium 9.4 mg/dL (8.4-10.2); Potassium 4.6 mmol/L (3.5-5.1); Total Bilirubin 1.3 mg/dL (0.2-1.3); Total Protein 7.7 g/dL (6.3-8.2)
--- NOTE | 2019-03-04 08:36 | US ---
EXAMINATION TYPE: US liver DATE OF EXAM: 03/04/2019 COMPARISON: NONE CLINICAL HISTORY: 48-year-old male high liver enz. TECHNIQUE: Multiple sonographic images of the right upper quadrant are obtained. 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 Right Kidney: 12.7 x 5.4 x 5.7 cm Pancreas: not seen due to bowel gas Liver: Enlarged and echogenic. Mildly attenuating. Gallbladder: No abnormal distention, wall thickening, pericholecystic fluid, or shadowing calculi. Evidence for sonographic Thorne's sign: no CBD: Upper limits of normal in caliber. Right Kidney: No hydronephrosis IMPRESSION: 1. Hepatomegaly (21.7 cm). The liver appears echogenic and is mildly attenuating suggesting some degr ee of underlying fatty infiltration. 2. Bile duct at the upper limits of normal in caliber (6.0 mm).
[2019-03-04] MEDS: CITALOPRAM HYDROBROMIDE 20 MG TAB PO SCH (08:51)
[2019-03-04] MEDS: APIXABAN 5 MG TAB PO SCH (08:51)
[2019-03-04] MEDS: HYDROcodone/APAP 7.5-325MG 1 EACH TAB PO SCH (08:52)
[2019-03-04] MEDS: PREGABALIN 75 MG CAP PO SCH (08:52)
[2019-03-04] MEDS: CLOTRIMAZOLE 1% CREAM 15 GM TUBE TOPICAL SCH (08:52)
[2019-03-04] MEDS: FAMOTIDINE 20 MG TAB PO SCH (08:52)
[2019-03-04] MEDS: AMIODARONE 200 MG TAB PO SCH (08:52)
[2019-03-04] MEDS: METOPROLOL TARTRATE 50 MG TAB PO SCH (08:52)
--- NOTE | 2019-03-04 12:19 | P.PN ---
Subjective Progress Note Date: 03/04/19 Principal diagnosis: Paroxysmal atrial fibrillation This is a pleasant 48-year-old gentleman who was admitted to the hospital with bilateral lower extremity cellulitis and was found to be in atrial flutter which was uncontrolled on maximize medical treatment. He underwent a SEMAJ and cardioversion yesterday. On follow-up with the patient today, March 042018, the patient is feeling overall better. He is in normal sinus mechanism. He is on amiodarone as well as metoprolol as well as oral anticoagulation. From the cardiovascular standpoint of view, the patient Discharge in the next 24 hours. Objective - Vital Signs Vital signs: Vital Signs Temp 98.5 F 03/04/19 04:12 Pulse 61 03/04/19 04:12 Resp 16 03/04/19 04:12 BP 126/69 03/04/19 04:12 Pulse Ox 98 03/04/19 04:12 Intake & Output 03/03/19 03/04/19 03/04/19 18:59 06:59 18:59 Intake Total 1080 240 Output Total 525 1850 200 Balance 555 -1610 -200 Weight 140.2 kg Intake: Oral 1080 240 Output: Urine 525 1850 200 Other: Voiding Method Urinal # Voids 1 - Constitutional General appearance: Present: no acute distress - Respiratory Respiratory: bilateral: CTA - Cardiovascular Rhythm: regular Heart sounds: normal: S1, S2 - Labs CBC & Chem 7: 03/02/19 05:54 03/04/19 07:09 Labs: Abnormal Lab Results - Last 24 Hours (Table) 03/04/19 Range/Units 07:09 AST 178 H (17-59) U/L ALT 288 H (21-72) U/L Alkaline Phosphatase 153 H (38-126) U/L Microbiology - Last 24 Hours (Table) 02/26/19 08:37 Blood Culture - Final Blood No Growth after 144 hours Assessment and Plan Assessment: Assessment #1 bilateral lower extremity cellulitis #2 atrial flutter with uncontrolled heart rate. Currently the patient is in normal sinus mechanism #3 multiple comorbid conditions Plan #1 continue the current medical regimen #2 possible discharge in the next 24 hours
[2019-03-04] MEDS: SODIUM CHLORIDE 0.9% 1,000 ML IV SCH (12:30)
[2019-03-04 13:11] VITALS: BMI 39.6
--- NOTE | 2019-03-04 14:31 | PN ---
PROGRESS NOTE DATE OF SERVICE: 03/04/2019 REASON FOR FOLLOW UP: Left lower extremity venostasis ulcer and secondary cellulitis. INTERVAL HISTORY: The patient is currently afebrile. Patient is breathing comfortably. At times, did have with problem with taking a real deep breath, but no cough or sputum production. No abdominal pain. No pain to the right leg area. PHYSICAL EXAMINATION: Blood pressure is 126/69, pulse of 51, temperature 98.5. He is 98% on CPAP. General description is a middle-aged male, up in the room in no distress. RESPIRATORY SYSTEM: Unlabored breathing, clear to auscultation anteriorly. HEART: S1, S2. Regular rate and rhythm. ABDOMEN: Soft, no tenderness. EXTREMITIES: The left leg did have some swelling with minimal redness. Wound is dressed up, no obvious drainage on the dressing. LABS: BUN of 16, creatinine 1.14. DIAGNOSTIC IMPRESSION AND PLAN: Patient with left lower extremity, venostasis ulcer secondary to cellulitis, culture with methicillin-resistant Staphylococcus aureus and strep. The patient will finish therapy with oral doxycycline, pneumonia for daptomycin discharge, local wound care with Aquacel Silver dressing and follow up in the office in one week. MMODL / IJN: [id number] /
[2019-03-04 15:05] VITALS: TEMP 99.3
[2019-03-04 15:09] VITALS: BP 127/70; PULSE 62
[2019-03-04] MEDS ORDERED: DOXYCYCLINE 100 MG CAP PO STA (19:02)
== END 2019-03-04 19:50 | disposition home health service (06) | DRG 603 ==
LOC: EC 16:15 → 4SSUR 22:56 → OBSVTOIN 02-20 14:13 → 3SCARD 02-26 10:11
PROVIDERS: ADMIT Hospitalist; ATTEND Hospitalist
PROC: 05HF33Z Insertion of Infusion Device into Left Cephalic Vein, Percutaneous Approach (ICD-10-PCS; 2019-02-24)
PROC: B246ZZ4 Ultrasonography of Right and Left Heart, Transesophageal (ICD-10-PCS; 2019-03-01)
PROC: 5A2204Z Restoration of Cardiac Rhythm, Single (ICD-10-PCS; principal; 2019-03-01 10:00)
DX: L03.116 Cellulitis of left lower limb (principal); I48.3 Typical atrial flutter; L97.829 Non-pressure chronic ulcer of other part of left lower leg with unspecified severity; L03.115 Cellulitis of right lower limb; B95.62 Methicillin resistant Staphylococcus aureus infection as the cause of diseases classified elsewhere; E87.6 Hypokalemia; F41.0 Panic disorder [episodic paroxysmal anxiety]; F41.1 Generalized anxiety disorder; G47.30 Sleep apnea, unspecified; Z99.89 Dependence on other enabling machines and devices; I48.0 Paroxysmal atrial fibrillation; I87.2 Venous insufficiency (chronic) (peripheral); N18.3 Chronic kidney disease, stage 3 (moderate); T39.395A Adverse effect of other nonsteroidal anti-inflammatory drugs [NSAID], initial encounter; Z79.899 Other long term (current) drug therapy; Z82.49 Family history of ischemic heart disease and other diseases of the circulatory system; Z82.5 Family history of asthma and other chronic lower respiratory diseases; E66.9 Obesity, unspecified; Z68.39 Body mass index [BMI] 39.0-39.9, adult; R51 Headache; Z88.6 Allergy status to analgesic agent; Z88.5 Allergy status to narcotic agent; Z86.14 Personal history of Methicillin resistant Staphylococcus aureus infection; R59.0 Localized enlarged lymph nodes; Z82.0 Family history of epilepsy and other diseases of the nervous system; E83.42 Hypomagnesemia; I08.1 Rheumatic disorders of both mitral and tricuspid valves; I70.0 Atherosclerosis of aorta
CPT/HCPCS: 36410; 36415; 76705; 76937; 80048; 80053; 80074; 81001; 83605; 83735; 83930; 83935; 84300; 84439; 84443; 84540; 85025; 85027; 85610; 85730; 87040; 87070; 87077; 87186; 87205; 87502; 92960; 93005; 93306; 93308; 93312; 93320; 93325; 93970; 96361; 96365; 96366; 96367; 99285

== ENCOUNTER → 2019-09-30 | Outpatient (CLI) | payer MEDICAID ==
--- NOTE | 2019-09-30 16:56 | XR ---
EXAMINATION TYPE: XR lumbosacral spine min 4V, XR Hip Bilateral Complete, 2 views each side XR knee complete bilateral, 3 views each side DATE OF EXAM: 09/30/2019 COMPARISON: NONE HISTORY: 48-year-old male increasing chronic pain. [id number], [id number], [id number], [id number], M545 PAIN FINDINGS: Lumbar spine: A 2.3 cm curvilinear density projects at the left paramedian mid abdomen, probable external artifact and should be correlated clinically. Slight levoconvex curvature of the lumbar spine with 5 lumbar type vertebral bodies. Facet arthropath y lower lumbar spine. No pars interarticularis defect. Mild multilevel degenerative disc disease, mor e moderate at L5-S1 with vacuum phenomenon. Vertebral body heights are preserved. Alignment is mainta ined. Hips: There is end-stage degenerative change of the right hip with complete loss of superolateral joint sp yang with [id number] abutment, subchondral sclerosis, and cystic change. Femoral head neck junction osseous excrescences on both sides. Mild superolateral joint space narrowing on the left. No acute fr acture, subluxation, or dislocation. Knees: A weightbearing view of the better assess the degree of mediolateral compartment cartilage and joint space narrowing. Extensor mechanisms are intact. Mild degenerative spurring in the left greater than right patellofemoral compartments. No acute fracture, subluxation, or dislocation. No sizable knee kedar int effusion. IMPRESSION: 1. Lumbar spine: Levoconvex curvature with facet arthropathy and mild multilevel degenerative disc di sease, more moderate at L5-S1. No vertebral compression collapse or malalignment. 2. Lumbar spine: A 2.3 cm curvilinear density at the left paramedian mid abdomen probably represents external artifact. Correlate to exclude some type of retained foreign body or ingested material. 3. Hips: End-stage right hip OA and mild left hip OA. 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 4. Knees: Mild osteoarthritic spurring within the left greater than right patellofemoral compartments . No acute osseous abnormality seen.
== END | disposition home or self-care (01) ==
LOC: RADXRYALE 14:39
PROVIDERS: ATTEND Physician Assistant Medical
DX: M51.37 Other intervertebral disc degeneration, lumbosacral region (principal); M46.96 Unspecified inflammatory spondylopathy, lumbar region; M43.8X6 Other specified deforming dorsopathies, lumbar region; M16.0 Bilateral primary osteoarthritis of hip; M17.0 Bilateral primary osteoarthritis of knee
CPT/HCPCS: 72110; 73521

== ENCOUNTER 2019-10-24 21:24 | Inpatient (IN) | payer MEDICAID ==
[2019-10-24] MEDS ORDERED: MORPHINE SULFATE 4 MG/ML SYRINGE IV STA (21:48)
[2019-10-24] MEDS ORDERED: SODIUM CHLORIDE 0.9% 500 ML 500 ML IV STA (21:48)
[2019-10-24 22:12] LABS: Basophils # (A) 0.1 k/uL (0-0.2); Basophils % (A) 2 %; Eosinophils # (A) 0.2 k/uL (0-0.7); Eosinophils % (A) 3 %; HCT 37.6 % (39.0-53.0); HGB 13.9 gm/dL (13.0-17.5); Hyperchromasia Slight; Lymphocytes # (A) 1.5 k/uL (1.0-4.8); Lymphocytes % (A) 21 %; MCHC 36.9 g/dL (31.0-37.0); MCV 86.5 fL (80.0-100.0); Mean Platelet Volume 8.3; Monocytes # (A) 0.3 k/uL (0-1.0); Monocytes % (A) 4 %; Neutrophils # (A) 4.9 k/uL (1.3-7.7); Neutrophils % (A) 68 %; Platelet Count 212 k/uL (150-450); RBC 4.34 m/uL (4.30-5.90); RDW 12.7 % (11.5-15.5); WBC 7.2 k/uL (3.8-10.6)
[2019-10-24 22:30] LABS: ALT 20 U/L (4-49); AST 28 U/L (17-59); African American GFR (CKD) >90 (>60 ml/min/1.73 sqM); Albumin 4.7 g/dL (3.5-5.0); Alkaline Phosphatase 100 U/L (38-126); Anion Gap 12 mmol/L; Blood Urea Nitrogen 19 mg/dL (9-20); C Reactive Protein 36.4 mg/L (<10.0); Calcium 9.9 mg/dL (8.4-10.2); Carbon Dioxide 24 mmol/L (22-30); Chloride 105 mmol/L (98-107); Glucose 124 mg/dL (74-99); Non-African American GFR(CKD) >90 (>60 ml/min/1.73 sqM); Potassium 3.7 mmol/L (3.5-5.1); Sodium 141 mmol/L (137-145); Total Bilirubin 0.9 mg/dL (0.2-1.3); Total Protein 8.5 g/dL (6.3-8.2)
[2019-10-24] MEDS ORDERED: methylPREDNISolone SOD SUCCI 125 MG/2 ML VIAL IV STA (22:38)
[2019-10-24 23:00] LABS: Erythrocyte Sedimentation Rate 35 mm/hr (0-15)
--- NOTE | 2019-10-24 23:19 | CT ---
EXAMINATION TYPE: CT brain wo con DATE OF EXAM: 10/24/2019 COMPARISON: None HISTORY: Headache and Sinus Pain CT DLP: 645 mGycm Automated exposure control for dose reduction was used. Ventricles have normal size. There is no mass effect nor midline shift. There is no sign of intracran ial hemorrhage. There is opacification left maxillary sinus with fluid level. The calvarium is intact . IMPRESSION: Negative CT scan of the brain. Left maxillary sinusitis. Minimal ethmoid sinusitis.
--- NOTE | 2019-10-24 23:26 | CT ---
EXAMINATION TYPE: CT sinus wo con DATE OF EXAM: 10/24/2019 COMPARISON: None multiple axial sections were obtained from the level of the bottom of the maxilla to the top of the frontal sinuses with no contrast. HISTORY: Headache and Sinus Pain CT DLP: 645 mGycm Automated exposure control for dose reduction was used. There is some mucosal thickening in the anterior ethmoid and frontal sinuses. There is complete opaci fication left maxillary sinus with fluid level. I see no focal bone destruction. Orbital margins are intact. The maxilla is intact. Sphenoid sinus appears normal. There is fairly normal aeration of the right maxillary sinus. There is mucosal thickening at the left ostiomeatal complex. There is a bony d efect involving the lateral aspect of the floor of the bony orbit on the left side that is probably d evelopmental. IMPRESSION: There is ethmoid frontal and left maxillary sinusitis. No fracture seen.
--- NOTE | 2019-10-25 00:01 | ED ---
General Adult HPI - General Source: patient, RN notes reviewed, old records reviewed Mode of arrival: ambulatory Limitations: no limitations <Deng Martinez - Last Filed: 10/25/19 00:42> <Karina Weinstein - Last Filed: 11/01/19 00:37> - General Chief complaint: Headache Stated complaint: Headache Time Seen by Provider: 10/24/19 21:33 - History of Present Illness Initial comments: 48-year-old male patient passed no history of leg ulcer secondary to poor vasculature presents for chief complaint of left temporal headache for 5 days. Patient reports that he also had some mild blurred vision in his left eye. Also reports pain behind his left eye and his left maxillary sinus. Denies regular headaches at baseline. Denies rapid onset, denies any other complaints. Systemic: Pt denies fatigue, fever/chills, rash. Pt denies weakness, night sweats, weight loss. Neuro: Pt denies headache, visual disturbances, syncope or pre-syncope. HEENT: Pt denies ocular discharge or irritation, otalgia, rhinorrhea, pharyng itis or notable lymphadenopathy. Cardiopulmonary: Pt denies chest pain, SOB, heart palpitations, dyspnea on exertion. Abdominal/GI: Pt denies abdominal pain, n/v/d. : Pt denies dysuria, burning w/ urination, frequency/urgency. Denies new onset urinary or bowel incontinence. MSK: Pt denies myalgia, loss of strength or function in extremities. Neuro: Pt denies new onset weakness, paresthesias. (Deng Martinez) - Related Data Home Medications Medication Instructions Recorded Confirmed Furosemide [Lasix] 20 mg PO BID 10/01/18 10/25/19 Testosterone Cypionate 100 mg IM WEEKLY 10/01/18 10/25/19 [Depo-Testosterone] Ciclopirox Olamine [Ciclopirox 1 applic TOPICAL BID 02/19/19 10/25/19 0.77% Topical Susp.] Gabapentin [Neurontin] 300 mg PO HS 10/25/19 10/25/19 HYDROcodone/APAP 7.5-325MG [[place] 1 tab PO HS 10/25/19 10/25/19 7.5-325] HYDROcodone/APAP 7.5-325MG [[place] 2 tab PO QAM 10/25/19 10/25/19 7.5-325] Previous Rx's Medication Instructions Recorded Apixaban [Eliquis] 5 mg PO BID #60 tab 03/04/19 Metoprolol Tartrate [Lopressor] 50 mg PO BID #60 tab 03/04/19 Pantoprazole [Protonix] 40 mg PO BENIGNO #30 tablet. 10/28/19 predniSONE 10 mg PO DIRECTED #200 tab 10/28/19 Allergies Allergy/AdvReac Type Severity Reaction Status Date / Time acetaminophen [From Lortab] Allergy Itching Verified 10/25/19 08:46 hydrocodone [From Lortab] Allergy Itching Verified 10/25/19 08:46 vancomycin Allergy Itching Verified 10/25/19 08:46 Review of Systems ROS Other: All systems not noted in ROS Statement are negative. <Deng Martinez - Last Filed: 10/25/19 00:42> ROS Other: All systems not noted in ROS Statement are negative. <Karina Weinstein - Last Filed: 11/01/19 00:37> ROS Statement: Those systems with pertinent positive or pertinent negative responses have been documented in the HPI. Past Medical History Past Medical History: Skin Disorder, Sleep Apnea/CPAP/BIPAP, Vascular Disorder Additional Past Medical History / Comment(s): has cpap, wound cristiano legs- goes to wound center History of Any Multi-Drug Resistant Organisms: MRSA Date of last positivie culture/infection: 02/21/19 MDRO Source:: left leg Past Surgical History: Tonsillectomy Additional Past Surgical History / Comment(s): radio ablations cristiano legs, deviated septum repair Past Anesthesia/Blood Transfusion Reactions: Previous Problems w/ Anesthesia, Family History of Problems w/ Anesthesia Additional Past Anesthesia/Blood Transfusion Reaction / Comment(s): difficult intubation d/t small airway per pt. mother also difficult airway Past Psychological History: No Psychological Hx Reported Smoking Status: Never smoker Past Alcohol Use History: Occasional Past Drug Use History: None Reported - Past Family History Mother Family Medical History: Asthma Father Family Medical History: Dementia, Hypertension <Deng Martinez - Last Filed: 10/25/19 00:42> General Exam Limitations: no limitations <Deng Martinez - Last Filed: 10/25/19 00:42> - General Exam Comments Initial Comments: Constitutional: NAD, AOX3, Pt has pleasant affect. HEENT: NC/AT, trachea midline, neck supple, no lymphadenopathy. Posterior pharynx non erythematous, without exudates. External ears appear normal, without discharge. Mucous membranes moist. Eyes PERRLA, EOM intact. There is no scleral icterus. No pallor noted. Cardiopulmonary: RRR, no murmurs, rubs or gallops, no JVD noted. Lungs CTAB in anterior and posterior mckeon. No peripheral edema. Abdominal exam: Abdomen soft and non-distended. Abdomen non-tender to palpation in all 4 quadrants. Bowel sounds active in LLQ. No hepatosplenomegaly. No ecchymosis Neuro: CN II-XII intact. No nuchal rigidity. No raccon eyes, no jarvis sign, no hemotympanum. No cervical spinal tenderness. Left temporal region mildly tender to palpation, no palpable cord, no skin changes. Right confucianism nontender. MSK: No posterior calf tenderness bilaterally, homans sign negative bilaterally. Posterior tibialis and radial pulse +2 bilaterally. Sensation intact in upper and lower extremities. Full active ROM in upper and lower extremities, 5/5 stregnth. (Deng Martinez) Course Vital Signs 10/24/19 10/25/19 21:27 00:30 Temperature 97.9 F Pulse Rate 88 85 Respiratory 18 18 Rate Blood Pressure 136/82 117/65 O2 Sat by Pulse 98 98 Oximetry Medical Decision Making - Lab Data Result diagrams: 10/24/19 21:55 10/24/19 21:55 <Deng Martinez - Last Filed: 10/25/19 00:42> - Lab Data Result diagrams: 10/28/19 07:41 10/28/19 07:41 <Karina Weinstein - Last Filed: 11/01/19 00:37> - Medical Decision Making 48-year-old male patient passed no history of leg ulcer secondary to poor vasculature presents for chief complaint of left temporal headache for 5 days. Patient reports that he also had some mild blurred vision in his left eye. Also reports pain behind his left eye and his left maxillary sinus. Denies regular headaches at baseline. Denies rapid onset, denies any other complaints. Patient vital signs stable, afebrile. Physical exam didn't display left temporal region mild tenderness to palpation. No palpable cord noted. No skin changes. Visual acuity left side was 20/50, visual acute right-sided was 20/25. Laboratory investigations revealed mildly elevated ESR, CRP. No leukocytosis, CT brain and sinuses displayed ethmoid frontal and left maxillary sinusitis. Case was discussed with turning physician Dr. Weinstein who discussed case with vascular surgeon Dr. Guzman in regards to doing a temporal artery biopsy for possible temporal arteritis. Dr. Guzman exhibited case and will evaluate patient tomorrow for possible temporal artery biopsy. Patient did admitted. Patient initiated on high-dose steroid treatment. Patient felt much improved upon admission. (Deng Martinez) I was available for consultation in the emergency department. The history and physical exam were done by the midlevel provider. I was consulted for this patients care. I reviewed the case with the midlevel provider and based on their presentation of the patient, I agree with the assessment, medical decision making and plan of care as documented. I evaluated the patient myself and due to reported visual disturbances, I consulted Dr. Marrero. He requests medicine admission and agrees to be on consult for possible biopsy. The patient was admitted to [facility]. Chart was dictated using Pzoom dictation software. Attempts were made to correct any dictation errors however some typographical errors may persist. (Karina Weinstein) - Lab Data Lab Results 10/24/19 10/24/19 10/25/19 Range/Units 21:55 21:55 13:39 WBC 7.2 (3.8-10.6) k/uL RBC 4.34 (4.30-5.90) m/uL Hgb 13.9 (13.0-17.5) gm/dL Hct 37.6 L (39.0-53.0) % MCV 86.5 (80.0-100.0) fL MCH 32.0 (25.0-35.0) pg MCHC 36.9 (31.0-37.0) g/dL RDW 12.7 (11.5-15.5) % Plt Count 212 (150-450) k/uL Neutrophils % 68 % Lymphocytes % 21 % Monocytes % 4 % Eosinophils % 3 % Basophils % 2 % Neutrophils # 4.9 (1.3-7.7) k/uL Lymphocytes # 1.5 (1.0-4.8) k/uL Monocytes # 0.3 (0-1.0) k/uL Eosinophils # 0.2 (0-0.7) k/uL Basophils # 0.1 (0-0.2) k/uL Hyperchromasia Slight ESR 35 H (0-15) mm/hr Sodium 141 (137-145) mmol/L Potassium 3.7 (3.5-5.1) mmol/L Chloride 105 (98-107) mmol/L Carbon Dioxide 24 (22-30) mmol/L Anion Gap 12 mmol/L BUN 19 (9-20) mg/dL Creatinine 0.96 (0.66-1.25) mg/dL Est GFR (CKD-EPI)AfAm >90 (>60 ml/min/1.73 sqM) Est GFR (CKD-EPI)NonAf >90 (>60 ml/min/1.73 sqM) Glucose 124 H (74-99) mg/dL POC Glucose (mg/dL) (75-99) mg/dL POC Glu Billing Rep ID Calcium 9.9 (8.4-10.2) mg/dL Total Bilirubin 0.9 (0.2-1.3) mg/dL AST 28 (17-59) U/L ALT 20 (4-49) U/L Alkaline Phosphatase 100 (38-126) U/L C-Reactive Protein 36.4 H (<10.0) mg/L Total Protein 8.5 H (6.3-8.2) g/dL Albumin 4.7 (3.5-5.0) g/dL Urine Color Yellow Urine Appearance Clear (Clear) Urine pH 7.0 (5.0-8.0) Ur Specific [place] 1.014 (1.001-1.035) Urine Protein Negative (Negative) Urine Glucose (UA) 4+ H (Negative) Urine Ketones Negative (Negative) Urine Blood Small H (Negative) Urine Nitrite Negative (Negative) Urine Bilirubin Negative (Negative) Urine Urobilinogen <2.0 (<2.0) mg/dL Ur Leukocyte Esterase Negative (Negative) Urine RBC 10 H (0-5) /hpf 10/25/19 10/25/19 10/25/19 Range/Units 14:58 16:57 20:57 WBC (3.8-10.6) k/uL RBC (4.30-5.90) m/uL Hgb (13.0-17.5) gm/dL Hct (39.0-53.0) % MCV (80.0-100.0) fL MCH (25.0-35.0) pg MCHC (31.0-37.0) g/dL RDW (11.5-15.5) % Plt Count (150-450) k/uL Neutrophils % % Lymphocytes % % Monocytes % % Eosinophils % % Basophils % % Neutrophils # (1.3-7.7) k/uL Lymphocytes # (1.0-4.8) k/uL Monocytes # (0-1.0) k/uL Eosinophils # (0-0.7) k/uL Basophils # (0-0.2) k/uL Hyperchromasia ESR (0-15) mm/hr Sodium (137-145) mmol/L Potassium (3.5-5.1) mmol/L Chloride (98-107) mmol/L Carbon Dioxide (22-30) mmol/L Anion Gap mmol/L BUN (9-20) mg/dL Creatinine (0.66-1.25) mg/dL Est GFR (CKD-EPI)AfAm (>60 ml/min/1.73 sqM) Est GFR (CKD-EPI)NonAf (>60 ml/min/1.73 sqM) Glucose (74-99) mg/dL POC Glucose (mg/dL) 168 H 254 H (75-99) mg/dL POC Glu Billing Rep ID Prachi, Kelley Tejada, Jeannie Calcium (8.4-10.2) mg/dL Total Bilirubin (0.2-1.3) mg/dL AST (17-59) U/L ALT (4-49) U/L Alkaline Phosphatase (38-126) U/L C-Reactive Protein 35.2 H (<10.0) mg/L Total Protein (6.3-8.2) g/dL Albumin (3.5-5.0) g/dL Urine Color Urine Appearance (Clear) Urine pH (5.0-8.0) Ur Specific [place] (1.001-1.035) Urine Protein (Negative) Urine Glucose (UA) (Negative) Urine Ketones (Negative) Urine Blood (Negative) Urine Nitrite (Negative) Urine Bilirubin (Negative) Urine Urobilinogen (<2.0) mg/dL Ur Leukocyte Esterase (Negative) Urine RBC (0-5) /hpf 10/26/19 10/26/19 10/26/19 Range/Units 06:50 06:56 06:56 WBC 10.2 (3.8-10.6) k/uL RBC 4.46 (4.30-5.90) m/uL Hgb 13.8 (13.0-17.5) gm/dL Hct 39.3 (39.0-53.0) % MCV 88.2 (80.0-100.0) fL MCH 31.0 (25.0-35.0) pg MCHC 35.1 (31.0-37.0) g/dL RDW 13.0 (11.5-15.5) % Plt Count 252 (150-450) k/uL Neutrophils % 90 % Lymphocytes % 8 % Monocytes % 2 % Eosinophils % 0 % Basophils % 0 % Neutrophils # 9.1 H (1.3-7.7) k/uL Lymphocytes # 0.8 L (1.0-4.8) k/uL Monocytes # 0.2 (0-1.0) k/uL Eosinophils # 0.0 (0-0.7) k/uL Basophils # 0.0 (0-0.2) k/uL Hyperchromasia ESR (0-15) mm/hr Sodium 140 (137-145) mmol/L Potassium 4.7 (3.5-5.1) mmol/L Chloride 106 (98-107) mmol/L Carbon Dioxide 24 (22-30) mmol/L Anion Gap 10 mmol/L BUN 19 (9-20) mg/dL Creatinine 0.85 (0.66-1.25) mg/dL Est GFR (CKD-EPI)AfAm >90 (>60 ml/min/1.73 sqM) Est GFR (CKD-EPI)NonAf >90 (>60 ml/min/1.73 sqM) Glucose 158 H (74-99) mg/dL POC Glucose (mg/dL) 146 H (75-99) mg/dL POC Glu Billing Rep ID Closs, Maile Calcium 9.7 (8.4-10.2) mg/dL Total Bilirubin (0.2-1.3) mg/dL AST (17-59) U/L ALT (4-49) U/L Alkaline Phosphatase (38-126) U/L C-Reactive Protein (<10.0) mg/L Total Protein (6.3-8.2) g/dL Albumin (3.5-5.0) g/dL Urine Color Urine Appearance (Clear) Urine pH (5.0-8.0) Ur Specific [place] (1.001-1.035) Urine Protein (Negative) Urine Glucose (UA) (Negative) Urine Ketones (Negative) Urine Blood (Negative) Urine Nitrite (Negative) Urine Bilirubin (Negative) Urine Urobilinogen (<2.0) mg/dL Ur Leukocyte Esterase (Negative) Urine RBC (0-5) /hpf 10/26/19 10/26/19 10/26/19 Range/Units 11:51 15:19 17:04 WBC (3.8-10.6) k/uL RBC (4.30-5.90) m/uL Hgb (13.0-17.5) gm/dL Hct (39.0-53.0) % MCV (80.0-100.0) fL MCH (25.0-35.0) pg MCHC (31.0-37.0) g/dL RDW (11.5-15.5) % Plt Count (150-450) k/uL Neutrophils % % Lymphocytes % % Monocytes % % Eosinophils % % Basophils % % Neutrophils # (1.3-7.7) k/uL Lymphocytes # (1.0-4.8) k/uL Monocytes # (0-1.0) k/uL Eosinophils # (0-0.7) k/uL Basophils # (0-0.2) k/uL Hyperchromasia ESR (0-15) mm/hr Sodium (137-145) mmol/L Potassium (3.5-5.1) mmol/L Chloride (98-107) mmol/L Carbon Dioxide (22-30) mmol/L Anion Gap mmol/L BUN (9-20) mg/dL Creatinine (0.66-1.25) mg/dL Est GFR (CKD-EPI)AfAm (>60 ml/min/1.73 sqM) Est GFR (CKD-EPI)NonAf (>60 ml/min/1.73 sqM) Glucose (74-99) mg/dL POC Glucose (mg/dL) 178 H 142 H 182 H (75-99) mg/dL POC Glu Billing Rep HARDEEP Ferguson, Maile Ferguson, Maile Ferguson, Maile Calcium (8.4-10.2) mg/dL Total Bilirubin (0.2-1.3) mg/dL AST (17-59) U/L ALT (4-49) U/L Alkaline Phosphatase (38-126) U/L C-Reactive Protein (<10.0) mg/L Total Protein (6.3-8.2) g/dL Albumin (3.5-5.0) g/dL Urine Color Urine Appearance (Clear) Urine pH (5.0-8.0) Ur Specific [place] (1.001-1.035) Urine Protein (Negative) Urine Glucose (UA) (Negative) Urine Ketones (Negative) Urine Blood (Negative) Urine Nitrite (Negative) Urine Bilirubin (Negative) Urine Urobilinogen (<2.0) mg/dL Ur Leukocyte Esterase (Negative) Urine RBC (0-5) /hpf 10/26/19 10/27/19 10/27/19 Range/Units 20:26 06:59 07:05 WBC 10.2 (3.8-10.6) k/uL RBC 4.36 (4.30-5.90) m/uL Hgb 13.4 (13.0-17.5) gm/dL Hct 38.7 L (39.0-53.0) % MCV 88.8 (80.0-100.0) fL MCH 30.7 (25.0-35.0) pg MCHC 34.5 (31.0-37.0) g/dL RDW 13.1 (11.5-15.5) % Plt Count 233 (150-450) k/uL Neutrophils % 88 % Lymphocytes % 9 % Monocytes % 2 % Eosinophils % 0 % Basophils % 0 % Neutrophils # 9.0 H (1.3-7.7) k/uL Lymphocytes # 1.0 (1.0-4.8) k/uL Monocytes # 0.2 (0-1.0) k/uL Eosinophils # 0.0 (0-0.7) k/uL Basophils # 0.0 (0-0.2) k/uL Hyperchromasia ESR (0-15) mm/hr Sodium (137-145) mmol/L Potassium (3.5-5.1) mmol/L Chloride (98-107) mmol/L Carbon Dioxide (22-30) mmol/L Anion Gap mmol/L BUN (9-20) mg/dL Creatinine (0.66-1.25) mg/dL Est GFR (CKD-EPI)AfAm (>60 ml/min/1.73 sqM) Est GFR (CKD-EPI)NonAf (>60 ml/min/1.73 sqM) Glucose (74-99) mg/dL POC Glucose (mg/dL) 166 H 149 H (75-99) mg/dL POC Glu Billing Rep HARDEEP PachecotoneAlberta Amy Calcium (8.4-10.2) mg/dL Total Bilirubin (0.2-1.3) mg/dL AST (17-59) U/L ALT (4-49) U/L Alkaline Phosphatase (38-126) U/L C-Reactive Protein (<10.0) mg/L Total Protein (6.3-8.2) g/dL Albumin (3.5-5.0) g/dL Urine Color Urine Appearance (Clear) Urine pH (5.0-8.0) Ur Specific [place] (1.001-1.035) Urine Protein (Negative) Urine Glucose (UA) (Negative) Urine Ketones (Negative) Urine Blood (Negative) Urine Nitrite (Negative) Urine Bilirubin (Negative) Urine Urobilinogen (<2.0) mg/dL Ur Leukocyte Esterase (Negative) Urine RBC (0-5) /hpf 10/27/19 Range/Units 07:05 WBC (3.8-10.6) k/uL RBC (4.30-5.90) m/uL Hgb (13.0-17.5) gm/dL Hct (39.0-53.0) % MCV (80.0-100.0) fL MCH (25.0-35.0) pg MCHC (31.0-37.0) g/dL RDW (11.5-15.5) % Plt Count (150-450) k/uL Neutrophils % % Lymphocytes % % Monocytes % % Eosinophils % % Basophils % % Neutrophils # (1.3-7.7) k/uL Lymphocytes # (1.0-4.8) k/uL Monocytes # (0-1.0) k/uL Eosinophils # (0-0.7) k/uL Basophils # (0-0.2) k/uL Hyperchromasia ESR (0-15) mm/hr Sodium 141 (137-145) mmol/L Potassium 4.5 (3.5-5.1) mmol/L Chloride 107 (98-107) mmol/L Carbon Dioxide 26 (22-30) mmol/L Anion Gap 8 mmol/L BUN 20 (9-20) mg/dL Creatinine 0.99 (0.66-1.25) mg/dL Est GFR (CKD-EPI)AfAm >90 (>60 ml/min/1.73 sqM) Est GFR (CKD-EPI)NonAf 88 (>60 ml/min/1.73 sqM) Glucose 147 H (74-99) mg/dL POC Glucose (mg/dL) (75-99) mg/dL POC Glu Billing Rep ID Calcium 9.5 (8.4-10.2) mg/dL Total Bilirubin (0.2-1.3) mg/dL AST (17-59) U/L ALT (4-49) U/L Alkaline Phosphatase (38-126) U/L C-Reactive Protein (<10.0) mg/L Total Protein (6.3-8.2) g/dL Albumin (3.5-5.0) g/dL Urine Color Urine Appearance (Clear) Urine pH (5.0-8.0) Ur Specific [place] (1.001-1.035) Urine Protein (Negative) Urine Glucose (UA) (Negative) Urine Ketones (Negative) Urine Blood (Negative) Urine Nitrite (Negative) Urine Bilirubin (Negative) Urine Urobilinogen (<2.0) mg/dL Ur Leukocyte Esterase (Negative) Urine RBC (0-5) /hpf Disposition Is patient prescribed a controlled substance at d/c from ED?: No <Deng Martinez - Last Filed: 10/25/19 00:42> <Karina Weinstein - Last Filed: 11/01/19 00:37> Clinical Impression: Sinusitis, Temporal headache Disposition: ADMITTED IP TO THIS HOSP Condition: Serious
[2019-10-25] MEDS ORDERED: MORPHINE SULFATE 4 MG/ML SYRINGE IV STA (00:13)
[2019-10-25] MEDS ORDERED: AMOXIC-POT CLAV 875-125MG 1 EACH TAB PO STA (00:17)
[2019-10-25] MEDS ORDERED: SODIUM CHLORIDE 0.9% IVPB ONE (00:30)
[2019-10-25] MEDS ORDERED: METHYLPREDNISOLONE SOD SUCC IVPB ONE (00:30)
[2019-10-25] MEDS ORDERED: NALOXONE 0.4 MG/ML 1 ML VIAL IV PRN (00:43)
[2019-10-25] MEDS: SODIUM CHLORIDE 0.9% 1,000 ML IV SCH ×2 (01:42→14:51)
[2019-10-25] MEDS ORDERED: APIXABAN 5 MG TAB PO STA (10:28)
--- NOTE | 2019-10-25 10:31 | P.GSCN ---
History of Present Illness Consult date: 10/25/19 Reason for Consult: Possible temporal arteritis and thus need for temporal artery biopsy. History of present illness: Patient is a 48-year-old male who presented with a week long history of left eye discomfort and discomfort along the temporal region on the left. He described his discomfort as a 9 on the scale of 1-10 upon arrival and now this discomfort has significantly diminished although has not completely resolved. He denies any previous similar symptoms. He has a history of a detached retina. This was repaired. He does use corrective lenses. He was last seen by his sugar chipper machine operator approximately 2-3 months ago and outside of the need for a new corrective lens prescription no significant abnormality was identified per patie nt. Patient denies any trauma to the area. CAT scan performed in the emergency room demonstrated evidence of the ethmoid as well as maxillary sinusitis on the left. Past medical history significant for venous insufficiency. Also has a history of atrial flutter for which he is currently is anticoagulated with Eliquis. Impression: The patient may have temporal arteritis however his symptoms may also because by his sinusitis. Prior to any potential biopsy the patient would need to be taken off his Eliquis. Ideally both otolaryngology and neurology consultations and recommendations would be appropriate prior to any biopsy. Await their recommendations in this regard. Past Medical History Past Medical History: Atrial Flutter, Eye Disorder, Hypertension, Osteoarthritis (OA), Pneumonia, Skin Disorder, Sleep Apnea/CPAP/BIPAP, Vascular Disorder Additional Past Medical History / Comment(s): has cpap, wound cristiano legs- goes to wound center, had a detached retina in 1992 that was repaired in the mid , vericose veins History of Any Multi-Drug Resistant Organisms: MRSA Year Discovered:: 02/21/19 MDRO Source:: left leg Past Surgical History: Tonsillectomy Additional Past Surgical History / Comment(s): cardioversion, radio ablations cristiano legs, deviated septum repair, 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 mother also difficult airway Past Psychological History: No Psychological Hx Reported Smoking Status: Never smoker Past Alcohol Use History: Occasional Past Drug Use History: None Reported - Past Family History Mother Family Medical History: Asthma, Pneumonia Additional Family Medical History / Comment(s): diverticulitis with bowel resection, Father Family Medical History: Dementia, Hearing Disorder / Deafness, Hypertension Medications and Allergies Home Medications Medication Instructions Recorded Confirmed Type Furosemide [Lasix] 20 mg PO BID 10/01/18 10/25/19 History Testosterone Cypionate 100 mg IM WEEKLY 10/01/18 10/25/19 History [Depo-Testosterone] Ciclopirox Olamine [Ciclopirox 1 applic TOPICAL BID 02/19/19 10/25/19 History 0.77% Topical Susp.] Apixaban [Eliquis] 5 mg PO BID #60 tab 03/04/19 10/25/19 Rx Metoprolol Tartrate [Lopressor] 50 mg PO BID #60 tab 03/04/19 10/25/19 Rx Gabapentin [Neurontin] 300 mg PO HS 10/25/19 10/25/19 History HYDROcodone/APAP 7.5-325MG [[place] 1 tab PO HS 10/25/19 10/25/19 History 7.5-325] HYDROcodone/APAP 7.5-325MG [[place] 2 tab PO QAM 10/25/19 10/25/19 History 7.5-325] Allergies Allergy/AdvReac Type Severity Reaction Status Date / Time acetaminophen [From Lortab] Allergy Itching Verified 10/25/19 08:46 hydrocodone [From Lortab] Allergy Itching Verified 10/25/19 08:46 vancomycin Allergy Itching Verified 10/25/19 08:46 Surgical - Exam Osteopathic Statement: *. No significant issues noted on an osteopathic structural exam other than those noted in the History and Physical/Consult. Vital Signs Temp Pulse Resp BP Pulse Ox 97.9 F 88 18 136/82 98 10/24/19 21:27 10/24/19 21:27 10/24/19 21:27 10/24/19 21:27 10/24/19 21:27 Results - Labs 10/24/19 21:55 10/24/19 21:55 Abnormal Lab Results - Last 24 Hours (Table) 10/24/19 10/24/19 Range/Units 21:55 21:55 Hct 37.6 L (39.0-53.0) % ESR 35 H (0-15) mm/hr Glucose 124 H (74-99) mg/dL C-Reactive Protein 36.4 H (<10.0) mg/L Total Protein 8.5 H (6.3-8.2) g/dL Diabetes panel 10/24/19 Range/Units 21:55 Sodium 141 (137-145) mmol/L Potassium 3.7 (3.5-5.1) mmol/L Chloride 105 (98-107) mmol/L Carbon Dioxide 24 (22-30) mmol/L BUN 19 (9-20) mg/dL Creatinine 0.96 (0.66-1.25) mg/dL Glucose 124 H (74-99) mg/dL Calcium 9.9 (8.4-10.2) mg/dL AST 28 (17-59) U/L ALT 20 (4-49) U/L Alkaline Phosphatase 100 (38-126) U/L Total Protein 8.5 H (6.3-8.2) g/dL Albumin 4.7 (3.5-5.0) g/dL Calcium panel 10/24/19 Range/Units 21:55 Calcium 9.9 (8.4-10.2) mg/dL Albumin 4.7 (3.5-5.0) g/dL Pituitary panel 10/24/19 Range/Units 21:55 Sodium 141 (137-145) mmol/L Potassium 3.7 (3.5-5.1) mmol/L Chloride 105 (98-107) mmol/L Carbon Dioxide 24 (22-30) mmol/L BUN 19 (9-20) mg/dL Creatinine 0.96 (0.66-1.25) mg/dL Glucose 124 H (74-99) mg/dL Calcium 9.9 (8.4-10.2) mg/dL Adrenal panel 10/24/19 Range/Units 21:55 Sodium 141 (137-145) mmol/L Potassium 3.7 (3.5-5.1) mmol/L Chloride 105 (98-107) mmol/L Carbon Dioxide 24 (22-30) mmol/L BUN 19 (9-20) mg/dL Creatinine 0.96 (0.66-1.25) mg/dL Glucose 124 H (74-99) mg/dL Calcium 9.9 (8.4-10.2) mg/dL Total Bilirubin 0.9 (0.2-1.3) mg/dL AST 28 (17-59) U/L ALT 20 (4-49) U/L Alkaline Phosphatase 100 (38-126) U/L Total Protein 8.5 H (6.3-8.2) g/dL Albumin 4.7 (3.5-5.0) g/dL
[2019-10-25] MEDS: AMOXIC-POT CLAV 875-125MG 1 EACH TAB PO SCH ×2 (10:36→20:58)
[2019-10-25] MEDS: METOPROLOL TARTRATE 50 MG TAB PO SCH ×2 (10:36→20:58)
[2019-10-25] MEDS: MORPHINE SULFATE 4 MG/ML SYRINGE IV PRN ×2 (10:36→21:10)
[2019-10-25] MEDS: FUROSEMIDE 20 MG TAB PO SCH ×2 (10:44→20:58)
[2019-10-25] MEDS: CLOTRIMAZOLE 1% CREAM 15 GM TUBE TOPICAL SCH ×2 (12:09→20:58)
[2019-10-25 16:15] LABS: Appearance,Urine Clear (Clear); Bilirubin,Urine Negative (Negative); Blood,Urine Small (Negative); Color,Urine Yellow; Glucose,Urine (UA) 4+ (Negative); Ketones,Urine Negative (Negative); Leukocyte Esterase,Urine Negative (Negative); Nitrite,Urine Negative (Negative); Protein,Urine Negative (Negative); RBC,Urine 10 /hpf (0-5); Specific Gravity,Urine 1.014 (1.001-1.035); Urobilinogen,Urine <2.0 mg/dL (<2.0)
[2019-10-25 16:58] LABS: Glucose,Whole Blood 168 mg/dL (75-99)
[2019-10-25] MEDS: BUTALB/APAP/CAFF 50-325-40MG TAB PO PRN (17:13)
[2019-10-25] MEDS: INSULIN ASPART (NovoLOG) 100 UNIT/ML VIAL SQ SCH ×2 (17:13→21:10)
--- NOTE | 2019-10-25 18:08 | HP ---
HISTORY AND PHYSICAL DATE OF SERVICE: 10/25/2019 CHIEF COMPLAINT: Headache. HISTORY OF PRESENT ILLNESS: This 48-year-old gentleman with a past medical history of multiple medical problems including atrial flutter, history of hypertension, DJD, history of pneumonia, history of vascular disorder of the leg, history of chronic cellulitis process, being followed by Dr. Peng in the outpatient setting is complaining of severe headache, the headache is mostly situated on the left side of the head and left side of the eye, which was intolerable according to him and the patient came to [facility] and admitted to the hospital for further evaluation and treatment. The patient did have some headache during the previous admission, which the patient rated as only mild to moderate intensity which improved significantly. A cardioversion showed only aortic sclerosis without any stenosis, moderate mitral regurgitation was also noted. After admission, the patient had a sinus CT scan, brain CT scan which was negative and possible temporal arteritis was also considered. Dr. Guzman was consulted for possible temporal biopsy. Neurology and ENT consultation underway also. The ESR is elevated to 35 and CRP was elevated 36.4, normal is less than 10. The total protein is 8.5. There is no history of fever, rigors or chills. No history of headache, loss of consciousness or seizures. Patient also complains of minimal visual abnormalities on the left eye also. PAST MEDICAL HISTORY: History of cellulitis, history of atrial flutter, hypertension, DJD, history of sleep apnea, history of tonsillectomy. MEDICATIONS: Prior home medications are: 1. Testosterone 100 mg IM weekly. 2. Lopressor 50 mg p.o. b.i.d. 3. [place] 2 tablets q.a.m. and 1 tab q.h.s. 4. Neurontin 300 mg q.h.s. 5. Lasix 20 mg p.o. b.i.d. 6. Ciclopirox 1 application b.i.d. 7. Eliquis 5 mg p.o. b.i.d. ALLERGIES: LORTAB AND VANCOMYCIN. FAMILY HISTORY: History of asthma, pneumonia, history of diverticulitis with bowel resection. SOCIAL HISTORY: No history of smoking. Occasional alcohol intake. REVIEW OF SYSTEMS: ENT: As mentioned earlier. CARDIOVASCULAR: No angina or palpitations. RESPIRATION no cough or hemoptysis. GI as mentioned earlier. no dysuria or hematuria. NERVOUS SYSTEM: No numbness or weakness. ALLERGIES/IMMUNOLOGY: No asthma or hayfever. MUSCULOSKELETAL as mentioned earlier. HEMATOLOGY/ONCOLOGY: No history of anemia. ENDOCRINE: No history of diabetes or hypothyroidism. CONSTITUTIONAL: As mentioned earlier. DERMATOLOGY: As mentioned earlier. PSYCHIATRY as mentioned. RHEUMATOLOGY: Negative. PHYSICAL EXAMINATION: Alert and oriented times three. Pulse 84. Blood pressure 157/94, respiration 12, temperature 98 degrees, pulse ox 97% on room air. HEENT: Conjunctivae normal. Oral mucosa moist. NECK is no jugular venous distention. No carotid bruit. No lymph node enlargement. CARDIOVASCULAR: S1-S2 muffled. No S3, no S4. RESPIRATORY: Breath sounds diminished in the bases. No rhonchi. No crackles. ABDOMEN: Soft, obese, nontender. No mass palpable. LEGS: Minimal edema. Changes of chronic cellulitis also present. Chronic venous stasis disease and some hyperpigmentation also present. NERVOUS SYSTEM: Higher functions as mentioned earlier. Moves all four limbs. No focal motor or sensory deficits. LYMPHATICS: No lymph nodes palpable in the neck, axillae or groin. SKIN: No ulcer, no rash and no bleeding. JOINTS: No active deforming arthropathy. Examination of the left jew with some tenderness over the temporal arteries present. The patient is grossly normal. ASSESSMENT: 1. Left side severe headache, possible acute temporal arteritis. 2. History of possible migraine. 3. Increased ESR and CRP. 4. History of atrial flutter. 5. Hypertension. 6. Degenerative joint disease. 7. History of pneumonia. 8. Sleep apnea. 9. Tonsillectomy. 10.Obesity with body mass index 41.7. 11.FULL CODE. RECOMMENDATIONS AND DISCUSSION: In this 48-year-old gentleman who presented with multiple complex medical issues, at this time, I recommend to continue the current medication. Continue symptomatic treatment. Otherwise, I would continue with high-dose IV steroids. Recommend ENT and the Neurology consultation is requested by Dr. Guzman. Otherwise, resume the home medications. Prognosis guarded because of multiple complex medical issues. Further recommendations to follow. We will hold the Eliquis for now. Continue to monitor. MMODL / IJN: [id number] /
[2019-10-25 20:58] LABS: Glucose,Whole Blood 254 mg/dL (75-99)
[2019-10-25] MEDS: ALPRAZolam 0.25 MG TAB PO PRN (20:58)
[2019-10-25] MEDS: GABAPENTIN 300 MG CAP PO SCH (20:58)
[2019-10-25] MEDS: TEMAZEPAM 15 MG CAP PO PRN (23:50)
[2019-10-26] MEDS: BUTALB/APAP/CAFF 50-325-40MG TAB PO PRN ×3 (06:13→17:57)
[2019-10-26] MEDS: ALPRAZolam 0.25 MG TAB PO PRN ×2 (06:13→20:44)
[2019-10-26 06:52] LABS: Glucose,Whole Blood 146 mg/dL (75-99)
[2019-10-26 08:15] LABS: Basophils % (A) 0 %; Eosinophils % (A) 0 %; HCT 39.3 % (39.0-53.0); HGB 13.8 gm/dL (13.0-17.5); Lymphocytes # (A) 0.8 k/uL (1.0-4.8); Lymphocytes % (A) 8 %; MCHC 35.1 g/dL (31.0-37.0); MCV 88.2 fL (80.0-100.0); Mean Platelet Volume 8.8; Monocytes # (A) 0.2 k/uL (0-1.0); Monocytes % (A) 2 %; Neutrophils # (A) 9.1 k/uL (1.3-7.7); Neutrophils % (A) 90 %; Platelet Count 252 k/uL (150-450); RBC 4.46 m/uL (4.30-5.90); WBC 10.2 k/uL (3.8-10.6)
[2019-10-26] MEDS: HYDROcodone/APAP 7.5-325MG 1 EACH TAB PO SCH (08:18)
[2019-10-26] MEDS: FUROSEMIDE 20 MG TAB PO SCH ×2 (08:19→20:44)
[2019-10-26] MEDS: INSULIN ASPART (NovoLOG) 100 UNIT/ML VIAL SQ SCH ×4 (08:19→20:44)
[2019-10-26] MEDS: PANTOPRAZOLE 40 MG TABLET PO SCH (08:19)
[2019-10-26] MEDS: METOPROLOL TARTRATE 50 MG TAB PO SCH ×2 (08:19→20:44)
[2019-10-26] MEDS: CLOTRIMAZOLE 1% CREAM 15 GM TUBE TOPICAL SCH ×2 (08:20→20:59)
[2019-10-26] MEDS: AMOXIC-POT CLAV 875-125MG 1 EACH TAB PO SCH ×2 (08:21→20:44)
[2019-10-26 08:39] LABS: African American GFR (CKD) >90 (>60 ml/min/1.73 sqM); Anion Gap 10 mmol/L; Blood Urea Nitrogen 19 mg/dL (9-20); Calcium 9.7 mg/dL (8.4-10.2); Carbon Dioxide 24 mmol/L (22-30); Chloride 106 mmol/L (98-107); Glucose 158 mg/dL (74-99); Non-African American GFR(CKD) >90 (>60 ml/min/1.73 sqM); Potassium 4.7 mmol/L (3.5-5.1); Sodium 140 mmol/L (137-145)
[2019-10-26 11:54] LABS: Glucose,Whole Blood 178 mg/dL (75-99)
[2019-10-26] MEDS: MORPHINE SULFATE 4 MG/ML SYRINGE IV PRN ×2 (15:21→23:47)
[2019-10-26] MEDS ORDERED: ONDANSETRON 4 MG/2 ML VIAL IVP PRN (15:41)
[2019-10-26 15:50] LABS: Glucose,Whole Blood 142 mg/dL (75-99)
--- NOTE | 2019-10-26 16:27 | PN ---
PROGRESS NOTE DATE OF SERVICE: 10/26/2019. This 48-year-old gentleman who was admitted with significant headache is being evaluated for possible temporal arteritis. The patient has significant tenderness of the temporal artery over the left cheondoism. Dr. Guzman is following the patient closely for possible temporal artery biopsy. The patient is off Eliquis at this time for the same purpose. The patient's ESR and CRP are elevated, random blood sugars also has been elevated. Patient also complaining of some visual difficulties also in the left eye. PAST MEDICAL HISTORY: Reviewed. REVIEW OF SYSTEMS: Cardiovascular system: No angina or palpitations. RESPIRATORY: As mentioned earlier. GI no nausea. no dysuria. Nervous system as mentioned earlier. CURRENT MEDICATIONS: Reviewed and include: 1. Fioricet p.r.n. 2. [place] p.r.n. 3. Augmentin b.i.d. 4. Lotrimin cream. 5. Lasix. 6. Neurontin. 7. Humalog. 8. Solu-Medrol high-dose 500 mg IV b.i.d. 9. Metoprolol 50 mg b.i.d. 10.Morphine. 11.Narcan. 12.Protonix. 13.Restoril. PHYSICAL EXAM: Patient is alert, oriented x3. Pulse 80. Blood pressure 146/86, respirations 16, temperature 98.7, pulse ox 98% on room air. HEENT: Conjunctivae normal. Oral mucosa moist. NECK is no jugular venous distention. No carotid bruit. No lymph node enlargement. CARDIOVASCULAR system: S1, S2 muffled. No S3, no S4. RESPIRATORY: Breath sounds diminished in the bases. No rhonchi. No crackles. ABDOMEN: Soft, nontender. No mass palpable. LEGS: No edema. No swelling. NERVOUS SYSTEM: No focal deficits. Exam of the left cheondoism significant tenderness over the temporal artery. Pulsations present. LAB STUDIES: WBC 10.2. Sodium 140, potassium 4.8. Accu-Cheks 146. ASSESSMENT: 1. Left-sided severe headache, possible acute temporal arteritis. 2. History of possible migraine. 3. Increased ESR, CRP. 4. Increased random blood sugar, possibly secondary to high-dose IV steroids. 5. History of atrial flutter. 6. Hypertension. 7. Degenerative joint disease. 8. Off anticoagulation currently. 9. History of pneumonia. 10.Sleep apnea. 11.History of tonsillectomy. 12.Obesity with body mass index of 41.7. 13.FULL CODE. RECOMMENDATIONS AND DISCUSSION: Recommend to continue current medications, management and symptomatic treatment. Continue the high-dose IV steroids. We will await neurology and ENT evaluations. Otherwise once cleared by them, Dr. Guzman is planning temporal artery biopsy. Continue the IV steroids at this time. Patient closely monitored. Continue with the rest of the medications. Symptomatic treatment. DVT prophylaxis. Proton pump inhibitors. Prognosis guarded because of multiple complex medical issues. Further recommendations to follow. MMODL / IJN: [id number] /
[2019-10-26 17:06] LABS: Glucose,Whole Blood 182 mg/dL (75-99)
[2019-10-26 20:28] LABS: Glucose,Whole Blood 166 mg/dL (75-99)
[2019-10-26] MEDS: GABAPENTIN 300 MG CAP PO SCH (20:44)
[2019-10-26] MEDS: TEMAZEPAM 15 MG CAP PO PRN (23:46)
[2019-10-27 07:19] LABS: Glucose,Whole Blood 149 mg/dL (75-99)
[2019-10-27] MEDS: INSULIN ASPART (NovoLOG) 100 UNIT/ML VIAL SQ SCH ×4 (07:28→21:29)
[2019-10-27] MEDS: PANTOPRAZOLE 40 MG TABLET PO SCH (07:28)
[2019-10-27 07:55] LABS: African American GFR (CKD) >90 (>60 ml/min/1.73 sqM); Anion Gap 8 mmol/L; Blood Urea Nitrogen 20 mg/dL (9-20); Calcium 9.5 mg/dL (8.4-10.2); Carbon Dioxide 26 mmol/L (22-30); Chloride 107 mmol/L (98-107); Glucose 147 mg/dL (74-99); Non-African American GFR(CKD) 88 (>60 ml/min/1.73 sqM); Potassium 4.5 mmol/L (3.5-5.1); Sodium 141 mmol/L (137-145)
[2019-10-27] MEDS: FUROSEMIDE 20 MG TAB PO SCH ×2 (08:33→21:28)
[2019-10-27] MEDS: AMOXIC-POT CLAV 875-125MG 1 EACH TAB PO SCH ×2 (08:33→21:28)
[2019-10-27] MEDS: CLOTRIMAZOLE 1% CREAM 15 GM TUBE TOPICAL SCH ×2 (08:34→22:07)
[2019-10-27] MEDS: HYDROcodone/APAP 7.5-325MG 1 EACH TAB PO SCH (08:34)
[2019-10-27] MEDS: METOPROLOL TARTRATE 50 MG TAB PO SCH ×2 (08:34→21:28)
[2019-10-27 08:45] LABS: Basophils % (A) 0 %; Eosinophils % (A) 0 %; HCT 38.7 % (39.0-53.0); HGB 13.4 gm/dL (13.0-17.5); Lymphocytes % (A) 9 %; MCH 30.7 pg (25.0-35.0); MCHC 34.5 g/dL (31.0-37.0); MCV 88.8 fL (80.0-100.0); Mean Platelet Volume 9.2; Monocytes # (A) 0.2 k/uL (0-1.0); Monocytes % (A) 2 %; Neutrophils % (A) 88 %; Platelet Count 233 k/uL (150-450); RBC 4.36 m/uL (4.30-5.90); RDW 13.1 % (11.5-15.5); WBC 10.2 k/uL (3.8-10.6)
[2019-10-27 11:51] LABS: Glucose,Whole Blood 176 mg/dL (75-99)
[2019-10-27] MEDS: MORPHINE SULFATE 4 MG/ML SYRINGE IV PRN (16:34)
[2019-10-27 16:55] LABS: Glucose,Whole Blood 158 mg/dL (75-99)
[2019-10-27 20:36] LABS: Glucose,Whole Blood 151 mg/dL (75-99)
[2019-10-27] MEDS: GABAPENTIN 300 MG CAP PO SCH (21:28)
[2019-10-27] MEDS: BUTALB/APAP/CAFF 50-325-40MG TAB PO PRN (21:37)
[2019-10-27] MEDS: ALPRAZolam 0.25 MG TAB PO PRN (21:38)
[2019-10-28] MEDS: TEMAZEPAM 15 MG CAP PO PRN (00:29)
[2019-10-28] MEDS: MORPHINE SULFATE 4 MG/ML SYRINGE IV PRN (00:29)
--- NOTE | 2019-10-28 00:38 | PN ---
PROGRESS NOTE DATE OF SERVICE: 10/27/2019 This 48-year-old gentleman who was admitted with headache and possibly temporal arteritis is being closely monitored. No chest pain. No palpitations. No fever. PHYSICAL EXAMINATION: Alert and oriented x3. Pulse 64, blood pressure 123/71, respirations 16, temperature 97.6, pulse ox 94% on room air. HEENT: Conjunctivae normal. NECK: No jugular venous distention. CARDIOVASCULAR SYSTEM: S1, S2 muffled. RESPIRATORY SYSTEM: Breath sounds diminished at the bases. No rhonchi. No crackles. ABDOMEN: Soft. NERVOUS SYSTEM: No focal deficit. EXAMINATION OF THE LEFT TEMPORAL ARTERY: Tenderness present. LABS: WBC 10.2. Glucose noted. ASSESSMENT: 1. Left-sided severe headache; possible acute temporal arteritis. 2. History of possible migraine. 3. Increased ESR and CRP. 4. Increased random blood sugar, possibly secondary to high-dose IV steroids. 5. History of atrial flutter. 6. Hypertension. 7. Degenerative joint disease. 8. Off anticoagulation currently. 9. History of pneumonia. 10.Sleep apnea. 11.History of tonsillectomy. 12.Obesity with body mass index of 41.7. 13.FULL CODE. RECOMMENDATIONS AND DISCUSSION: I recommend to continue current medications, continue with the monitoring, symptomatic treatment. Otherwise at this time I recommend continuing to follow with multiple consultants. Closely follow. Guarded prognosis because of multiple complex medical issues. Further recommendations to follow. MMODL / IJN: [id number] /
[2019-10-28 03:23] VITALS: RESP 16
[2019-10-28 06:42] LABS: Glucose,Whole Blood 136 mg/dL (75-99)
[2019-10-28] MEDS: INSULIN ASPART (NovoLOG) 100 UNIT/ML VIAL SQ SCH ×2 (07:23→12:06)
[2019-10-28 07:45] VITALS: BP 163/93; PULSE 73; TEMP 97.5
[2019-10-28 08:15] LABS: Basophils % (A) 0 %; Eosinophils # (A) 0.1 k/uL (0-0.7); Eosinophils % (A) 1 %; HCT 41.3 % (39.0-53.0); HGB 14.2 gm/dL (13.0-17.5); Lymphocytes # (A) 1.1 k/uL (1.0-4.8); Lymphocytes % (A) 10 %; MCH 30.2 pg (25.0-35.0); MCHC 34.3 g/dL (31.0-37.0); MCV 87.9 fL (80.0-100.0); Mean Platelet Volume 8.8; Monocytes # (A) 0.3 k/uL (0-1.0); Monocytes % (A) 3 %; Neutrophils # (A) 9.2 k/uL (1.3-7.7); Neutrophils % (A) 86 %; Platelet Count 251 k/uL (150-450); RDW 12.7 % (11.5-15.5); WBC 10.7 k/uL (3.8-10.6)
[2019-10-28] MEDS: FUROSEMIDE 20 MG TAB PO SCH (08:29)
[2019-10-28] MEDS: METOPROLOL TARTRATE 50 MG TAB PO SCH (08:29)
[2019-10-28] MEDS: PANTOPRAZOLE 40 MG TABLET PO SCH (08:29)
[2019-10-28] MEDS: HYDROcodone/APAP 7.5-325MG 1 EACH TAB PO SCH (08:29)
[2019-10-28] MEDS: AMOXIC-POT CLAV 875-125MG 1 EACH TAB PO SCH (08:29)
[2019-10-28] MEDS: CLOTRIMAZOLE 1% CREAM 15 GM TUBE TOPICAL SCH (08:30)
[2019-10-28 08:31] LABS: African American GFR (CKD) >90 (>60 ml/min/1.73 sqM); Anion Gap 11 mmol/L; Blood Urea Nitrogen 19 mg/dL (9-20); Calcium 9.5 mg/dL (8.4-10.2); Carbon Dioxide 24 mmol/L (22-30); Chloride 106 mmol/L (98-107); Glucose 156 mg/dL (74-99); Non-African American GFR(CKD) >90 (>60 ml/min/1.73 sqM); Potassium 4.3 mmol/L (3.5-5.1); Sodium 141 mmol/L (137-145)
[2019-10-28 11:39] LABS: Glucose,Whole Blood 127 mg/dL (75-99)
--- NOTE | 2019-10-28 12:24 | P.PN ---
<Gerald Richardsee - Last Filed: 10/28/19 12:11> Subjective Progress Note Date: 10/28/19 Patient seen and evaluated sitting up in bed in no acute distress. Patient reports pain in left side of head/lutheran has improved some since starting the steroids, still has some change in vision in the left eye. Awaiting consults f rom neurology, ENT, and ophthalmology. Objective - Vital Signs Vital signs: Vital Signs Temp 97.5 F L 10/28/19 07:00 Pulse 73 10/28/19 07:00 Resp 16 10/28/19 07:00 BP 163/93 10/28/19 07:00 Pulse Ox 95 10/28/19 07:00 Intake & Output 10/27/19 10/28/19 10/28/19 18:59 06:59 18:59 Intake Total 100 Balance 100 Intake: Intake, IV Titration 100 Amount methylPREDNISolone SOD 100 SUCC 500 mg In Sodium Chloride 0.9% 100 ml @ 100 mls/hr IVPB Q12H SRAVANI Rx#:[id number] Other: Voiding Method Toilet Toilet # Voids 3 2 - Exam General appearance: The patient is alert, oriented, in no acute distress. HET: Head is normocephalic and atraumatic. Neck: Supple without lymphadenopathy. Heart: S1 S2. Regular rate and rhythm. Lungs: No crackles or wheezes are heard. Extremities: Radial pulse 2/4 bilaterally, no swelling or edema. Neurological: No focal deficits. Strength and sensation are grossly intact. - Labs CBC & Chem 7: 10/28/19 07:41 10/28/19 07:41 Labs: Abnormal Lab Results - Last 24 Hours (Table) 10/27/19 10/27/19 10/28/19 Range/Units 16:35 20:35 06:37 WBC (3.8-10.6) k/uL Neutrophils # (1.3-7.7) k/uL Glucose (74-99) mg/dL POC Glucose (mg/dL) 158 H 151 H 136 H (75-99) mg/dL 10/28/19 10/28/19 10/28/19 Range/Units 07:41 07:41 11:25 WBC 10.7 H (3.8-10.6) k/uL Neutrophils # 9.2 H (1.3-7.7) k/uL Glucose 156 H (74-99) mg/dL POC Glucose (mg/dL) 127 H (75-99) mg/dL Assessment and Plan Assessment: Left-sided severe headache; possible acute temporal arteritis History of migraine ethmoid and left maxillary sinusitis per CT of sinuses Plan: Patient seen and evaluated with Dr. Lauren. Dr. Lauren discussed with patient that he would like recommendation from neurology and ENT, pending both consults. At this time there is no recommendation for vascular surgical intervention. Dr. Lauren discussed with patient that he may be discharged and followed up as outpatient, continue steroid treatment. Patient to follow-up in week in office with Dr. Lauren or Dr. Marrero. The above dictated assessment and findings were discussed with Dr. Lauren. The impression and plan of care have been directed as dictated. <Yoshi Lauren - Last Filed: 10/28/19 12:30> Objective - Vital Signs Vital signs: Vital Signs Temp 97.5 F L 10/28/19 07:00 Pulse 73 10/28/19 07:00 Resp 16 10/28/19 07:00 BP 163/93 10/28/19 07:00 Pulse Ox 95 10/28/19 07:00 Intake & Output 10/27/19 10/28/19 10/28/19 18:59 06:59 18:59 Intake Total 100 Balance 100 Intake: Intake, IV Titration 100 Amount methylPREDNISolone SOD 100 SUCC 500 mg In Sodium Chloride 0.9% 100 ml @ 100 mls/hr IVPB Q12H SRAVANI Rx#:[id number] Other: Voiding Method Toilet Toilet # Voids 3 2 - Labs CBC & Chem 7: 10/28/19 07:41 10/28/19 07:41 Labs: Abnormal Lab Results - Last 24 Hours (Table) 10/27/19 10/27/19 10/28/19 Range/Units 16:35 20:35 06:37 WBC (3.8-10.6) k/uL Neutrophils # (1.3-7.7) k/uL Glucose (74-99) mg/dL POC Glucose (mg/dL) 158 H 151 H 136 H (75-99) mg/dL 10/28/19 10/28/19 10/28/19 Range/Units 07:41 07:41 11:25 WBC 10.7 H (3.8-10.6) k/uL Neutrophils # 9.2 H (1.3-7.7) k/uL Glucose 156 H (74-99) mg/dL POC Glucose (mg/dL) 127 H (75-99) mg/dL Assessment and Plan Plan: Long discussion was had with the patient about possible surgical intervention and biopsy. He is improving with steroids and at this time the patient would like to be discharged home and if possible he would like to be treated medically without any surgical intervention. From a vascular standpoint he is okay for discharge but I did discuss with him the possibility of biopsying at a later time potentially could decrease the diagnostic ability of the biopsy which he fully understood. I will discuss with Dr. Thacker about possible discharge.
[2019-10-28] MEDS ORDERED: ARTIFICIAL TEARS-HYPROMELLOSE DROPS 15 ML BTL BOTH EYES PRN (13:17)
[2019-10-28] MEDS ORDERED: TROPICAMIDE 1% OPHTH DROPS 2 ML BTL BOTH EYES ONE (14:00)
[2019-10-28] MEDS ORDERED: PHENYLEPHRINE 2.5% OPHTH DRP 2ML BOTH EYES ONE (14:00)
[2019-10-28] MEDS ORDERED: PROPARACAINE 0.5% OPHTH DROPS 15 ML BTL BOTH EYES ONE (14:00)
--- NOTE | 2019-10-29 01:17 | DS ---
DISCHARGE SUMMARY DATE OF SERVICE: 10/28/2019 FINAL DIAGNOSES: 1. Left-sided severe headache, possible acute temporal arteritis. 2. History of possible migraine. 3. Increased ESR CRP. 4. Increased creatinine. 5. Increased random blood sugar possibly secondary to high-dose IV steroids. 6. History of atrial flutter. 7. Hypertension. 8. History of degenerative joint disease. 9. History of anticoagulation currently. 10.History of pneumonia. 11.History of sleep apnea. 12.History of tonsillectomy. 13.Obesity with body mass index of 41.7. 14.FULL CODE. DISCHARGE DISPOSITION: The patient being discharged in stable condition with guarded prognosis. HISTORY OF PRESENT ILLNESS: This 48-year-old gentleman with past medical history of multiple medical problems admitted with significant headache and tender temporal artery on the left side. The patient treated with high-dose IV steroids. The patient was seen by multiple consultants including vascular surgery and biopsy referred at this time neurology evaluation pending. Otherwise ophthalmological evaluation also pending. Recommended outpatient followup. Patient improved significant. Headache improved. On exam, vitals are stable. Cardiovascular S1, S2. Abdomen soft. Nervous system: No focal deficits. DISCHARGE ADVICE AND MEDICATIONS: 1. Diet is cardiac diet. 2. Activity limited until followup. 3. Follow up with Dr. Peng in 2-3 days. 4. Follow up with Dr. Lauren with vascular surgery in 1 week. 5. Follow up with Dr. Thurman in 1 week. DISCHARGE MEDICATIONS: As follows: 1. Ciclopirox 0.77% 1 application b.i.d. as before. 2. Testosterone as before. 3. Lasix 20 mg p.o. b.i.d. 4. Neurontin 300 mg p.o. q.h.s. 5. [place] 7.5 p.o. q.a.m. 6. Eliquis 5 mg p.o. b.i.d. 7. Lopressor 50 mg p.o. b.i.d. 8. Prednisone taper that will be 60 mg daily for 2 weeks and then 50 mg daily for 2 weeks and then taper in the outpatient setting. 9. Protonix 40 mg p.o. b.i.d. Follow up with Dr. Gan ophthalmology as recommended. MMODL / IJN: [id number] /
== END 2019-10-28 13:41 | disposition home or self-care (01) | DRG 546 ==
LOC: EC 21:24 → 4SSUR 10-25 00:40 → OBSVTOIN 10-27 09:40
PROVIDERS: ADMIT Hospitalist; ATTEND Hospitalist
DX: M31.6 Other giant cell arteritis (principal); I48.92 Unspecified atrial flutter; Z68.41 Body mass index [BMI] 40.0-44.9, adult; I87.2 Venous insufficiency (chronic) (peripheral); E66.9 Obesity, unspecified; G47.30 Sleep apnea, unspecified; I10 Essential (primary) hypertension; I08.0 Rheumatic disorders of both mitral and aortic valves; J32.2 Chronic ethmoidal sinusitis; J32.0 Chronic maxillary sinusitis; M19.90 Unspecified osteoarthritis, unspecified site; R73.9 Hyperglycemia, unspecified; T38.0X5A Adverse effect of glucocorticoids and synthetic analogues, initial encounter; Z79.01 Long term (current) use of anticoagulants; Z79.899 Other long term (current) drug therapy; Z79.891 Long term (current) use of opiate analgesic; Z79.52 Long term (current) use of systemic steroids; Z88.6 Allergy status to analgesic agent; Z88.1 Allergy status to other antibiotic agents; Z88.5 Allergy status to narcotic agent; Z86.14 Personal history of Methicillin resistant Staphylococcus aureus infection; Z87.01 Personal history of pneumonia (recurrent); Z82.49 Family history of ischemic heart disease and other diseases of the circulatory system; Z82.5 Family history of asthma and other chronic lower respiratory diseases; Z82.0 Family history of epilepsy and other diseases of the nervous system; Z84.89 Family history of other specified conditions
CPT/HCPCS: 36415; 70450; 70486; 80048; 80053; 81001; 85025; 85652; 86140; 96361; 96365; 96375; 96376; 99285

== ENCOUNTER 2019-11-05 12:15 | Day surgery (SDC) | payer MEDICAID ==
[2019-11-04 13:52] VITALS: BMI 41.7
[~2019-11-05 12:15] MED LIST: Pre Op ABX Message 1 EACH MISC MISCELLANE ONE
[2019-11-05] MEDS ORDERED: LACTATED RINGERS 1,000 ML IV ONE (12:45)
[2019-11-05 12:47] VITALS: BP 138/73; PULSE 78; RESP 17; TEMP 97.8
[2019-11-05] MEDS ORDERED: ONDANSETRON 4 MG/2 ML VIAL IVP ONE (13:01)
[2019-11-05] MEDS ORDERED: DEXAMETHASONE SOD PHOSPHATE 10 MG/ML 1 ML VIAL IV ONE (13:02)
== END 2019-11-05 14:58 | disposition home health service (06) ==
LOC: OR 12:15
PROVIDERS: ATTEND Surgery
DX: I77.6 Arteritis, unspecified (principal); Z53.9 Procedure and treatment not carried out, unspecified reason; I10 Essential (primary) hypertension; I48.92 Unspecified atrial flutter; G47.33 Obstructive sleep apnea (adult) (pediatric); M26.609 Unspecified temporomandibular joint disorder, unspecified side; K21.9 Gastro-esophageal reflux disease without esophagitis; Z99.89 Dependence on other enabling machines and devices; Z88.5 Allergy status to narcotic agent; Z88.1 Allergy status to other antibiotic agents; Z79.899 Other long term (current) drug therapy; Z79.01 Long term (current) use of anticoagulants; Z79.52 Long term (current) use of systemic steroids; Z98.890 Other specified postprocedural states
CPT/HCPCS: J1100; J2405

== ENCOUNTER → 2019-11-18 | Outpatient (CLI) | payer MEDICAID | END | disposition home or self-care (01) | LOC: LABWHC1 10:29 | PROVIDERS: ATTEND Ophthalmology | DX: M31.6 Other giant cell arteritis (principal) | CPT/HCPCS: 36415; 85652 ==

== ENCOUNTER → 2019-11-27 | Outpatient (CLI) | payer MEDICAID ==
--- NOTE | 2019-11-27 18:09 | US ---
EXAMINATION TYPE: US carotid duplex BILAT DATE OF EXAM: 11/27/2019 COMPARISON: CT CLINICAL HISTORY: I65.23 Occlusion and stenosis of bilateral carotid. Occlusion and stenosis of bilat eral carotid arteries. Sudden vision loss. HTN. EXAM MEASUREMENTS: RIGHT: Peak Systolic Velocity (PSV) cm/sec ----- Right CCA: 80.9 ----- Right ICA: 87.5 ----- Right ECA: 227.5 ICA/CCA ratio: 1.1 RIGHT: End Diastole cm/sec ----- Right CCA: 17.1 ----- Right ICA: 16.0 ----- Right ECA: 35.1 LEFT: Peak Systolic Velocity (PSV) cm/sec ----- Left CCA: 109.4 ----- Left ICA: 121.5 ----- Left ECA: 201.6 ICA/CCA ratio: 1.1 LEFT: End Diastole cm/sec ----- Left CCA: 29.5 ----- Left ICA: 24.1 ----- Left ECA: 36.1 VERTEBRALS (direction of flow): Right Vertebral: Antegrade Left Vertebral: Antegrade Rhythm: Normal IMPRESSION: 1. Negative for hemodynamically-significant ICA stenosis. Intimal thickening seen bilaterally. Minimal plaque seen bilateral bifurcations. 2. Elevated ECA velocities bilaterally. 3. Bilateral antegrade vertebral arterial flow.
--- NOTE | 2019-11-28 14:43 | CONS ---
CONSULTATION This is a 48-year-old gentleman who came to my office yesterday. I was called in by Dr. Gan, the inventory controller for a left upper artery biopsy. The patient has had an episode of loss of vision, left eye with complete recovery and also temporal headache and patient had a stroke workup. CT of the brain was negative for intracranial bleed. Lab finding came back, ESR is 35, and C-reactive protein 36.4, and patient was put on steroid by inventory controller. Patient had a carotid ultrasound, both carotids are found to be patent. PATIENT'S MEDICAL HISTORY: History of obesity, history of sleep apnea. Also, patient has a history of hypertension, degenerative joint disease. PHYSICAL EXAMINATION: Patient was seen. NECK: Supple. Trachea central. Temporal pulses present. Patient now has normal vision. CHEST: Clear to auscultation. ABDOMEN: Soft. Brachial, radial and femoral pulses are present. Discussed with inventory controller and recommended left temporal artery biopsy. The patient is on steroids. Risks and complication are discussed with the patient. Discussed with Dr. Thacker. The patient will be admitted to Dr. Thacker's service and will proceed for a left temporal artery biopsy. MMODL / IJN: [id number] /
== END | disposition home or self-care (01) ==
LOC: RADUSMAIN 17:10
PROVIDERS: ATTEND Surgery Vascular Surgery
DX: I65.23 Occlusion and stenosis of bilateral carotid arteries (principal); I77.89 Other specified disorders of arteries and arterioles
CPT/HCPCS: 93880

== ENCOUNTER 2019-11-29 04:43 | Inpatient (IN) | payer MEDICAID ==
[2019-11-29] MEDS ORDERED: LIDOCAINE 1% INJ 10MG/ML (20 ML MDV) SQ ONE ×2 (07:30→08:46)
[2019-11-29] MEDS ORDERED: PROPOFOL 10 MG/ML 20 ML VIAL IV ONE (07:50)
[2019-11-29] MEDS ORDERED: fentaNYL (PF) 50 MCG/ML 2 ML AMP ONE (07:50)
[2019-11-29] MEDS ORDERED: LIDOCAINE 1% INJ 10MG/ML (20 ML MDV) ONE (07:50)
[2019-11-29] MEDS ORDERED: ceFAZolin 1,000 MG VIAL ONE (07:50)
[2019-11-29] MEDS ORDERED: SUCCINYLCHOLINE CHLORIDE 100 MG/5 ML SYR IV ONE (07:50)
[2019-11-29] MEDS ORDERED: LACTATED RINGERS 1,000 ML IV ONE (07:56)
[2019-11-29 08:14] VITALS: RESP 16
[2019-11-29 09:33] VITALS: BP 143/89; PULSE 72; TEMP 97.7
[2019-11-29 11:40] LABS: Glucose,Whole Blood 121 mg/dL (75-99)
--- NOTE | 2019-11-29 12:04 | OP ---
OPERATIVE REPORT PREOPERATIVE DIAGNOSIS: Temporal arteritis. OPERATION: Left temporal artery biopsy, ANESTHESIA: General. PROCEDURE DESCRIPTION: This patient came with left temporal headache and high sedimentation rate and C- reactive protein. Carotid ultrasound was normal. The patient was scheduled for left temporal artery biopsy. Patient was brought to the operating room. Under anesthesia, left buddhism area was prepped and drapes were applied in a sterile manner. Incision was made at the temporal area, deepened through skin, fat and fascia. Dissection was carried out along the temporal artery. There were some side branches which were ligated. Then proximal and distal was obtained and temporal artery was sent to Pathology. Hemostasis was well controlled and incision was closed with Vicryl and skin closed subcuticularly using Monocryl suture. Dressing was applied. Patient tolerated the procedure well. PLAN: Patient will go home today if it is okay with Internal Medicine. We will follow up on Sunday in the office to check the report from Pathology. MMODL / IJN: [id number] /
[2019-11-29] MEDS ORDERED: HYDROcodone/APAP 7.5-325MG 1 EACH TAB PO PRN (12:33)
[2019-11-29] MEDS ORDERED: IBUPROFEN 800 MG TAB PO PRN (12:33)
[2019-11-29] MEDS ORDERED: CLOTRIMAZOLE 1% CREAM 15 GM TUBE TOPICAL SCH (12:45)
[2019-11-29] MEDS ORDERED: FUROSEMIDE 20 MG TAB PO SCH (12:45)
[2019-11-29] MEDS ORDERED: METOPROLOL TARTRATE 50 MG TAB PO SCH (12:45)
--- NOTE | 2019-11-29 18:24 | HP ---
HISTORY AND PHYSICAL COMBINED HISTORY AND PHYSICAL AND DISCHARGE SUMMARY: CHIEF COMPLAINT: Headache as well as temporal arteritis. HISTORY OF PRESENT ILLNESS: This 48-year-old gentleman with a past medical history of multiple medical problems, including atrial flutter, history of hypertension, history of DJD, history of pneumonia, being followed by Dr. Peng in the outpatient setting, was recently admitted with left-sided headache. The patient was found to have temporal arteritis. Patient was started on IV steroids. Currently patient is on steroids 50 mg p.o. daily. The patient was admitted for temporal artery biopsy which was postponed several times. Dr. Ho performed temporal artery biopsy today. Patient is being closely monitored. There is no history of any fever, rigor or chills. No history of headache, loss of consciousness, seizures, chest pain, palpitations. PAST MEDICAL HISTORY: History of temporal arteritis suspected, DJD, history of pneumonia, history of sleep apnea, tonsillectomy. MEDICATIONS: 1. Prednisone 50 mg daily. 2. Protonix 40 mg p.o. daily. 3. Lopressor 50 mg p.o. b.i.d. 4. Motrin 800 mg t.i.d. p.r.n. 5. [place] 7.5 t.i.d. p.r.n. 6. Neurontin 300 mg at bedtime. 7. Lasix 20 mg p.o. b.i.d. 8. Ciclopirox 1 application b.i.d. 9. Eliquis 5 mg p.o. b.i.d. ALLERGIES: LORTAB AND VANCOMYCIN. FAMILY HISTORY: History of asthma, pneumonia, diverticulitis. SOCIAL HISTORY: No history of smoking. No history of alcohol. REVIEW OF SYSTEMS: ENT: As mentioned earlier. CARDIOVASCULAR SYSTEM: No angina, palpitations. RESPIRATORY SYSTEM: No cough, hemoptysis. GI: No nausea, vomiting, diarrhea. : No dysuria or retention. NERVOUS SYSTEM: No numbness, weakness. ALLERGY/IMMUNOLOGY: No asthma, hayfever. MUSCULOSKELETAL: As mentioned earlier. HEMATOLOGY/ONCOLOGY: No history of anemia. As mentioned earlier. ENDOCRINE: No history of diabetes, hypothyroidism. CONSTITUTIONAL: As mentioned earlier. DERMATOLOGY: Negative. RHEUMATOLOGY: As mentioned earlier. PSYCHIATRY: As mentioned earlier. PHYSICAL EXAMINATION: Patient alert and oriented x3. Pulse 72, blood pressure 143/89, respirations 16, temperature 97.7, pulse ox 94% on room air. HEENT: Conjunctivae normal. Oral mucosa moist. Facial puffiness present. NECK: No jugular venous distention. No carotid bruit. No lymph node enlargement. Left temporal artery minimal tenderness, status post biopsy. CARDIOVASCULAR SYSTEM: S1, S2 muffled. No S3. No S4. RESPIRATORY SYSTEM: Breath sounds diminished at the bases. No rhonchi. No crackles. ABDOMEN: Soft, non-tender. No mass palpable. Obese. LEGS: No edema. No swelling. NERVOUS SYSTEM: Higher functions as mentioned earlier. Moves all 4 limbs. No focal motor or sensory deficit. Vision is normal. LYMPHATICS: No lymph node palpable in neck, axillae or groin. SKIN: No ulcer, rash, bleeding. JOINTS: No active deforming arthropathy. LABS: Glucose 121. ASSESSMENT: 1. Possible acute temporal arteritis, status post temporal artery biopsy. 2. History of possible migraine. 3. Increased ESR, CRP. 4. History of atrial flutter. 5. Anticoagulation with apixaban. 6. Hypertension. 7. History of degenerative joint disease. 8. Sleep apnea. 9. History of varicose veins. 10.History of methicillin-resistant Staphylococcus aeruginosa. 11.Obesity with body mass index of 41.1. RECOMMENDATIONS AND DISCUSSION: This 48-year-old gentleman who presented with multiple complex medical issues, at this time I recommend to continue current medications, continue symptomatic treatment. Continue the home medications. Continue with IV steroids. Also recommend followup with the stamp collector for continued followup. Dr. Peng has ordered an autoimmune workup also. Will continue to monitor. Guarded prognosis because of multiple complex medical issues. Further recommendations to follow. The rest of the recommendations per Dr. Ho, who did the biopsy. MMODL / IJN: [id number] /
[2019-11-29] MEDS ORDERED: GABAPENTIN 300 MG CAP PO SCH (21:00)
[2019-11-30] MEDS ORDERED: PANTOPRAZOLE 40 MG TABLET PO SCH (07:30)
[2019-11-30] MEDS ORDERED: predniSONE 50 MG TAB PO SCH (09:00)
== END 2019-11-29 14:00 | disposition home or self-care (01) | DRG 516 ==
LOC: 4SSUR 05:14
PROVIDERS: ADMIT Hospitalist; ATTEND Hospitalist
PROC: 03BT0ZX Excision of Left Temporal Artery, Open Approach, Diagnostic (ICD-10-PCS; principal; 2019-11-29 08:00)
DX: M31.6 Other giant cell arteritis (principal); I48.92 Unspecified atrial flutter; Z68.41 Body mass index [BMI] 40.0-44.9, adult; E66.9 Obesity, unspecified; G47.30 Sleep apnea, unspecified; I10 Essential (primary) hypertension; Z82.5 Family history of asthma and other chronic lower respiratory diseases; Z87.01 Personal history of pneumonia (recurrent); Z83.79 Family history of other diseases of the digestive system; Z79.52 Long term (current) use of systemic steroids; Z79.899 Other long term (current) drug therapy; Z79.01 Long term (current) use of anticoagulants; G43.909 Migraine, unspecified, not intractable, without status migrainosus
CPT/HCPCS: 88305

== ENCOUNTER → 2019-12-02 | Outpatient (CLI) | payer MEDICAID | END | disposition home or self-care (01) | LOC: LABWHC1 11:47 | PROVIDERS: ATTEND Ophthalmology | DX: M31.6 Other giant cell arteritis (principal) | CPT/HCPCS: 36415; 85652 ==

== ENCOUNTER → 2019-12-09 | Outpatient (CLI) | payer MEDICAID | END | disposition home or self-care (01) | LOC: LABPAT 15:33 | PROVIDERS: ATTEND Orthopaedic Surgery | DX: Z01.812 Encounter for preprocedural laboratory examination (principal) | CPT/HCPCS: 87070 ==

== ENCOUNTER → 2019-12-16 | Outpatient (CLI) | payer MEDICAID ==
[2019-12-16 16:05] LABS: HCT 45.4 % (39.0-53.0); HGB 16.4 gm/dL (13.0-17.5); MCH 32.1 pg (25.0-35.0); Mean Platelet Volume 7.6; Platelet Count 200 k/uL (150-450); RBC 5.11 m/uL (4.30-5.90); RDW 13.1 % (11.5-15.5)
[2019-12-16 18:34] LABS: Erythrocyte Sedimentation Rate 9 mm/hr (0-15)
== END ==
LOC: LABWHC1 14:34
PROVIDERS: ATTEND Ophthalmology
DX: M31.6 Other giant cell arteritis (principal); G45.3 Amaurosis fugax
CPT/HCPCS: 36415; 85027; 85652; 86140

== ENCOUNTER → 2020-01-01 | Outpatient (CLI) | payer MEDICAID ==
[2020-01-01 16:18] LABS: HCT 39.7 % (39.0-53.0); HGB 13.7 gm/dL (13.0-17.5); Hyperchromasia Slight; MCHC 34.5 g/dL (31.0-37.0); MCV 89.7 fL (80.0-100.0); Mean Platelet Volume 8.3; Platelet Count 175 k/uL (150-450); RBC 4.43 m/uL (4.30-5.90); RDW 13.6 % (11.5-15.5); WBC 5.7 k/uL (3.8-10.6)
[2020-01-01 16:28] LABS: INR 0.9 (<1.2); Prothrombin Time 9.9 sec (9.0-12.0)
[2020-01-01 16:35] LABS: ALT 25 U/L (4-49); AST 22 U/L (17-59); African American GFR (CKD) >90 (>60 ml/min/1.73 sqM); Albumin 4.4 g/dL (3.5-5.0); Alkaline Phosphatase 72 U/L (38-126); Anion Gap 11 mmol/L; Blood Urea Nitrogen 17 mg/dL (9-20); Calcium 9.6 mg/dL (8.4-10.2); Carbon Dioxide 25 mmol/L (22-30); Chloride 103 mmol/L (98-107); Glucose 118 mg/dL (74-99); Non-African American GFR(CKD) >90 (>60 ml/min/1.73 sqM); Potassium 3.9 mmol/L (3.5-5.1); Sodium 139 mmol/L (137-145); Total Bilirubin 0.8 mg/dL (0.2-1.3); Total Protein 7.1 g/dL (6.3-8.2)
== END | disposition home or self-care (01) ==
LOC: LABPAT 15:07
PROVIDERS: ATTEND Orthopaedic Surgery
DX: Z01.818 Encounter for other preprocedural examination (principal); Z01.812 Encounter for preprocedural laboratory examination; M16.11 Unilateral primary osteoarthritis, right hip
CPT/HCPCS: 80053; 85027; 85610; 85730; 93005

== ENCOUNTER → 2020-01-01 | Outpatient (CLI) | payer MEDICAID ==
--- NOTE | 2020-01-01 15:38 | US ---
EXAMINATION TYPE: US kidneys/renal and bladder DATE OF EXAM: 01/01/2020 COMPARISON: NONE CLINICAL HISTORY: R31.9,HEMATURIA. microscopic hematuria, cloudy urine, no pain, no infection EXAM MEASUREMENTS: Right Kidney: 12.6 x 5.6 x 6.2 cm Left Kidney: 11.6 x 6.6 x 6.3 cm Right Kidney: No hydronephrosis or masses seen Left Kidney: No hydronephrosis or masses seen Bladder: wnl There is no evidence for hydronephrosis at this point in time. No nephrolithiasis is seen. No joanne s are identified. The urinary bladder is anechoic. Bilateral ureteral jets are seen. IMPRESSION: Unremarkable renal ultrasound. No hydronephrosis or nephrolithiasis of either kidney.
== END | disposition home or self-care (01) ==
LOC: RADUSWWP 14:58
PROVIDERS: ATTEND Family Medicine
DX: R31.9 Hematuria, unspecified (principal)
CPT/HCPCS: 76770

== ENCOUNTER → 2020-01-01 | Outpatient (CLI) | payer MEDICAID | END | disposition home or self-care (01) | LOC: LABWHC1 15:03 | PROVIDERS: ATTEND Ophthalmology | DX: M31.6 Other giant cell arteritis (principal) | CPT/HCPCS: 36415; 85652; 86140 ==

== ENCOUNTER 2020-01-06 10:50 | Day surgery (SDC) | payer MEDICAID ==
[2020-01-02 16:04] VITALS: BMI 41.1
[~2020-01-06 10:50] MED LIST changes: +HYDROmorphone 0.5 MG/0.5 ML SYRINGE IVP PRN; +LIDOCAINE 1% (10MG/ML) FOR IV START INTRADERMA PRN; +MIDAZOLAM 2 MG/2 ML VIAL IV PRN; +ROPIVACAINE 246.25 MG, EPINEPHrine 0.5 MG, KETOROLAC 30 MG, cloNIDine HCL/PF 80 MCG, WA... MISCELLANE ONE; +TRANEXAMIC ACID 1,000 MG in SODIUM CHLORIDE 0.9% 100 ML IVPB ONE; +fentaNYL (PF) 50 MCG/ML 2 ML AMP IV PRN
[2020-01-06] MEDS: ACETAMINOPHEN TAB 500 MG TAB PO ONE ×2 (11:03→15:45)
[2020-01-06] MEDS: MELOXICAM 7.5 MG TAB PO ONE ×2 (11:03→15:45)
[2020-01-06] MEDS: GABAPENTIN 300 MG CAP PO ONE ×2 (11:03→15:45)
[2020-01-06 11:25] LABS: Glucose,Whole Blood 106 mg/dL (75-99)
[2020-01-06] MEDS: LACTATED RINGERS 1,000 ML IV SCH (11:27)
[2020-01-06] MEDS: DEXAMETHASONE SOD PHOSPHATE 10 MG/ML 1 ML VIAL IV ONE ×2 (11:31→15:45)
[2020-01-06] MEDS: ONDANSETRON 4 MG/2 ML VIAL IVP ONE ×2 (11:31→15:46)
[2020-01-06] MEDS ORDERED: TRANEXAMIC ACID 1,000 MG/10 ML VIAL ONE (12:05)
[2020-01-06] MEDS ORDERED: MIDAZOLAM 2 MG/2 ML VIAL ONE (12:05)
[2020-01-06] MEDS ORDERED: KETAMINE 10 MG/ML 20 ML VIAL ONE (12:05)
[2020-01-06] MEDS ORDERED: fentaNYL (PF) 50 MCG/ML 2 ML AMP ONE (12:05)
[2020-01-06] MEDS ORDERED: PROPOFOL 10 MG/ML 20 ML VIAL IV ONE (12:05)
[2020-01-06] MEDS ORDERED: SODIUM CHLORIDE 0.9% 100 ML BAG ONE (12:05)
[2020-01-06] MEDS ORDERED: ceFAZolin 3,000 MG in SODIUM CHLORIDE 0.9% IRRIGATIO 3,000 ML IRRIGATION ONE (12:10)
[2020-01-06] MEDS ORDERED: SODIUM CHLORIDE 0.9% 100 ML with ceFAZolin 3,000 MG IV ONE ×2 (12:21)
[2020-01-06] MEDS ORDERED: LACTATED RINGERS 1,000 ML IV ONE (13:17)
--- NOTE | 2020-01-06 13:51 | P.OP ---
Date of Procedure: 01/06/20 Preoperative Diagnosis: Severe osteoarthritis right hip Postoperative Diagnosis: Severe osteoarthritis right hip Procedure(s) Performed: Right total hip arthroplasty with a direct anterior approach Implants: Bowman and nephew Polarstem size 6 standard Bowman & Nephew R3, 3 hole acetabular shell, 54 mm Bowman [employer] Nephew reflection 6.5 mm cancellus screw, 20 mm 2 [employer]man [employer] Nephew R3, XLPE 20 acetabular liner Bowman & Nephew Oxinium femoral head 36 m, +0 All components were press-fit. The articulation is Oxinium on polyethylene. Anesthesia: spinal Surgeon: Jd Murrieta Estimated Blood Loss (ml): 300 (115 mL returned with Cell Saver) Pathology: other (Femoral head) Condition: stable Disposition: PACU Indications for Procedure: After failure of conservative treatment we discussed the surgical and nonsurgical treatment options at length. Patient wishes to proceed with a total hip arthroplasty with a direct anterior approach. Complications specific to this procedure were discussed at length, including but not limited to infection, leg length discrepancy, dislocation, and nerve injury. Patient is aware of all these complications and informed consent was obtained Operative Findings: The operative findings are consistent with severe osteoarthritis of the right hip Description of Procedure: Patient was seen and evaluated in the preoperative area, consent was reviewed, and the surgical site was marked with a skin marker. Patient was then brought to the operating room and given prophylactic antibiotics intravenously. 1 g of Tranexamic acid was also given. A spinal anesthetic was administered by the anesthesia department. The patient was then placed on the [place] table with the bony prominences well-padded. The hip area was then prepped and draped in usual sterile fashion. A universal timeout was then performed, which confirmed the patient's name, surgical site, ALLERGIES, and procedure being performed. Next the incision site was located at 1 cm distal and 1 cm lateral to the anterior superior iliac spine. The skin and subcutaneous tissues were sharply incised. Incision was carefully dissected down to the fascia overlying the tensor fascia jontahon muscle. This fascia was then incised in line with the incision. Next, using blunt finger dissection, the tensor fascia jonathon muscle was dissected off its investing fascia. The muscle was then carefully retracted laterally with a cobra retractor over the lateral neck of the femur. Next, the circumflex vessels were identified and cauterized using the AquaMantis device. The anterior hip capsule was then exposed. The capsule was then opened and an inverted T fashion. Cobra retractors were then placed intracapsularly. The proximal femur was then visualized. The femoral neck was then osteotomized appropriate level above the lesser trochanter. Small amount of traction was placed with the [place] table. A small wedge of bone was then removed from the remaining femoral head. Next, using a corkscrew femoral head was easily removed from the acetabulum. On gross visual inspection, the femoral head had complete loss of articular cartilage in multiple periarticular osteophytes. Attention was then turned to the acetabulum. the acetabulum was exposed and any remaining labrum was excised. Sequential reaming of the acetabulum was performed using fluoroscopic guidance. When the appropriate size was reached, a trial was then placed. The position and fit of the trial was checked with fluoroscopy. The trial was then removed. Then, using fluoroscopic guidance, the final implant was impacted at 20 of anteversion and 40 of abduction, and fully seated in the acetabulum. 2 screws were then placed in the acetabulum. Again fluoroscopy was used to check position of the screws. Next, the liner was then impacted, with a 20 elevated liner located in the anterior superior quadrant. Component locking was confirmed. Attention was then directed to the femur. With the aid of the [place] table, the femur was externally rotated to approximately 130, extended, and abducted under the opposite leg. A side hook was then placed under the proximal femur, and the side hook elevator was used to elevate the proximal femur. Retractors were then placed. A capsular release was performed, as well as a release of the conjoined tendon, which afforded excellent visualization of the proximal femur. Next, a box osteotome was used to lateralize the proximal femur. A sizer hand was then used to locate the femoral canal. Sequential broaching was then performed with appropriate size which afforded excellent fixation in the proximal femur. A trial was then placed with appropriate head and neck, and the hip was gently reduced with the aid of the [place] table. Fluoroscopy was then used to check p osition of the components, as well as to ensure equal leg lengths. The hip was then gently dislocated and the trials were then removed. Final implants were then impacted and the hip was again reduced. Final fluoroscopic x-rays confirmed that the components were in anatomic position, as well as equal leg lengths. The hip was also taken through range of motion, and found to be stable. The hip was then copiously irrigated with antibiotic solution with pulsatile lavage. The hip was then irrigated with Irrisept solution. The soft tissues were then injected with a ropivacaine solution, which consisted of 246.25 mg of ropivacaine, 0.5 mg of epinephrine, 30 mg of Toradol, 80 g of clonidine, and 48.45 mL of sterile water, for a total of 100 mL of fluid injected. A second dose of 1 g of Tranexamic acid was also given. the fascia was then closed with 2-0 strata fix suture. The subcutaneous tissue was closed with 3-0 Vicryl. The subcuticular tissue was closed with 3-0 strata fix suture. The skin was then closed with Dermabond glue and a sterile silver dressing. The patient was then transferred to the recovery room in stable condition. The bilingual sales assistant SIMÓN Cintron was required due to the complexity of surgery, and the need for skilled neurosurgical nurse practitioner for positioning, draping, exposure, retraction, and closure of the wound.
[2020-01-06] MEDS ORDERED: hydrOXYzine PAMOATE 25 MG CAP PO PRN (14:07)
[2020-01-06] MEDS ORDERED: MAGNESIUM HYDROXIDE 2,400 MG/10 ML CUP PO PRN (14:07)
[2020-01-06] MEDS ORDERED: HYDROcodone/APAP 7.5-325MG 1 EACH TAB PO PRN (14:07)
[2020-01-06] MEDS ORDERED: NALOXONE 0.4 MG/ML 1 ML VIAL IV PRN (14:07)
[2020-01-06] MEDS ORDERED: ONDANSETRON 4 MG/2 ML VIAL IVP PRN (14:07)
[2020-01-06] MEDS ORDERED: TEMAZEPAM 15 MG CAP PO PRN (14:07)
[2020-01-06] MEDS ORDERED: HYDROmorphone 1 MG/ML 1 ML SYRINGE IVP PRN (14:07)
[2020-01-06] MEDS ORDERED: HYDROmorphone 0.5 MG/0.5 ML SYRINGE IVP PRN ×2 (14:07)
--- NOTE | 2020-01-06 14:09 | XR ---
EXAMINATION TYPE: XR Hip Limited RT, FL guidance operating room DATE OF EXAM: 01/06/2020 CLINICAL HISTORY: Fluoroscopic documentation during right hip arthroplasty TECHNIQUE: Fluoroscopy. COMPARISON: None. FINDINGS: Fluoroscopic guidance was provided during procedure performed by Dr. Murrieta. A total of 51 seconds of fluoroscopic time was utilized during the procedure and 2 spot images was acquired dur ing right hip arthroplasty. IMPRESSION: As Above.
[2020-01-06] MEDS ORDERED: LACTATED RINGERS 1,000 ML IV SCH (14:15)
--- NOTE | 2020-01-06 14:31 | XR ---
EXAMINATION TYPE: XR Hip Limited RT DATE OF EXAM: 01/06/2020 CLINICAL HISTORY: Right hip pain and osteoarthritis. TECHNIQUE: Single AP portable view of right hip is obtained immediately postoperatively. COMPARISON: None. FINDINGS: Metallic hardware from right hip arthroplasty is seen and appears satisfactory in alignment and position. There is evidence of recent surgery with subcutaneous gas noted laterally. IMPRESSION: Metallic hardware from right hip arthroplasty is satisfactory in position.
[2020-01-06] MEDS: ceFAZolin 3 GM in SODIUM CHLORIDE 0.9% 100 ML IVPB SCH (20:37)
[2020-01-06] MEDS: FUROSEMIDE 20 MG TAB PO SCH (20:38)
[2020-01-06] MEDS: METOPROLOL TARTRATE 50 MG TAB PO SCH (20:38)
[2020-01-06] MEDS: CLOTRIMAZOLE 1% CREAM 15 GM TUBE TOPICAL SCH (20:39)
[2020-01-06] MEDS: HYDROcodone/APAP 7.5-325MG 1 EACH TAB PO PRN (20:48)
[2020-01-06] MEDS ORDERED: SENNOSIDES-DOCUSATE SODIUM 1 EACH TAB PO SCH (21:00)
[2020-01-06] MEDS ORDERED: GABAPENTIN 300 MG CAP PO SCH (21:00)
[2020-01-07 02:41] VITALS: PULSE 78
[2020-01-07] MEDS: ceFAZolin 3 GM in SODIUM CHLORIDE 0.9% 100 ML IVPB SCH (04:05)
[2020-01-07] MEDS: LACTATED RINGERS 1,000 ML IV SCH (04:07)
--- NOTE | 2020-01-07 05:50 | CONS ---
CONSULTATION DATE OF SERVICE: 01/06/2020 REASON FOR CONSULTATION: Advice regarding medical issues including temporal arteritis and other medical issues requested by Dr. Murrieta. HISTORY OF PRESENT ILLNESS: This 49-year-old gentleman with a past medical history of multiple medical problems such as history of atrial flutter, history of DJD, history of pneumonia, history of tonsillectomy, being followed by Dr. Peng in the outpatient setting was previously admitted with severe left-sided headache and temporal arteritis was suspected clinically. Patient was started on high-dose IV steroids. Biopsy was done by Dr. Ho later in the outpatient setting, but did not show any acute abnormality. The patient has taken steroids with significant improvement. A rheumatology consultation ongoing at this time. Currently the patient underwent right total hip joint arthroplasty for severe DJD by Dr. Murrieta. Patient admitted for further evaluation. There is no history of any fevers or rigors. No history of headache, Loss of consciousness or seizures. PAST MEDICAL HISTORY: History of temporal arteritis, history of hypertension, history of DJD, history of atrial flutter, history of sleep apnea. MEDICATIONS: Medications prior to admission include home medications are: 1. Ciclodan 1 application b.i.d. 2. Eliquis 5 mg p.o. b.i.d. 3. Neurontin 300 mg at bedtime. 4. Lasix 20 mg b.i.d. 5. Protonix 40 mg daily. 6. Prednisone 25 mg daily. 7. Hydrocodone 7.5 t.i.d. p.r.n. 8. Lopressor 50 mg p.o. b.i.d. ALLERGIES: Allergies are HYDROCODONE and VANCOMYCIN. FAMILY HISTORY: History of asthma, pneumonia, history of diverticulitis. SOCIAL HISTORY: No history of smoking. No history of alcohol intake. REVIEW OF SYSTEMS: ENT: As mentioned earlier. CARDIOVASCULAR SYSTEM: No angina versus palpitations. RESPIRATORY SYSTEM: No cough or hemoptysis. GI: No nausea. : No dysuria. NERVOUS SYSTEM: No numbness or weakness. ALLERGY/IMMUNOLOGY: No asthma. MUSCULOSKELETAL: As mentioned earlier. HEMATOLOGY/ONCOLOGY: No history of anemia. ENDOCRINE: No history of diabetes or hypothyroidism. RHEUMATOLOGY: As mentioned earlier. CONSTITUTIONAL: As mentioned earlier. DERMATOLOGY: Negative. PSYCHIATRY: As mentioned earlier. PHYSICAL EXAMINATION: The patient is alert oriented x3. The pulse is 54, blood pressure 110/63, respiration 18, temperature 97.5, pulse ox 99% on room air. HEENT: Conjunctivae normal. Oral mucosa moist. NECK: No jugular venous distention. No carotid bruit. No lymph node enlargement. No thyroid enlargement. CARDIOVASCULAR: S1, S2 muffled. No S3, no S4. RESPIRATORY: Breath sounds diminished at the bases. No rhonchi, no crackles. ABDOMEN: Soft, nontender. No mass palpable. LEGS: Status post right total hip joint arthroplasty. NERVOUS SYSTEM: Higher function as mentioned. Moves all 4 limbs. No focal motor or sensory deficits. LYMPHATICS: No lymphadenopathy of the neck, axillae or groin. SKIN: No ulcer, rash or bleeding. JOINTS: As mentioned earlier. LABS: Glucose is 106, otherwise preop labs CBC within normal limits and chemistries also within normal except high glucose. Cholesterol is 219. ASSESSMENT: 1. Status post right total hip joint arthroplasty for severe degenerative joint disease. 2. History of recently diagnosed temporal arteritis on steroids. 3. Atrial flutter. 4. Degenerative joint disease. 5. Hypertension. 6. History of pneumonia. 7. Sleep apnea. 8. History of detached retina. 9. History of chronic yeast infection. 10.History of methicillin-resistant Staphylococcus aureus. 11.History of tonsillectomy. 12.Obesity with body mass index 41.9. 13.FULL CODE. RECOMMENDATIONS AND DISCUSSION: This 49-year-old gentleman who presented with multiple complex medical issues, we will monitor the patient closely. Continue the current medications. Continue symptomatic treatment. I would recommend resume the home medications and otherwise DVT prophylaxis, incentive spirometry. We will follow the patient closely with you. The patient is started on apixaban 5 mg p.o. b.i.d. and incentive spirometry. The patient may be asked to follow up with Dr. Peng closely after discharge. Pain management per Orthopedics. We will follow the patient closely with you. Thank you Dr. Murrieta for letting us participate in the care of this patient. MMODL / IJN: [id number] /
[2020-01-07] MEDS ORDERED: PANTOPRAZOLE 40 MG TABLET PO SCH (07:30)
[2020-01-07 07:33] LABS: Basophils % (A) 0 %; Eosinophils # (A) 0.1 k/uL (0-0.7); Eosinophils % (A) 1 %; HCT 34.3 % (39.0-53.0); HGB 11.6 gm/dL (13.0-17.5); Lymphocytes # (A) 1.6 k/uL (1.0-4.8); Lymphocytes % (A) 20 %; MCH 30.8 pg (25.0-35.0); MCHC 33.9 g/dL (31.0-37.0); Mean Platelet Volume 8.4; Monocytes # (A) 0.6 k/uL (0-1.0); Monocytes % (A) 7 %; Neutrophils # (A) 5.4 k/uL (1.3-7.7); Neutrophils % (A) 70 %; Platelet Count 150 k/uL (150-450); Poikilocytosis Slight; RBC 3.77 m/uL (4.30-5.90); RDW 14.4 % (11.5-15.5); WBC 7.7 k/uL (3.8-10.6)
[2020-01-07 07:37] LABS: African American GFR (CKD) >90 (>60 ml/min/1.73 sqM); Anion Gap 6 mmol/L; Blood Urea Nitrogen 21 mg/dL (9-20); Calcium 8.8 mg/dL (8.4-10.2); Carbon Dioxide 29 mmol/L (22-30); Chloride 105 mmol/L (98-107); Glucose 91 mg/dL (74-99); Non-African American GFR(CKD) >90 (>60 ml/min/1.73 sqM); Potassium 3.7 mmol/L (3.5-5.1); Sodium 140 mmol/L (137-145)
[2020-01-07 07:53] VITALS: BP 122/74; RESP 16; TEMP 97.9
[2020-01-07] MEDS: FUROSEMIDE 20 MG TAB PO SCH (08:13)
[2020-01-07] MEDS: METOPROLOL TARTRATE 50 MG TAB PO SCH (08:13)
[2020-01-07] MEDS: HYDROcodone/APAP 7.5-325MG 1 EACH TAB PO PRN (08:14)
[2020-01-07] MEDS: CLOTRIMAZOLE 1% CREAM 15 GM TUBE TOPICAL SCH (08:14)
[2020-01-07] MEDS ORDERED: HYDROcodone/APAP 10-325MG 1 EACH TAB PO PRN ×2 (08:29)
--- NOTE | 2020-01-07 08:31 | P.DS ---
Providers Expected date of discharge: 01/07/20 Attending physician: Jd Murrieta Consults: 01/06/20 14:07 Consult Physician Routine Consulting Provider: Nancy Thacker Consult Reason/Comments: medical management Do you want consulting provider notified?: Yes Primary care physician: Jd Peng - Discharge Diagnosis(es) (1) Status post total hip replacement, right Current Visit: Yes Status: Acute (2) Osteoarthritis of right hip Current Visit: Yes Status: Acute Hospital Course: This is a 49-year-old male with known history of degenerative arthritis of the right hip. The patient presents for evaluation. After discussion and consideration patient elects to proceed with total hip arthroplasty. The patient is seen preoperatively by his primary care physician and cleared for surgery. Patient is admitted to [facility] on 01/06/2020 for right anterior total hip arthroplasty. The procedures performed without complication or sequelae. The patient is doing well postoperatively. Labs and vital signs are stable on d ay of discharge. On day of discharge patient's hip incision is healing well. There is minimal erythema. There is no drainage noted at this time. There is minimal soft tissue swelling to the hip and thigh. Patient has full foot and ankle motion without difficulty or pain. Neurovascular status to the right lower extremity is intact. Patient is discharged to home in good condition. Pertinent Studies: Laboratory Tests 01/07/20 01/07/20 06:42 06:42 WBC 7.7 RBC 3.77 L Hgb 11.6 L Hct 34.3 L BUN 21 H Patient Condition at Discharge: Stable Plan - Discharge Summary Discharge Rx Participant: No New Discharge Prescriptions: New Sennosides-Docusate Sodium [Senokot-S] 2 tab PO DAILY #30 tablet HYDROcodone/APAP 10-325MG [[place] 10-325] 1 tab PO Q6HR PRN #24 tab PRN Reason: Pain No Action Furosemide [Lasix] 20 mg PO BID Apixaban [Eliquis] 5 mg PO BID #60 tab Metoprolol Tartrate [Lopressor] 50 mg PO BID #60 tab HYDROcodone/APAP 7.5-325MG [[place] 7.5-325] 1 tab PO TID PRN PRN Reason: Pain Gabapentin [Neurontin] 300 mg PO HS predniSONE 25 mg PO DAILY Ciclopirox Olamine Cream [Ciclodan] 1 applic TOPICAL BID Pantoprazole [Protonix] 40 mg PO DAILY Discharge Medication List Furosemide [Lasix] 20 mg PO BID 10/01/18 [History] Apixaban [Eliquis] 5 mg PO BID #60 tab 03/04/19 [Rx] Metoprolol Tartrate [Lopressor] 50 mg PO BID #60 tab 03/04/19 [Rx] Gabapentin [Neurontin] 300 mg PO HS 10/25/19 [History] HYDROcodone/APAP 7.5-325MG [[place] 7.5-325] 1 tab PO TID PRN 10/25/19 [History] predniSONE 25 mg PO DAILY 11/04/19 [History] Ciclopirox Olamine Cream [Ciclodan] 1 applic TOPICAL BID 11/28/19 [History] Pantoprazole [Protonix] 40 mg PO DAILY 11/29/19 [History] HYDROcodone/APAP 10-325MG [[place] 10-325] 1 tab PO Q6HR PRN #24 tab 01/07/20 [Rx] Sennosides-Docusate Sodium [Senokot-S] 2 tab PO DAILY #30 tablet 01/07/20 [Rx] Follow up Appointment(s)/Referral(s): Kavita Lira PAC [REFERRING] - 01/14/20 9:20 am [facility] [NON-STAFF] - As Needed (walker ) [facility], [NON-STAFF] - As Needed Jd Murrieta DO [Doctor of Osteopathic Medicine] - 01/21/20 1:30 pm Patient Instructions/Handouts: Total Hip Replacement (DC), Anterior Hip Replacement (DC) Activity/Diet/Wound Care/Special Instructions: Weightbearing as tolerated with walker Keep dressing in place for 10 days unless saturated Resume Eliquis May shower over dressing Follow up with Dr. Jd Murrieta in 2 weeks. Call [facility] with questions or concerns, Discharge Disposition: HOME WITH HOME HEALTH SERVICES
[2020-01-07] MEDS ORDERED: APIXABAN 5 MG TAB PO SCH (09:00)
[2020-01-07] MEDS ORDERED: predniSONE 50 MG TAB PO SCH (09:00)
--- NOTE | 2020-01-08 08:12 | P.PN ---
Subjective Progress Note Date: 01/07/20 Principal diagnosis: This is a 49-year-old male who was recently admitted for total right hip joint arthroplasty for severe degenerative joint disease with Dr. Murrieta and is bein g closely monitored. Patient has been up and working with physical therapy and able to walk the halls and is likely being discharged today. Patient awaiting to speak with case management about possible home care in the outpatient setting. Currently no reports of chest pain, shortness of breath, or palpitations. Patient is afebrile. No reports of nausea or vomiting and patient has been tolerating diet. Patient states that his pain is well-managed. Objective - Vital Signs Vital signs: Vital Signs Temp 97.9 F 01/07/20 07:00 Pulse 78 01/07/20 08:15 Resp 16 01/07/20 08:15 BP 122/74 01/07/20 07:00 Pulse Ox 99 01/07/20 07:00 Intake & Output 01/06/20 01/07/20 01/07/20 18:59 06:59 18:59 Intake Total 1501 960 Output Total 300 Balance 1201 960 Weight 148 kg Intake: IV 1301 Oral 200 960 Output: Estimated Blood Loss 300 Other: Voiding Method Toilet Toilet # Voids 1 1 - Exam Gen: This is a 49-year-old male sitting up at the side of the bed, awake, alert and oriented 3, well-developed, well-nourished. Temp is 97.9F, pulse is 78, respirations are 16, blood pressure is 122/74, oxygen saturation is 99% on room air. HEENT: Head is atraumatic, normocephalic. Pupils equal, round. Sclerae is anicteric. NECK: Supple. No JVD. No lymphadenopathy. No thyromegaly. LUNGS: Diminished breath sounds at the bases with no wheezing or rhonchi noted. No intercostal retractions. HEART: S1, S2 are muffled ABDOMEN: Soft. Bowel sounds are present. No masses. No tenderness. EXTREMITIES: No pedal edema. No calf tenderness. Status post right total hip joint arthroplasty. NEUROLOGICAL: Patient is awake, alert and oriented x3. Cranial nerves 2 through 12 are grossly intact. - Labs CBC & Chem 7: 01/07/20 06:42 01/07/20 06:42 Labs: Abnormal Lab Results - Last 24 Hours (Table) 01/07/20 01/07/20 Range/Units 06:42 06:42 RBC 3.77 L (4.30-5.90) m/uL Hgb 11.6 L (13.0-17.5) gm/dL Hct 34.3 L (39.0-53.0) % BUN 21 H (9-20) mg/dL Assessment and Plan Assessment: Status post right total hip joint arthroplasty for severe degenerative joint disease History of recently diagnosed temporal arteritis on steroids atrial flutter Degenerative joint disease Hypertension history of pneumonia Sleep apnea history of detached retina history of chronic yeast infection history of MRSA History of tonsillectomy Obesity with body mass index of 41.9 Full code Recommendations and discussion: Echo meant to continue current medications, management, and symptomatic treatment. Recommend continue with home medications. Will continue to closely follow during hospitalization. Patient was initiated on Eliquis 5 mg twice daily and will continue the outpatient setting. Patient instructed and encouraged to continue using incentive spirometer at least 10 times every hour while awake. Patient to continue with physical rehab in the outpatient setting. Case management is working with the patient on possible discharge planning needs and possible Homecare in the outpatient setting. Further recommendations to follow. Patient is planning on discharge today.
== END 2020-01-07 15:41 | disposition home health service (06) ==
LOC: OR 10:50 → 4SSUR 14:36 → OR 01-07 15:41
PROVIDERS: ATTEND Orthopaedic Surgery
DX: M16.11 Unilateral primary osteoarthritis, right hip (principal); I48.3 Typical atrial flutter; I48.0 Paroxysmal atrial fibrillation; Z79.01 Long term (current) use of anticoagulants; I10 Essential (primary) hypertension; M17.0 Bilateral primary osteoarthritis of knee; R51 Headache; I87.2 Venous insufficiency (chronic) (peripheral); G47.30 Sleep apnea, unspecified; E29.1 Testicular hypofunction; G89.29 Other chronic pain; M54.9 Dorsalgia, unspecified; E78.2 Mixed hyperlipidemia; M31.6 Other giant cell arteritis; F32.9 Major depressive disorder, single episode, unspecified; Z86.14 Personal history of Methicillin resistant Staphylococcus aureus infection; Z97.3 Presence of spectacles and contact lenses; Z87.01 Personal history of pneumonia (recurrent); Z98.890 Other specified postprocedural states; Z82.49 Family history of ischemic heart disease and other diseases of the circulatory system; E66.01 Morbid (severe) obesity due to excess calories; Z68.41 Body mass index [BMI] 40.0-44.9, adult; Z79.890 Hormone replacement therapy; Z79.52 Long term (current) use of systemic steroids; Z79.899 Other long term (current) drug therapy; Z88.1 Allergy status to other antibiotic agents
CPT/HCPCS: 97161; 97535; 97165; 86891; 86900; 86901; 80048; 85025; 86850; 88300; 73501; 27130; C1776; J0171; J0690 ×3; J2405; J1885; J1170 ×2; J2795; J0735; J7512

== ENCOUNTER → 2020-02-20 | Outpatient (CLI) | payer MEDICAID | END | disposition home or self-care (01) | LOC: LABWHC1 11:14 | PROVIDERS: ATTEND Ophthalmology | DX: M31.6 Other giant cell arteritis (principal); G45.3 Amaurosis fugax | CPT/HCPCS: 36415; 85652 ==

== ENCOUNTER → 2020-05-08 | Outpatient (CLI) | payer MEDICAID ==
--- NOTE | 2020-05-08 09:11 | CT ---
EXAMINATION TYPE: CT brain wo con DATE OF EXAM: 05/08/2020 COMPARISON: 10/24/2019 HISTORY: Episodic cluster headache. Carotid surgery earlier this year. CT DLP: 1028.[address] of the brain was performed. The ventricles, basal cisterns and sulci overlying the cerebral convexities demonstrate a normal appe arance. There is no evidence for intracranial hemorrhage or sulcal effacement. No mass effects are seen. Osseous calvarium is intact. If symptoms persist consider MRI as clinically warranted. IMPRESSION: 1. No acute intracranial process is seen at this time.
== END | disposition home or self-care (01) ==
LOC: RADCTMAIN 08:34
PROVIDERS: ATTEND Family Medicine
DX: G44.019 Episodic cluster headache, not intractable (principal)
CPT/HCPCS: 70450

== ENCOUNTER → 2020-05-28 | Outpatient (CLI) | payer MEDICAID | END | disposition home or self-care (01) | LOC: LABWHC1 11:46 | PROVIDERS: ATTEND Ophthalmology | DX: G45.3 Amaurosis fugax (principal); M31.6 Other giant cell arteritis | CPT/HCPCS: 36415; 85652; 86140 ==

== ENCOUNTER → 2020-06-10 | Outpatient (CLI) | payer MEDICAID ==
[2020-06-10 19:12] LABS: T4, Free (Free Thyroxine) 1.2 ng/dL (0.80-1.80)
== END | disposition home or self-care (01) ==
LOC: LABWHC1 12:21
PROVIDERS: ATTEND Nurse Practitioner Family
DX: E55.9 Vitamin D deficiency, unspecified (principal); R41.3 Other amnesia
CPT/HCPCS: 36415; 82306; 82607; 84439; 84443; 84481

== ENCOUNTER → 2020-07-30 | Outpatient (CLI) | payer MEDICAID | END | disposition home or self-care (01) | LOC: LABWHC1 13:49 | PROVIDERS: ATTEND Ophthalmology | DX: M31.6 Other giant cell arteritis (principal); G45.3 Amaurosis fugax; G44.1 Vascular headache, not elsewhere classified | CPT/HCPCS: 36415; 85652; 86140 ==

== ENCOUNTER → 2020-11-12 | Outpatient (CLI) | payer MEDICAID | END | disposition home or self-care (01) | LOC: LABWHC1 13:08 | PROVIDERS: ATTEND Ophthalmology | DX: M31.6 Other giant cell arteritis (principal); G44.1 Vascular headache, not elsewhere classified | CPT/HCPCS: 36415; 85652; 86140 ==

== ENCOUNTER → 2021-07-25 | Outpatient (CLI) | payer MEDICAID ==
--- NOTE | 2021-07-25 09:11 | XR ---
EXAMINATION TYPE: XR chest 2V DATE OF EXAM: 07/25/2021 COMPARISON: Chest x-ray March 22, 2016 HISTORY: Worsening shortness of breath TECHNIQUE: Frontal and lateral views of the chest are obtained. FINDINGS: Background Chronic emphysematous change redemonstrated. There is no suspicious new focal ai r space opacity, pleural effusion, or pneumothorax seen. The cardiac silhouette size is more promine nt measuring upper limits of normal. Mild diffuse tracheal narrowing just above superior level of cla vicles is noted. The osseous structures are intact. IMPRESSION: Chronic emphysematous change without acute pulmonary process.
== END | disposition home or self-care (01) ==
LOC: RADXRYALE 08:57
PROVIDERS: ATTEND Family Medicine
DX: J43.9 Emphysema, unspecified (principal)
CPT/HCPCS: 71046

== ENCOUNTER → 2022-01-17 | Outpatient (CLI) | payer MEDICAID ==
--- NOTE | 2022-01-17 15:47 | XR ---
EXAMINATION TYPE: XR chest 2V DATE OF EXAM: 01/17/2022 COMPARISON: 07/25/2021 TECHNIQUE: PA and lateral views submitted. HISTORY: Cough FINDINGS: The lungs are clear and there is no pneumothorax, pleural effusion, or focal pneumonia. Heart size is normal. No overt failure. Biapical pleural thickening. Hypertrophic changes of the spine. IMPRESSION: 1. No acute process.
== END | disposition home or self-care (01) ==
LOC: RADXRYALE 11:10
PROVIDERS: ATTEND Family Medicine
DX: R06.02 Shortness of breath (principal); R05.3 Chronic cough
CPT/HCPCS: 71046

== ENCOUNTER → 2022-01-23 | Outpatient (CLI) | payer MEDICAID ==
[2022-01-23 13:37] LABS: Partial Thromboplastin Time 28.2 sec (22.0-30.0)
[2022-01-23 18:08] LABS: HCT 48.9 % (39.6-50.0); HGB 16.7 g/dL (13.0-17.0); MCH 30.5 pg (27.0-32.0); MCHC 34.2 g/dL (32.0-37.0); MCV 89.4 fL (80.0-97.0); Mean Platelet Volume 11.4 fL (9.5-12.2); NRBC Per 100 WBC 0 /100 WBCS (0.0-0.0); Platelet Count 215 X 10*3/uL (140-440); RBC 5.47 X 10*6/uL (4.40-5.60); RDW 12.9 % (11.5-14.5); WBC 6.39 X 10*3/uL (4.50-10.00)
[2022-01-23 18:23] LABS: African American GFR (CKD) 91.4 (60.0-200.0); Albumin 4.9 g/dL (3.8-4.9); Albumin/Globulin Ratio 1.6 (1.60-3.17); Anion Gap 12.9 mmol/L (10.00-18.00); BUN/Creat Ratio 11.68 Ratio (12.00-20.00); Blood Urea Nitrogen 12.5 mg/dL (9.0-27.0); Calcium 9.8 mg/dL (8.7-10.3); Carbon Dioxide 23.5 mmol/L (20.0-27.5); Globulin 3.1 g/dL (1.6-3.3); Non-African American GFR(CKD) 78.8 (60.0-200.0); Potassium 4.2 mmol/L (3.5-5.5); Total Bilirubin 0.9 mg/dL (0.30-1.20)
[2022-01-23 21:08] LABS: Appearance,Urine Clear (Clear); Bilirubin,Urine Negative (Negative); Blood,Urine Moderate (Negative); Color,Urine Yellow (Yellow); Ketones,Urine Negative (Negative); Leukocyte Esterase,Urine Negative (Negative); Nitrite,Urine Negative (Negative); PH, Urine 5.5 (5.0-8.0); Protein,Urine Negative (Negative); Specific Gravity,Urine 1.016 (1.001-1.030); Urobilinogen,Urine 0.2 (0.2,1.0)
[2022-01-23 21:11] LABS: Bacteria,Urine None Seen /HPF (None Seen); WBC,Urine 0-5 /HPF (0-5)
== END | disposition home or self-care (01) ==
LOC: LABPAT 11:47
PROVIDERS: ATTEND Orthopaedic Surgery
DX: Z01.812 Encounter for preprocedural laboratory examination (principal)
CPT/HCPCS: 36415; 80053; 81001; 85027; 85610; 85730; 87070

== ENCOUNTER → 2022-03-06 | Outpatient (CLI) | payer MEDICAID ==
--- NOTE | 2022-03-06 15:58 | XR ---
EXAMINATION TYPE: XR knee complete LT DATE OF EXAM: 03/06/2022 CLINICAL HISTORY: Injury with pain TECHNIQUE: Three views of the left knee are obtained. COMPARISON: Bilateral knee x-rays September 30, 2019. FINDINGS: There is no acute fracture/dislocation evident in left knee. Moderate narrowing inferior a spect patellofemoral compartment with mild spurring is more prominent from prior. Moderate narrowing medial tibiofemoral compartment is more prominent from prior. The overlying soft tissue appears unrem arkable. IMPRESSION: There is no acute fracture or dislocation in the left knee.
--- NOTE | 2022-03-06 18:58 | XR ---
EXAMINATION TYPE: XR Hip Complete LT DATE OF EXAM: 03/06/2022 COMPARISON: X-ray dated 02/07/2022 INDICATION: Pain TECHNIQUE: 2 views of the left hip FINDINGS: Status post left total hip arthroplasty. No gross hardware complication. Suspected subtle surrounding soft tissue calcification. Left pelvic phlebolith. IMPRESSION: No definite acute abnormality identified.
== END | disposition home or self-care (01) ==
LOC: RADXRYALE 13:51
PROVIDERS: ATTEND Physician Assistant
DX: M25.562 Pain in left knee (principal); M25.552 Pain in left hip; S89.92XA Unspecified injury of left lower leg, initial encounter; X58.XXXA Exposure to other specified factors, initial encounter
CPT/HCPCS: 73502

== ENCOUNTER 2022-04-17 09:49 | Day surgery (SDC) | payer MEDICAID ==
[2022-04-13 15:58] VITALS: BMI 38.5
[~2022-04-17 09:49] MED LIST changes: +DEXAMETHASONE SOD PHOSPHATE 4 MG/ML 1 ML VIAL IV ONE; -HYDROmorphone 0.5 MG/0.5 ML SYRINGE IVP PRN; +LACTATED RINGERS 1,000 ML IV SCH; -LIDOCAINE 1% (10MG/ML) FOR IV START INTRADERMA PRN; +ONDANSETRON 4 MG/2 ML VIAL IVP ONE; -ROPIVACAINE 246.25 MG, EPINEPHrine 0.5 MG, KETOROLAC 30 MG, cloNIDine HCL/PF 80 MCG, WA... MISCELLANE ONE; +SCOPOLAMINE 1 MG/72 HR PATCH TRANSDERM ONE; -TRANEXAMIC ACID 1,000 MG in SODIUM CHLORIDE 0.9% 100 ML IVPB ONE
[2022-04-17 10:17] VITALS: TEMP 97.2
[2022-04-17] MEDS ORDERED: PROPOFOL 10 MG/ML 20 ML VIAL IV ONE (12:12)
[2022-04-17] MEDS ORDERED: LIDOCAINE 2% INJ 20 MG/ML (2 ML VIAL) ONE (12:12)
[2022-04-17] MEDS ORDERED: HYDROmorphone (PF) 1 MG/ML ONE (12:12)
[2022-04-17] MEDS ORDERED: fentaNYL (PF) 50 MCG/ML 2 ML AMP ONE (12:12)
[2022-04-17] MEDS ORDERED: MIDAZOLAM 2 MG/2 ML VIAL ONE (12:12)
[2022-04-17] MEDS ORDERED: BUPIVACAINE (PF) 0.25% 30 ML VIAL MISCELLANE ONE ×2 (12:39→12:51)
--- NOTE | 2022-04-17 12:54 | P.OP ---
Date of Procedure: 04/17/22 Preoperative Diagnosis: 1. Torn medial meniscus left knee Postoperative Diagnosis: 1. Torn medial meniscus left knee 2. 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 Synovitis Procedure(s) Performed: 1. Arthroscopy left knee with partial medial meniscectomy (15% of meniscus excised) 2. Chondroplasty of the medial femoral and patellofemoral compartments 3. Partial synovectomy of the medial femoral, lateral femoral, and patellofemoral compartments. Anesthesia: GETA Surgeon: Jd Murrieta Estimated Blood Loss (ml): 5 Pathology: none sent Condition: stable Disposition: PACU Indications for Procedure: This is a 51-year-old gentleman that sustained an injury to his left knee and an MRI demonstrated torn medial meniscus. After discussing the surgical and nonsurgical treatment options with him at length, he wishes to proceed with arthroscopic debridement of his left knee and informed consent was obtained. Operative Findings: The operative findings are consistent with a torn medial meniscus left knee, grade 2 chondral malacia medial femoral condyle and patellofemoral compartment, and synovitis Description of Procedure: Patient was seen and evaluated in the preoperative area, the operative site was marked with a skin marker. The patient was then brought to the operating room and given 2 g of Ancef intravenously. A general anesthetic was administered by the anesthesia department. Tourniquet was placed on the right upper thigh and the left lower extremity was then prepped and draped in usual sterile fashion. A universal timeout was then performed confirming the patient's name, surgical site, ALLERGIES, and consent. The limb was then exsanguinated and tourniquet insufflated to 250 mmHg. Standard inferior medial and inferior lateral portals were established in the knee. The trochar was inserted in the inferolateral portal. Examination began at the patellofemoral joint. There is noted to be grade 2 chondral malacia the patellofemoral compartment and a moderate amount of synovitis. Next the medial compartment was visualized. There was a tear of the posterior horn of the medial meniscus. There was grade 2 chondral malacia the mediofemoral compartment and synovitis. The notch area was then visualized and the ACL was intact. The Lateral compartment was then visualized and there was no tear of the lateral meniscus. There was no evidence of chondromalacia, but a mild amount of synovitis. Next, using an arthroscopic shaver and a biter, partial medial meniscectomy was performed stable margins. Approximately 15% of the meniscus was excised. A partial synovectomy is performed the medial femoral, lateral femoral, patellofemoral compartments. Chondroplasty was also performed of the medial femoral and patellofemoral compartments of the knee. Knee was then copiously irrigated, instruments removed, incisions were closed with 4-0 nylon. 30 mL of quarter percent plain Marcaine was injected sterilely into the surgical area. A sterile dressing was then applied, and the tourniquet was released. Patient was then transferred to recovery room in stable condition.condition.
[2022-04-17 14:26] VITALS: RESP 18
[2022-04-17] MEDS ORDERED: traMADol 50 MG TAB ONE (14:41)
[2022-04-17 15:09] VITALS: BP 127/79; PULSE 62
== END 2022-04-17 15:46 | disposition home or self-care (01) ==
LOC: OR 09:49
PROVIDERS: ATTEND Orthopaedic Surgery
DX: S83.232A Complex tear of medial meniscus, current injury, left knee, initial encounter (principal); M94.262 Chondromalacia, left knee; M65.9 Synovitis and tenosynovitis, unspecified; X58.XXXA Exposure to other specified factors, initial encounter
CPT/HCPCS: 29881; J2250; J1100; J2405; J3010; J1170; J2704; J2001

== ENCOUNTER 2024-09-10 06:34 | Day surgery (SDC) | payer BC, OTHER ==
[2024-09-05 11:36] VITALS: BMI 41.7
[~2024-09-10 06:34] MED LIST changes: -DEXAMETHASONE SOD PHOSPHATE 4 MG/ML 1 ML VIAL IV ONE; -LACTATED RINGERS 1,000 ML IV SCH; -MIDAZOLAM 2 MG/2 ML VIAL IV PRN; -ONDANSETRON 4 MG/2 ML VIAL IVP ONE; -Pre Op ABX Message 1 EACH MISC MISCELLANE ONE; -SCOPOLAMINE 1 MG/72 HR PATCH TRANSDERM ONE; +TETRACAINE 0.5% OPHTH (PF) DROPS 4 ML BTL OP PRN; -fentaNYL (PF) 50 MCG/ML 2 ML AMP IV PRN
[2024-09-10] MEDS: CYCLOPENTOLATE 1% OPHTH SOLN 2 ML BTL OP PRN (06:55)
[2024-09-10] MEDS: PHENYLEPHRINE 2.5% OPHTH DRP 2ML OP PRN (06:58)
[2024-09-10 07:11] VITALS: RESP 16; TEMP 96.4
[2024-09-10] MEDS: IV FLUID CONTINUATION 1,000 ML IV ONE (07:14)
[2024-09-10] MEDS: LACTATED RINGERS 1,000 ML IV SCH (07:17)
[2024-09-10 07:25] LABS: Glucose,Whole Blood 100 mg/dL (70-110)
[2024-09-10] MEDS ORDERED: MIDAZOLAM 2 MG/2 ML VIAL ONE (07:29)
[2024-09-10] MEDS ORDERED: fentaNYL (PF) 50 MCG/ML 2 ML AMP ONE (07:29)
[2024-09-10] MEDS: EPINEPHrine (PF) 0.3 ML in BALANCED SALT IRRIG SOLN COMB2 500 ML IRRIGATION ONE (07:43)
[2024-09-10] MEDS: HYALURONATE SODIUM INTRAOCULAR 1 EACH SYRINGE (12MG/ML) INTRAOCULA ONE (07:50)
[2024-09-10] MEDS: BALANCED SALT IRRIG SOLN COMB2 15 ML IRRIG.SOLN INTRAOCULA ONE (07:51)
[2024-09-10] MEDS: LIDOCAINE 1% (PF) 10MG/ML VIAL MISCELLANE ONE (07:51)
[2024-09-10] MEDS: MOXIFLOXACIN HCL 0.5% DROPS 3 ML BTL OP PRN (07:52)
[2024-09-10] MEDS: TIMOLOL 0.5% OPHTH DROPS 5 ML BTL OP PRN (07:53)
--- NOTE | 2024-09-10 08:10 | P.OP ---
Date of Procedure: 09/10/24 Preoperative Diagnosis: NS Postoperative Diagnosis: same Procedure(s) Performed: PIOL, OD Implants: [id number] +19.50 Anesthesia: MAC Surgeon: Chris Gan Pathology: none sent Condition: stable Disposition: same day Indications for Procedure: blurry vision Operative Findings: no complications
[2024-09-10 08:32] VITALS: BP 106/52; PULSE 58
--- NOTE | 2024-09-11 09:59 | OP ---
OPERATIVE REPORT DATE OF SERVICE : 09/10/2024 PROCEDURE: Phacoemulsification of cataract and intraocular lens implant of the right eye. PREOPERATIVE DIAGNOSIS: Nuclear sclerosis. POSTOPERATIVE DIAGNOSIS: Nuclear sclerosis. ANESTHESIA: Topical. ESTIMATED BLOOD LOSS: None. SPECIMEN TAKEN: None. NARRATIVE: After obtaining the appropriate consent, the patient was brought to the operating room, there he was placed under cardiac monitoring, prepped and draped in the usual sterile manner. He was approached from his right temporal side. Using previously acquired corneal topography information, the axis of 174 degrees was identified and marked with a [facility] axis marker. At the 11 o'clock position, an MVR blade was used to create a paracentesis port. Through this opening, 1% Xylocaine MPF 50:50 mix with balanced salt solution was injected into the anterior chamber. This was followed by stabilization of the anterior chamber with Amvisc. At the 9 o'clock position, a 2.5 mm keratome was used to create a self-sealing corneal flap incision. Through this opening, a cystotome was introduced to begin a continuous tear capsulorrhexis which was completed using the Utrata forceps. Hydrodissection and hydrodelineation of the lens was accomplished with balanced salt solution. Phacoemulsification of the lens utilizing phaco chop was accomplished at 7.65 seconds at 15.9% power. Additional lidocaine MPF was instilled into the anterior chamber. This was followed by removal of the remaining cortical material from in and around the capsular bag as well as careful polishing of the posterior capsule in a capsule vacuum mode. Additional Amvisc was used to stabilize the capsular bag and an Kali model TF 8040, 19.5 diopter posterior chamber intraocular lens was then inserted into the capsular bag without difficulty. The remaining viscoelastic was removed from in and around the intraocular lens and the lens was then aligned with the previously placed 174 degree axis kiara which was on the patient's cornea. Both temporal as well as paracenteses were confirmed watertight after the eye was brought to normal intraocular pressure through the paracentesis. He then received 2 drops of 0.5% timolol followed by 2 drops of 0.5% moxifloxacin. It was then lightly patched and shielded in the usual manner. There were no complications from the procedure. He tolerated the procedure well and was returned to outpatient recovery in good condition. MMODL / IJN: [id number] /
== END 2024-09-10 09:25 | disposition home or self-care (01) ==
LOC: OR 06:34
PROVIDERS: ATTEND Ophthalmology
DX: H25.11 Age-related nuclear cataract, right eye (principal); I48.92 Unspecified atrial flutter; G47.33 Obstructive sleep apnea (adult) (pediatric); M54.50 Low back pain, unspecified; E66.01 Morbid (severe) obesity due to excess calories; Z68.41 Body mass index [BMI] 40.0-44.9, adult; Z79.899 Other long term (current) drug therapy
CPT/HCPCS: 66984; V2787; C1780; J2250; J0171; J3010; J2003

== ENCOUNTER 2024-09-17 08:44 | Day surgery (SDC) | payer BC, OTHER ==
[2024-09-12 15:30] VITALS: BMI 42.3
[2024-09-17] MEDS: IV FLUID CONTINUATION 1,000 ML IV ONE (09:08)
[2024-09-17 09:10] VITALS: TEMP 97
[2024-09-17] MEDS: CYCLOPENTOLATE 1% OPHTH SOLN 2 ML BTL OP PRN (09:16)
[2024-09-17] MEDS: PHENYLEPHRINE 2.5% OPHTH DRP 2ML OP PRN (09:19)
[2024-09-17] MEDS: LACTATED RINGERS 1,000 ML IV SCH (09:27)
[2024-09-17] MEDS ORDERED: MIDAZOLAM 2 MG/2 ML VIAL ONE (09:54)
[2024-09-17] MEDS ORDERED: fentaNYL (PF) 50 MCG/ML 2 ML AMP ONE (09:54)
[2024-09-17] MEDS: EPINEPHrine (PF) 0.3 ML in BALANCED SALT IRRIG SOLN COMB2 500 ML IRRIGATION ONE (10:22)
[2024-09-17] MEDS: HYALURONATE SODIUM INTRAOCULAR 1 EACH SYRINGE (12MG/ML) INTRAOCULA ONE (10:23)
[2024-09-17] MEDS: BALANCED SALT IRRIG SOLN COMB2 15 ML IRRIG.SOLN INTRAOCULA ONE (10:24)
[2024-09-17] MEDS: MOXIFLOXACIN HCL 0.5% DROPS 3 ML BTL OP PRN (10:24)
[2024-09-17] MEDS: LIDOCAINE 1% (PF) 10MG/ML VIAL MISCELLANE ONE (10:24)
[2024-09-17] MEDS: TIMOLOL 0.5% OPHTH DROPS 5 ML BTL OP PRN (10:24)
--- NOTE | 2024-09-17 10:37 | P.OP ---
Date of Procedure: 09/17/24 Preoperative Diagnosis: NS Postoperative Diagnosis: same Procedure(s) Performed: PIOL, OS Implants: [id number] 19.00 Anesthesia: MAC Surgeon: Chris Gan Pathology: none sent Condition: stable Disposition: same day Indications for Procedure: blurry vision Operative Findings: no complications
[2024-09-17 10:54] VITALS: RESP 16
[2024-09-17 10:56] VITALS: BP 117/77; PULSE 59
--- NOTE | 2024-09-17 19:13 | OP ---
OPERATIVE REPORT DATE OF SERVICE : 09/17/2024 PROCEDURE: Phacoemulsification of cataract and intraocular lens implant of the left eye. PREOPERATIVE DIAGNOSIS: Nuclear sclerosis. POSTOPERATIVE DIAGNOSIS: Nuclear sclerosis. ANESTHESIA: Topical. ESTIMATED BLOOD LOSS: None. SPECIMEN TAKEN: None. NARRATIVE: After obtaining the appropriate consent, the patient was brought to the operating room. There he was placed under cardiac monitoring, prepped and draped in the usual sterile manner. Using previously acquired corneal topography information, the axis of 2 degrees was identified and marked with a [employer] axis marker. This was followed by a paracentesis at the 5 o'clock position. Through this opening, 1% lidocaine MPF in balanced salt solution was then injected into the anterior chamber. This was followed by stabilization of the anterior chamber with Amvisc. At the 3 o'clock position, a 2.5 mm keratome was used to create a self-sealing corneal flap incision. Through this opening, a cystotome was introduced to begin a continuous tear capsulorrhexis which was then completed using the Utrata forceps. Hydrodissection and hydrodelineation of the lens were accomplished with balanced salt solution. Phacoemulsification of the lens utilizing phaco chop was accomplished at 6.88 seconds at 11.1% power. Additional lidocaine MPF was instilled into the anterior chamber. This was followed by removal of the remaining cortical material under irrigation and aspiration as well as careful polishing of the posterior capsule in the capsule vacuum mode. Additional Amvisc was then used to stabilize the capsular bag through the temporal incision. An Kali [employer] Pan[employer]ix model [id number], 19 diopter posterior chamber intraocular lens was then inserted into the capsular bag without difficulty. The remaining viscoelastic was removed from in and around the intraocular lens. The lens was then oriented in alignment with the axes marked on the patient's cornea previously with a [employer] axis marker. The eye was brought to normal intraocular pressure through the paracentesis port. All wounds were confirmed watertight. He then received 2 drops of 0.5% timolol followed by 2 drops of 0.5% moxifloxacin. He was then lightly patched and shielded in the usual manner. There were no complications from the procedure. He tolerated the procedure well and was returned to outpatient recovery in good condition. MMODL / IJN: [id number] /
== END 2024-09-17 11:18 | disposition home or self-care (01) ==
LOC: OR 08:44
PROVIDERS: ATTEND Ophthalmology
DX: H25.12 Age-related nuclear cataract, left eye (principal)
CPT/HCPCS: 66984; V2787; C1780; J2250; J0171; J3010; J2003